=== PATIENT | female | born 2000 | race Caucasian/White ===

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

== ENCOUNTER 2023-07-17 12:50 | Emergency (ER) | payer BC, SELFPAY ==
[2023-07-17 12:53] VITALS: BP 126/109; PULSE 92; RESP 18; TEMP 36.6; O2SAT 99; BMI 33.7
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
--- NOTE | 2023-07-17 13:25 | CT_ITS ---
STUDY: CT CERVICAL SPINE WITHOUT CONTRAST REASON FOR EXAM: Female, 23 years old. [facility] RADIATION DOSAGE (If Supplied By Facility): CTDIvol = ( 24.46 ) mGy, DLP = ( 545.21 ) mGycm TECHNIQUE: High resolution transaxial imaging was performed without contrast material. Sagittal and coronal images were reconstructed. Individualized dose optimization techniques were used for this CT. COMPARISON: None FINDINGS: Normal craniovertebral junction. Normal anterior atlantoaxial articulation. Normal odontoid process. There is straightening of the normal cervical lordosis. Normal vertebral bodies and posterior osseous elements. C2-3: Normal endplates. Normal disc height and morphology. Normal central canal and intervertebral neuroforamina. C3-4: Normal endplates. Normal disc height and morphology. Normal central canal and intervertebral neuroforamina. C4-5: Normal endplates. Normal disc height and morphology. Normal central canal and intervertebral neuroforamina. C5-6: Normal endplates. Normal disc height and morphology. Normal central canal and intervertebral neuroforamina. C6-7: Normal endplates. Normal disc height and morphology. Normal central canal and intervertebral neuroforamina. C7-T1: Normal endplates. Normal disc height and morphology. Normal central canal and intervertebral neuroforamina. There is a 1.5 cm x 0.8 cm hypodensity in the left lobe of the thyroid. CT/Spine Cervical without Contras IMPRESSION: Normal unenhanced CT examination of the cervical spine. Electronically Signed: Juliocesar Ronquillo MD at 13:40 EST ,
--- NOTE | 2023-07-17 13:25 | CT_ITS ---
STUDY: CT BRAIN WITHOUT CONTRAST REASON FOR EXAM: Female, 23 years old. [facility] RADIATION DOSAGE (If Supplied By Facility): CTDIvol = ( 44.99 ) mGy, DLP = ( 832.67 ) mGycm TECHNIQUE: Transaxial CT imaging of the brain was performed without administration of intravenous contrast material. Individualized dose optimization techniques were used for this CT. COMPARISON: No relevant priors. FINDINGS: Normal soft tissue structures. Normal calvarium. Normal size ventricles and extra-axial spaces for the patient''s age. Normal white matter tracts of the cerebral hemispheres. Normal basal ganglia and thalami. Normal brainstem. Normal cerebellum. There is no intracranial hemorrhage. There are no findings of an acute ischemic infarction. There is opacification of the right maxillary sinus. Small polyp or retention cyst at the base of the left maxillary sinus. Partial opacification of the anterior aspect of the right ethmoid sinus. CT/Brain/Head without Contrast IMPRESSION: Normal unenhanced CT scan of the brain. Sinusitis. Electronically Signed: Juliocesar Ronquillo MD at 13:38 EST ,
[2023-07-17] MEDS: Naproxen 500 MG Tablet PO (14:17)
[2023-07-17 14:20] VITALS: BP 120/68; PULSE 72; RESP 18; TEMP 36.6; O2SAT 100
--- OUTSIDE RECORDS SUMMARY | 2023-07-17 15:05 | XMS RPT_ITS | CCD ---
Author Name Unknown Address [id number] [place] [address] Organization [facility] Care Team Providers Care Travel Clerk Name Role Phone Nicole Pearce LPN Unavailable Unavailable Nicole Pearce LPN Unavailable Unavailable Lynette Alvarez MD Primary Care Provider Lynette Alvarez MD Primary Care Provider [phone] LYNETTE ALVAREZ Attending Unavailable LYNETTE ALVAREZ Primary Care Unavailable LYNETTE ALVAREZ Primary Care Unavailable LYNETTE ALVAREZ Primary Care Unavailable Allergies Allergy Classification Reported Allergen(s) Allergy Type Date of Onset Reaction(s) Facility (3 sources) environmental allergies [Other] Propensity to adverse reactions 0 [facility] Work Phone: (1 source) OTHER; Translations: [OTHER] Propensity to adverse reactions (disorder) 0 [facility] Repository Medications Current Medications Medication Drug Class(es) Dates Sig (Normalized) Sig (Original) methylPREDNISolone (1 source) Corticosteroid Start: 11-23-2021 End: 11-29-2021 methylPREDNISolone (MEDROL, CHAPARRO,) 4 mg Dose-Pack Follow dosing instructions, take with food. 1 Package 0 11/23/2021 11/29/2021 Active Completed/Discontinued Medications Medication Drug Class(es) Dates Sig (Normalized) Sig (Original) adapalene 0.001 mg/mg / benzoyl peroxide 0.025 mg/mg topical gel (1 source) Retinoid Start: 07-02-2022 adapalene-benzoyl peroxide (EPIDUO) 0.1-2.5 % glwp Indications: Acne vulgaris Apply sparingly to the face at bedtime 45 g 4 07/02/2022 Active Problems Problem Classification Problem Date Documented Da te Episodic/Chronic Allergic reactions (3 sources) Atopic dermatitis; Translations: [Other atopic dermatitis] Onset: 08-13-2005 08-13-2005 Chronic Asthma (3 sources) Mild intermittent asthma; Translations: [Mild intermittent asthma, uncomplicated] Onset: 10-08-2012 10-08-2012 Chronic Diabetes mellitus without complication (1 source) Ketonuria; Translations: [Acetonuria] Episodic Headache; including migraine (3 sources) Migraine without aura, not refractory ; Translations: [Migraine without aura, not intractable, without status migrainosus] Onset: 12-19-2017 01-14-2019 Chronic Menstrual disorders (1 source) Irregular periods; Translations: [Irregular menstruation, unspecified] Chronic Other disorders of stomach and duodenum (1 source) Upset stomach; Translations: [Functional dyspepsia] Episodic Other skin disorders (1 source) Eruption; Translations: [Rash and other nonspecific skin eruption] Episodic Other skin disorders (1 source) Acne vulgaris; Translations: [Acne vulgaris] Episodic Results Test Name Value Interpretation Reference Range Facil ity Vital Signs Date Time Vital Sign Value Performing Clinician Faci lity 07-02-2022 10:23-0500 Body temperature 99.1 [degF] Lynette Alvarez MD Work Phone: [facility] 07-02-2022 10:23-0500 Body weight 90.08 kg Lynette Alvarez MD Work Phone: [facility] 07-02-2022 10:23-0500 Diastolic blood pressure 62 mm[Hg] Lynette Alvarez MD Work Phone: [facility] 07-02-2022 10:23-0500 Heart rate 100 /min Lynette Alvarez MD Work Phone: [facility] 07-02-2022 10:23-0500 Respiratory rate 16 /min Lynette Alvarez MD Work Phone: [facility] 07-02-2022 10:23-0500 Systolic blood pressure 118 mm[Hg] Lynette Alvarez MD Work Phone: [facility] 06-27-2022 10:11-0500 Body temperature 97 [degF] Randall Beckham APRN.CNP Work Phone: [facility] 06-27-2022 10:11-0500 Body weight 89.72 kg Randall Beckham WAITER/[employer]ESS [employer]USB[employer] Work Phone: [facility] 06-27-2022 10:11-0500 Diastolic blood pressure 82 mm[Hg] Randall Chapincito WAITER/[employer]ESS [employer].DA[employer] HUSBANDMAN Work Phone: [facility] 06-27-2022 10:11-0500 Heart rate 130 /min Randall Chapincito WAITER/[employer] HUSBANDMAN Work Phone: [facility] 06-27-2022 10:11-0500 Respiratory rate 20 /min Randall Chapincito WAITER/[employer] HUSBANDMAN Work Phone: [facility] 06-27-2022 10:11-0500 SaO2% (BldA) [Mass fraction] 99 % Randall Chapincito WAITER/[employer] HUSBANDMAN Work Phone: [facility] 06-27-2022 10:11-0500 Systolic blood pressure 124 mm[Hg] Randall Chapincito WAITER/[employer] HUSBANDMAN Work Phone: [facility] 11-23-2021 07:45-0400 Body temperature 98.8 [degF] Jazzy Yung WAITER/[employer]ESS [employer].DA[employer] HUSBANDMAN Work Phone: [facility] 11-23-2021 07:45-0400 Body weight 87.82 kg Jazzyjennifer Jaimesk WAITER/[employer]ESS [employer] HUSBANDMAN Work Phone: [facility] 11-23-2021 07:45-0400 Diastolic blood pressure 66 mm[Hg] Jazzy Yung WAITER/[employer].DAIR[employer] HUSBANDMAN Work Phone: [facility] 11-23-2021 07:45-0400 Heart rate 127 /min Jazzy Yung WAITER/[employer].DAIR[employer] HUSBANDMAN Work Phone: [facility] 11-23-2021 07:45-0400 Respiratory rate 18 /min Jazzy Yung WAITER/[employer].DA[employer] HUSBANDMAN Work Phone: [facility] 11-23-2021 07:45-0400 SaO2% (BldA) [Mass fraction] 97 % Jazzy Yung WAITER/[employer].DA[employer] HUSBANDMAN Work Phone: [facility] 11-23-2021 07:45-0400 Systolic blood pressure 122 mm[Hg] Jazzy Barragan APRN.DAIRY HUSBANDMAN Work Phone: [facility] 12-20-2016 12:39-0400 BMI (Body Mass Index) 25.46 kg/m2 Nicole Pearce LPN [facility] Work Phone: 12-20-2016 12:39-0400 BP Diastolic 52 mm[Hg] Nicole Pearce LPN [facility] Work Phone: 12-20-2016 12:39-0400 BP Systolic 122 mm[Hg] Nicole Pearce LPN [facility] Work Phone: 12-20-2016 12:39-0400 Height 165.1 cm Nicole Pearce LPN [facility] Work Phone: 12-20-2016 12:39-0400 Pulse (Heart Rate) 85 /min Nicole Pearce LPN [facility] Work Phone: 12-20-2016 12:39-0400 Weight 69.4 kg Nicole Pearce LPN [facility] Work Phone: Encounters Encounter Date Encounter Type Care Provider Facility Start: 07-02-2022 End: 07-02-2022 ambulatory LYNETTE ALVAREZ Facility:[facility] Start: 07-02-2022 End: 07-02-2022 Patient encounter procedure Lynette Alvarez MD Work Phone: [facility] Procedures Date Procedure Procedure Detail Performing Clinician Start: 07-02-2022 Gluc bld gluc mntr dev cleared fda spec home use Lynette Alvarez MD Work Phone: Start: 07-02-2022 Urnls dip stick/tablet rgnt auto w/o microscopy Lynette Alvarez MD Work Phone: Start: 06-27-2022 End: 06-27-2022 Urnls dip stick/tablet rgnt auto w/o microscopy Randall Beckham APRN.DAIRY HUSBANDMAN Work Phone: Start: 07-09-2018 Adult depression screening assessment Jazzy Barragan APRN.DAIRY HUSBANDMAN Work Phone: Start: 12-20-2016 History and physical examination, sports participation Sports physical examination Nicole Ramses ANDERSEN Plan of Treatment Date Care Activity Detail Author Start: 01-04-2024 Urine microalbumin profile DTAP,TDAP,TD (7 - Td or Tdap) [facility] Start: 07-02-2023 ANNUAL PCP TEAM CHRONIC DISEASE VISIT ANNUAL PCP TEAM CHRONIC DISEASE VISIT [facility] Start: 06-22-2022 ANNUAL PCP TEAM CHRONIC DISEASE VISIT ANNUAL PCP TEAM CHRONIC DISEASE VISIT [facility] Start: 05-26-2022 DEPRESSION ASSESSMENT DEPRESSION ASSESSMENT [facility] Start: 01-24-2022 Influenza vaccination INFLUENZA (#1) [facility] Start: 07-05-2021 CHLAMYDIA SCREENING (18-24) CHLAMYDIA SCREENING (18-24) [facility] Start: 07-05-2021 GC (GONORRHEA) SCREENING (18-24) GC (GONORRHEA) SCREENING (18-24) [facility] Start: 2020 SPIROMETRY SPIROMETRY [facility] Start: 07-09-2019 Adult depression screening assessment DEPRESSION SCREENING [facility] Start: 07-09-2019 ASTHMA CONTROL TEST ASTHMA CONTROL TEST [facility] Start: 12-20-2016 End: 12-20-2016 Appointment Appointment [facility] Work Phone: Start: 2016 PEDS TO ADULT TRANSITION ANNUAL ASSESSMENT PEDS TO ADULT TRANSITION ANNUAL ASSESSMENT [facility] Start: 2014 PEDS TO ADULT TRANSITION INITIAL DISCUSSION PEDS TO ADULT TRANSITION INITIAL DISCUSSION [facility] Start: 2012 MENINGOCOCCAL B: Consider based on risk (1 of 2 - Risk Bexsero 2-dose series) MENINGOCOCCAL B: Consider based on risk (1 of 2 - Risk Bexsero 2-dose series) [facility] Start: 2008 PNEUMOCOCCAL (1 - PCV) PNEUMOCOCCAL (1 - PCV) [facility] Start: 2004 ASTHMA ACTION PLAN ASTHMA ACTION PLAN [facility] Start: 2002 COVID-19 VACCINE (#1) COVID-19 VACCINE (#1) [facility] Glucose [Mass/volume ] in Serum or Plasma GLUCOSE, BLOOD (POC) Lab Routine Urine ketone Ordered: 07/02/2022 [facility] Work Phone: Immunizations Immunization Date Immunization Notes Care Provider Fa cility 07-09-2018 meningococcal polysaccharide (groups A, C, Y and W-135) diphtheria toxoid conjugate vaccine (MCV4P) Jazzy Jaimesk WAITER/WAITRESS [employer].[facility] Work Phone: [facility] Work Phone: 12-19-2014 human papilloma viru s vaccine, quadrivalent Jazzy Yung WAITER/WAITRESS [employer].[facility] Work Phone: [facility] Work Phone: 12-19-2014 meningococcal polysaccharide (groups A, C, Y and W-135) diphtheria toxoid conjugate vaccine (MCV4P) Jazzy Jaimesk WAITER/[employer]RESS [employer].[facility] Work Phone: [facility] Work Phone: 12-19-2014 varicella virus vaccine Bebo a Yung WAITER/[employer]ESS [employer].[facility] Work Phone: [facility] Work Phone: 01-03-2014 human papilloma viru s vaccine, quadrivalent Jazzyjennifer Jaimesk WAITER/[employer]RESS [employer].[facility] Work Phone: [facility] Work Phone: 01-03-2014 tetanus toxoid, redu mc diphtheria toxoid, and acellular pertussis vaccine, adsorbed Jazzy Yung WAITER/[employer]RESS [employer].[facility] Work Phone: [facility] Work Phone: 02-23-2009 influenza virus vacc ine, unspecified formulation Jazzyjennifer Barragan WAITER/[employer]RESS [employer].[facility] Work Phone: [facility] Work Phone: 12-14-2007 diphtheria, tetanus toxoids and acellular pertussis vaccine Jazzy Yung WAITER/[employer].[facility] Work Phone: [facility] Work Phone: 12-14-2007 measles, mumps and rubella virus vaccine Jazzy Yung WAITER/[employer].[facility] Work Phone: [facility] Work Phone: 12-14-2007 poliovirus vaccine, inactivated Jazyzjennifer Barragan WAITER/[employer]RESS [employer].[facility] Work Phone: [facility] Work Phone: 03-13-2004 influenza virus vacc ine, unspecified formulation Jazzyjennifer Barragan WAITER/[employer]RESS [employer] HUSB[employer] Work Phone: [facility] Work Phone: 07-28-2003 diphtheria, tetanus toxoids and acellular pertussis vaccine Jazzy Yung WAITER/[employer]ESS [employer]USB[employer] Work Phone: [facility] Work Phone: 07-28-2003 haemophilus influenz ae type b vaccine, HbOC conjugate Jazzy Barragan WAITER/[employer]RESS [employer] HUSB[employer] Work Phone: [facility] Work Phone: 07-28-2003 varicella virus vaccine Bebo ronnie Barragan WAITER/[employer]ESS [employer].[facility] Work Phone: [facility] Work Phone: 04-28-2003 influenza virus vacc ine, unspecified formulation Jazzy Barragan WAITER/[employer] Work Phone: [facility] Work Phone: 04-28-2003 measles, mumps and rubella virus vaccine Jazzy Barragan WAITER/[employer]RESS [employer]USB[employer] Work Phone: [facility] Work Phone: 04-28-2003 pneumococcal conjuga te vaccine, 7 valent Jazzy Barragan WAITER/[employer].[facility] Work Phone: [facility] Work Phone: 01-20-2003 hepatitis B vaccine, pediatric or pediatric/adolescent dosage Jazzy Barragan WAITER/[employer]ESS [employer]USB[employer] Work Phone: [facility] Work Phone: 01-20-2003 poliovirus vaccine, inactivated Jazzy Barragan WAITER/[employer]ESS [employer] HUSBAND[employer] Work Phone: [facility] Work Phone: 2002 diphtheria, tetanus toxoids and acellular pertussis vaccine Jazzy Barragan WAITER/[employer]ESS [employer]USB[employer] Work Phone: [facility] Work Phone: 2002 haemophilus influenz ae type b vaccine, HbOC conjugate Jazzy Barragan WAITER/[employer]RESS [employer] HUSBAND[employer] Work Phone: [facility] Work Phone: 2002 pneumococcal conjuga te vaccine, 7 valent Jazzy Yung WAITER/[employer]RESS [employer].[facility] Work Phone: [facility] Work Phone: 2002 diphtheria, tetanus toxoids and acellular pertussis vaccine Jazzy Yung WAITER/[employer]RESS [employer].[facility] Work Phone: [facility] Work Phone: 2002 haemophilus influenz ae type b vaccine, HbOC conjugate Jazzy Yung WAITER/WAITRESS [employer] HUSBANDMAN Work Phone: [facility] Work Phone: 2002 pneumococcal conjuga te vaccine, 7 valent Jazzy Yung WAITER/[employer]RESS [employer].[facility] Work Phone: [facility] Work Phone: 2002 poliovirus vaccine, inactivated Jazzy Yung WAITER/[employer]RESS [employer].[facility] Work Phone: [facility] Work Phone: 2002 diphtheria, tetanus toxoids and acellular pertussis vaccine Jazzy Yung WAITER/[employer]RESS [employer].[facility] Work Phone: [facility] Work Phone: 2002 haemophilus influenz ae type b vaccine, HbOC conjugate Jazzy Yung WAITER/WAITRESS [employer].[facility] Work Phone: [facility] Work Phone: 2002 pneumococcal conjuga te vaccine, 7 valent Jazzy Yung WAITER/WAITRESS [employer]USB[employer] Work Phone: [facility] Work Phone: 2002 poliovirus vaccine, inactivated Jazzy Yung WAITER/[employer]RESS [employer].[facility] Work Phone: [facility] Work Phone: 2002 hepatitis B vaccine, pediatric or pediatric/adolescent dosage Jazzy Yung WAITER/[employer]RESS [employer]USB[employer] Work Phone: [facility] Work Phone: 2002 hepatitis B vaccine, pediatric or pediatric/adolescent dosage Jazzy Yung WAITER/[employer]RESS [employer]USBAND[employer] Work Phone: [facility] Work Phone: Payers Date Payer Category Payer Unknown [employer] PPO [id number] 2021-Present [phone] [address] [place] [address] PPO [id number] 2021 Unknown [employer]IA [employer] PPO [id number] 2021-Present [phone] [address] [place] [address] PPO [id number] 2021 Unknown [id number] Social History Date Type Detail Facility Start: 11-23-2021 End: 06-27-2022 Tobacco smoking status NHIS Smokes tobacco daily [facility] Start: 11-23-2021 End: 06-27-2022 Tobacco use and exposure Smokeless tobacco non-user [facility] Start: 11-23-2021 End: 07-02-2022 Alcohol intake Current non-drinker of alcohol (finding) [facility] Start: 11-23-2021 End: 06-27-2022 Tobacco Comment vaping [facility] Start: 2002 Sex Assigned At Not on file [facility] Start: 11-13-2021 End: 11-23-2021 Exposure to SARS-CoV-2 (event) Not sure [facility] Work Phone: Clinical Notes 10-08-2012 to 07-02-2022 Lynette Alvarez MD - 07/02/2022 10:30 AM Bianca Beckham APRN.WES - 06/27/2022 10:24 AM Martha Barragan APRN.CNP - 11/23/2021 7:57 AM EDTPatient Instructions Note Date & Type Note Facility 07-02-2022 Note HNO ID: [id number] Author: Lynette Alvarez MD Service: ? Author Type: Physician Type: Progress Notes Filed: 07/10/2022 8:10 PM Note Text: Nandini Pinon is a 22-year-old female who presents to the office today with concerns of urinary ketones present when she was seen at the urgent care in [facility] on June 27, 2022. Presented to urgent care because of significant abdominal pain, headache and vomiting. Patient had just started her menstrual period. The patient has a strong history of dysmenorrhea. Currently seeing [facility] [employer] [facility] at [place] at [facility] ACTIVE PROBLEM LIST Other Atopic Dermatitis and Related Conditions Mild Intermittent Asthma Migraine Without Aura and Without Status Migrainosus, Not Intractable PAST MEDICAL HISTORY Diagnosis Date Asthma Concussion 2018 PM - PAST MEDICAL HISTORY OF 12/14/07 normal color vision PAST SURGICAL HISTORY Procedure Laterality Date TONSILLECTOMY AND ADENOIDECTOMY age 11 or 12 - Dr Cruz ALLERGIES Allergen Reactions Environmental Aller* 07/02/22 1023 BP: 118/62 Pulse: 100 Resp: 16 Temp: 37.3 ?C (99.1 ?F) TempSrc: Temporal Weight: 90.1 kg (198 lb 9.6 oz) GENERAL: alert and active in no apparent distress, nontoxic-appearing HEAD: Normocephalic, atraumatic EYES: No scleral icterus is present NECK: Negative for anterior or posterior cervical adenopathy. No masses are present in the suprasternal notch. No supraclavicular adenopathy is present. Thyroid with normal shape size and consistency CARDIOVASCULAR : Regular Rate and Rhythm without murmurs or clicks, well perfused LUNGS: clear to auscultation, excellent air exchange, resonant to percussion, easy respirations without grunting/flaring/retracting. ABDOMEN : Abdomen is soft, nontender, without organomegaly or masses. MUSCULOSKELETAL: Extremities with FROM and no problems identified. EXTREMITIES: No clubbing, cyanosis, or edema. NEUROLOGICAL : Muscle tone normal and Normal age appropriate gait SKIN : Negative for jaundice. Acne is present on the face. Lesions are approximately 10-15 and are predominantly close comedones. No nodular/cystic lesions are noted. No scarring is noted. Component Latest Ref Rng AND Units 07/02/2022 Glucose, Point of Care 74 - 99 mg/dL 118 (A) Component Latest Ref Rng AND Units 07/02/2022 GLUCOSE UA (POCT) Negative mg/dL Negative BILIRUBIN UA (POCT) Negative Negative KETONE UA (POCT) Negative mg/dL Negative SPECIFIC GRAVITY UA (POCT) 1.005 - 1.030 >=1.030 HEMOGLOBIN/BLOOD UA (POCT) Negative Small (A) PH UA (POCT) 4.5 - 8.0 7.0 PROTEIN UA (POCT) Negative mg/dL Negative UROBILINOGEN UA (POCT) Normal E.U./dL 0.2 NITRITE UA (POCT) Negative Negative LEUKOCYTES UA (POCT) Negative Negative COLOR UA (POCT) Dark yellow CLARITY UA (POCT) Clear Impression: (R82.4) Urine ketone (primary encounter diagnosis) (L70.0) Acne vulgaris Plan: Office Visit on 07/02/22 UA DIP, URINE (POC) GLUCOSE, BLOOD (POC) GLUCOSE, BLOOD (POC) adapalene-benzoyl peroxide (EPIDUO) 0.1-2.5 % glwp Education given. Course of illness/condition and rationale for treatment discussed. I spent a total of 25 minutes on the date of the service which included preparing to see the patient, [id number] patient care, completing clinical documentation, obtaining and/or reviewing separately obtained history, performing a medically appropriate examination, counseling and educating the patient/family/caregiver, and ordering medications, tests, or procedures. Follow-up 3 months Lynette Alvarez MD [facility] Department of Pediatrics, [facility] 07-02-2022 History of Presen t illness Narrative Nandini Pinon is a 22-year-old female who presents to the office today with concerns of urinary ketones present when she was seen at the urgent care in [place] ( [facility] ) on June 27, 2022. Presented to urgent care because of significant abdominal pain, headache and vomiting. Patient had just started her menstrual period. The patient has a strong history of dysmenorrhea. Currently seeing [facility] at [place] at [facility] ACTIVE PROBLEM LIST Other Atopic Dermatitis and Related Conditions Mild Intermittent Asthma Migraine Without Aura and Without Status Migrainosus, Not Intractable PAST MEDICAL HISTORY Diagnosis Date Asthma Concussion 2018 PMH - PAST MEDICAL HISTORY OF 12/14/07 normal color vision PAST SURGICAL HISTORY Procedure Laterality Date TONSILLECTOMY & ADENOIDECTOMY <AGE 14 age 11 or 12 - Dr Cruz ALLERGIES Allergen Reactions Environmental Aller* 07/02/22 1023 BP: 118/62 Pulse: 100 Resp: 16 Temp: 37.3 C (99.1 F) TempSrc: Temporal Weight: 90.1 kg (198 lb 9.6 oz) GENERAL: alert and active in no apparent distress, nontoxic-appearing HEAD: Normocephalic, atraumatic EYES: No scleral icterus is present NECK: Negative for anterior or posterior cervical adenopathy. No masses are present in the suprasternal notch. No supraclavicular adenopathy is present. Thyroid with normal shape size and consistency CARDIOVASCULAR : Regular Rate and Rhythm without murmurs or clicks, well perfused LUNGS: clear to auscultation, excellent air exchange, resonant to percussion, easy respirations without grunting/flaring/retracting. ABDOMEN : Abdomen is soft, nontender, without organomegaly or masses. MUSCULOSKELETAL: Extremities with FROM and no problems identified. EXTREMITIES: No clubbing, cyanosis, or edema. NEUROLOGICAL : Muscle tone normal and Normal age appropriate gait SKIN : Negative for jaundice. Acne is present on the face. Lesions are approximately 10-15 and are predominantly close comedones. No nodular/cystic lesions are noted. No scarring is noted. Component Latest Ref Rng & Units 07/02/2022 Glucose, Point of Care 74 - 99 mg/dL 118 (A) Component Latest Ref Rng & Units 07/02/2022 GLUCOSE UA (POCT) Negative mg/dL Negative BILIRUBIN UA (POCT) Negative Negative KETONE UA (POCT) Negative mg/dL Negative SPECIFIC GRAVITY UA (POCT) 1.005 - 1.030 >=1.030 HEMOGLOBIN/BLOOD UA (POCT) Negative Small (A) PH UA (POCT) 4.5 - 8.0 7.0 PROTEIN UA (POCT) Negative mg/dL Negative UROBILINOGEN UA (POCT) Normal E.U./dL 0.2 NITRITE UA (POCT) Negative Negative LEUKOCYTES UA (POCT) Negative Negative COLOR UA (POCT) Dark yellow CLARITY UA (POCT) Clear Impression: (R82.4) Urine ketone (primary encounter diagnosis) (L70.0) Acne vulgaris Plan: Office Visit on 07/02/22 UA DIP, URINE (POC) GLUCOSE, BLOOD (POC) GLUCOSE, BLOOD (POC) adapalene-benzoyl peroxide (EPIDUO) 0.1-2.5 % glwp Education given. Course of illness/condition and rationale for treatment discussed. I spent a total of 25 minutes on the date of the service which included preparing to see the patient, [id number] patient care, completing clinical documentation, obtaining and/or reviewing separately obtained history, performing a medically appropriate examination, counseling and educating the patient/family/caregiver, and ordering medications, tests, or procedures. Follow-up 3 months Lynette Alvarez MD [facility] Department of Pediatrics, [facility] documented in this encounter [facility] 06-27-2022 Note HNO ID: [id number] Author: Randall Beckham APRN.DAIRY HUSBANDMAN Service: ? Author Type: Nurse Practitioner Type: Progress Notes Filed: 06/27/2022 10:34 AM Note Text: Subjective HPI HPI Nandini Pinon is a 22 year old female who presents today for CC of abd cramping, h/a, dry heaving. This started 1 day ago. Has tried nothing for relief. Symptoms are worsened by nothing. Risk factors started control 1 month ago, started unprotected sex 2 weeks after birthcontrol started. .Patient presents with: Abdominal Pain: RECINOS, vomiting x1 day PAST MEDICAL HISTORY Diagnosis Date Asthma Concussion 2018 PMH - PAST MEDICAL HISTORY OF 12/14/07 normal color vision PAST SURGICAL HISTORY Procedure Laterality Date TONSILLECTOMY AND ADENOIDECTOMY age 11 or 12 - Dr Cruz ALLERGIES Environmental Allergies [Other] MEDICATIONS L-Norgest and E Estradiol-E Estrad 0.15 mg-30 mcg (84)/10 mcg (7) Take 1 tablet by mouth once daily. naproxen (NAPROSYN) 500 mg tablet MULTI-VITAMIN ORAL Take 1 tablet by mouth once daily. triamcinolone acetonide (KENALOG) 0.1 % cream Apply 1 application to affected area three times daily. Apply sparingly to area for rash/itching. (Patient not taking: Reported on 06/27/2022) topiramate (TOPAMAX) 50 mg tablet TAKE 1 TAB (50 MG) BY MOUTH NIGHTLY AT BEDTIME (Patient not taking: Reported on 11/23/2021) FAMILY HISTORY Problem Relation Age of Onset Hypertension Maternal Grandmother other (migraines) Maternal Grandmother Social History Tobacco Use Smoking status: Every Day Smokeless tobacco: Never Tobacco comments: vaping Substance Use Topics Alcohol use: No Drug use: No Review of Systems Constitutional: Negative for chills, fever and weight loss. Respiratory: Negative for cough, shortness of breath and wheezing. Cardiovascular: Negative for chest pain and palpitations. Gastrointestinal: Negative for abdominal pain, blood in stool, constipation, diarrhea, heartburn, melena, nausea and vomiting. Genitourinary: Negative for dysuria, flank pain, frequency, hematuria and urgency. Musculoskeletal: Negative for myalgias. Objective Blood pressure 124/82, pulse (!) 130, temperature 36.1 ?C (97 ?F), resp. rate 20, weight 89.7 kg (197 lb 12.8 oz), last menstrual period 06/26/2022, SpO2 99 %. Physical Exam Constitutional: General: She is not in acute distress. Appearance: Normal appearance. She is not toxic-appearing. Cardiovascular: Rate and Rhythm: Normal rate and regular rhythm. Heart sounds: Normal heart sounds. Pulmonary: Effort: Pulmonary effort is normal. Breath sounds: Normal breath sounds. Abdominal: General: Bowel sounds are normal. Palpations: Abdomen is soft. Tenderness: There is no abdominal tenderness. There is no right CVA tenderness or left CVA tenderness. Skin: General: Skin is warm and dry. ASSESSMENT/PLAN: 1. Irregular menses - ICD9: 626.4, ICD10: N92.6 Preg negative Ua/blood, currently on period F/u with ob in 3 days of s/s persist Urgent f/u for worsening s/s. - HCG QUAL UR B/O - UA DIP, URINE (POC) Randall Beckham APRN.DAIRY HUSBANDMAN [facility] 06-27-2022 History of Presen t illness Narrative Images from the original note were not included. Subjective HPI HPI Nandini Pinon is a 22 year old female who presents today for CC of abd cramping, h/a, dry heaving. This started 1 day ago. Has tried nothing for relief. Symptoms are worsened by nothing. Risk factors started control 1 month ago, started unprotected sex 2 weeks after birthcontrol started. .Patient presents with: Abdominal Pain: RECINOS, vomiting x1 day PAST MEDICAL HISTORY Diagnosis Date Asthma Concussion 2018 PM[facility] - PAST MEDICAL HISTORY OF 12/14/07 normal color vision PAST SURGICAL HISTORY Procedure Laterality Date TONSILLECTOMY & ADENOIDECTOMY <AGE 14 age 11 or 12 - Dr Cruz ALLERGIES Environmental Allergies [Other] MEDICATIONS L-Norgest and E Estradiol-E Estrad 0.15 mg-30 mcg (84)/10 mcg (7) Take 1 tablet by mouth once daily. naproxen (NAPROSYN) 500 mg tablet MULTI-VITAMIN ORAL Take 1 tablet by mouth once daily. triamcinolone acetonide (KENALOG) 0.1 % cream Apply 1 application to affected area three times daily. Apply sparingly to area for rash/itching. (Patient not taking: Reported on 06/27/2022) topiramate (TOPAMAX) 50 mg tablet TAKE 1 TAB (50 MG) BY MOUTH NIGHTLY AT BEDTIME (Patient not taking: Reported on 11/23/2021) FAMILY HISTORY Problem Relation Age of Onset Hypertension Maternal Grandmother other (migraines) Maternal Grandmother Social History Tobacco Use Smoking status: Every Day Smokeless tobacco: Never Tobacco comments: vaping Substance Use Topics Alcohol use: No Drug use: No Review of Systems Constitutional: Negative for chills, fever and weight loss. Respiratory: Negative for cough, shortness of breath and wheezing. Cardiovascular: Negative for chest pain and palpitations. Gastrointestinal: Negative for abdominal pain, blood in stool, constipation, diarrhea, heartburn, melena, nausea and vomiting. Genitourinary: Negative for dysuria, flank pain, frequency, hematuria and urgency. Musculoskeletal: Negative for myalgias. Objective Blood pressure 124/82, pulse (!) 130, temperature 36.1 C (97 F), resp. rate 20, weight 89.7 kg (197 lb 12.8 oz), last menstrual period 06/26/2022, SpO2 99 %. Physical Exam Constitutional: General: She is not in acute distress. Appearance: Normal appearance. She is not toxic-appearing. Cardiovascular: Rate and Rhythm: Normal rate and regular rhythm. Heart sounds: Normal heart sounds. Pulmonary: Effort: Pulmonary effort is normal. Breath sounds: Normal breath sounds. Abdominal: General: Bowel sounds are normal. Palpations: Abdomen is soft. Tenderness: There is no abdominal tenderness. There is no right CVA tenderness or left CVA tenderness. Skin: General: Skin is warm and dry. ASSESSMENT/PLAN: 1. Irregular menses - ICD9: 626.4, ICD10: N92.6 Preg negative Ua/blood, currently on period F/u with ob in 3 days of s/s persist Urgent f/u for worsening s/s. - HCG QUAL UR B/O - UA DIP, URINE (POC) Randall Beckham APRN.DAIRY HUSBANDMAN documented in this encounter [facility] 11-23-2021 Note HNO ID: [id number] Author: Jazzy Barragan APRN.CNP Service: ? Author Type: Nurse Practitioner Type: Progress Notes Filed: 11/23/2021 8:16 AM Note Text: Subjective The history is provided by the patient. No dinkey press operator was used. Nandini Pinon is a 21 year old female who presents with a complaint of a rash on the head, on the neck and on the arm for the past 1 day(s) that is gradually worsening. The patients reports using new hair dye. The rash is discribed as red, vesicular, puritic Past treatments No Does the patient have a personal history of: Seasonal allergies: no Recent travel: no Recent infections: no Beginning a new medication: no Symptoms are triggered by: none Other symtoms include: upset stomach, nausea, x 1 episode looser stools BP 122/66 Pulse (!) 127 Temp 37.1 ?C (98.8 ?F) Resp 18 Wt 87.8 kg (193 lb 9.6 oz) LMP 11/14/2021 SpO2 97% Social History Tobacco Use - Smoking status: Current Every Day Smoker - Smokeless tobacco: Never Used - Tobacco comment: vaping Substance Use Topics - Alcohol use: No - Drug use: No PAST MEDICAL HISTORY Diagnosis Date - Asthma - Concussion 2018 PMH - PAST MEDICAL HISTORY OF 12/14/07 normal color vision I have confirmed and edited as necessary, the [facility] Review of Systems Constitutional: Negative for chills and fever. Gastrointestinal: Positive for diarrhea and nausea. Negative for abdominal pain and vomiting. Genitourinary: Negative for dysuria, flank pain, frequency, hematuria and urgency. Skin: Positive for itching and rash. Objective Physical Exam Vitals and nursing note reviewed. Constitutional: Appearance: Normal appearance. Abdominal: General: Bowel sounds are normal. There is no abdominal bruit. Palpations: Abdomen is not rigid. There is no mass or pulsatile mass. Tenderness: There is no abdominal tenderness. There is no guarding or rebound. Negative signs include Sharpe's sign and McBurney's sign. Skin: Neurological: Mental Status: She is alert and oriented to person, place, and time. Psychiatric: Mood and Affect: Affect normal. ASSESSMENT/PLAN: 1. Rash - ICD9: 782.1, ICD10: R21 (primary diagnosis) Appears to be contact dermatitis Medrol dose pack as ordered Benadryl/zyrtec for itching Triamcinolone cream 2. Upset stomach - ICD9: 536.8, ICD10: K30 - [place] diet, hydrate - Does not appear to be viral, possible allergic reaction - If continues to follow up with pcp for recheck Diagnosis and treatment plan were discussed and questions were answered to the patient's satisfaction. Pt acknowledged understanding of concepts and follow up plan. Specific signs and symptoms that would indicate the need for higher level of care were discussed in detail warranting prompt ER evaluation. Jazzy Barragan APRN.[facility] 11-23-2021 History of Presen t illness Narrative Images from the original note were not included. Subjective The history is provided by the patient. No dinkey press operator was used. Nandini Pinon is a 21 year old female who presents with a complaint of a rash on the head, on the neck and on the arm for the past 1 day(s) that is gradually worsening. The patients reports using new hair dye. The rash is discribed as red, vesicular, puritic Past treatments No Does the patient have a personal history of: Seasonal allergies: no Recent travel: no Recent infections: no Beginning a new medication: no Symptoms are triggered by: none Other symtoms include: upset stomach, nausea, x 1 episode looser stools BP 122/66 Pulse (!) 127 Temp 37.1 C (98.8 F) Resp 18 Wt 87.8 kg (193 lb 9.6 oz) LMP 11/14/2021 SpO2 97% Social History Tobacco Use Smoking status: Current Every Day Smoker Smokeless tobacco: Never Used Tobacco comment: vaping Substance Use Topics Alcohol use: No Drug use: No PAST MEDICAL HISTORY Diagnosis Date Asthma Concussion 2019 PM - PAST MEDICAL HISTORY OF 12/14/07 normal color vision I have confirmed and edited as necessary, the [facility] Review of Systems Constitutional: Negative for chills and fever. Gastrointestinal: Positive for diarrhea and nausea. Negative for abdominal pain and vomiting. Genitourinary: Negative for dysuria, flank pain, frequency, hematuria and urgency. Skin: Positive for itching and rash. Objective Physical Exam Vitals and nursing note reviewed. Constitutional: Appearance: Normal appearance. Abdominal: General: Bowel sounds are normal. There is no abdominal bruit. Palpations: Abdomen is not rigid. There is no mass or pulsatile mass. Tenderness: There is no abdominal tenderness. There is no guarding or rebound. Negative signs include Sharpe's sign and McBurney's sign. Skin: Neurological: Mental Status: She is alert and oriented to person, place, and time. Psychiatric: Mood and Affect: Affect normal. ASSESSMENT/PLAN: 1. Rash - ICD9: 782.1, ICD10: R21 (primary diagnosis) Appears to be contact dermatitis Medrol dose pack as ordered Benadryl/zyrtec for itching Triamcinolone cream 2. Upset stomach - ICD9: 536.8, ICD10: K30 - [place] diet, hydrate - Does not appear to be viral, possible allergic reaction - If continues to follow up with pcp for recheck Diagnosis and treatment plan were discussed and questions were answered to the patient's satisfaction. Pt acknowledged understanding of concepts and follow up plan. Specific signs and symptoms that would indicate the need for higher level of care were discussed in detail warranting prompt ER evaluation. Jazzy Barragan APRN.CNP documented in this encounter [facility] 11-23-2021 Instructions Jazzy Barragan APRN.CNP - 11/23/2021 7:57 AM EDT Medrol dose pack as ordered Benadryl 25-50 mg at bedtime Zyrtec 10 mg By mouth daily Triamcinolone cream to arms and neck * Seek medical care immediately, call 911, go to ER if you have chest pain, difficulty breathing, shortness of breath, inability to swallow. documented in this encounter [facility] documented as of this encounter (statuses as of 11/23/2021) [facility] History of Past illness Narrative* Problem Noted Date Resolved Date Tonsillar hypertrophy 10/08/2012 01/03/2014 documented as of this encounter (statuses as of 06/27/2022) [facility] History of Past illness Narrative* Problem Noted Date Resolved Date Tonsillar hypertrophy 10/08/2012 01/03/2014 documented as of this encounter (statuses as of 07/11/2022) [facility] Rash- Primary Rash and other nonspecific skin eruption Upset stomach Dyspepsia and other specified disorders of function of stomach [facility] Irregular menses- Primary Irregular menstrual cycle [facility] Diagnosis Urine ketone- Primary Acetonuria Acne vulgaris Other acne documented in this encounter [facility] Summary Purpose Family History No Family History Records FoundNo Family History Records FoundNo Family History Records Found Advance Directives No Advanced Directives Records FoundNo Advanced Directives Records FoundNo Advanced Directives Records Found Additional Source Comments INFORMATION SOURCE (unrecogn ized section and content) DATE CREATED AUTHOR AUTHOR'S ORGANIZ ATION 12/14/2019 [facility] [place] DATE CREATED AUTHOR AUTHOR'S ORGANIZ ATION 07/12/2022 [facility] Source Comments (unrecognize d section and content) In the event this informatio n is protected by the Federal Confidentiality of Alcohol and Drug Abuse Patient Records regulations: The Federal rules restrict any use of the information to criminally investigate or prosecute any alcohol or drug abuse patient.[facility] event this information is protected by the Federal Confidentiality of Alcohol and Drug Abuse Patient Records regulations: The Federal rules restrict any use of the information to criminally investigate or prosecute any alcohol or drug abuse patient.[facility] event this information is protected by the Federal Confidentiality of Alcohol and Drug Abuse Patient Records regulations: The Federal rules restrict any use of the information to criminally investigate or prosecute any alcohol or drug abuse patient.[facility] Reason for Visit (unrecogniz ed section and content) Reason Comments Abdominal Pain RECINOS, vomiting x1 day Reason Comments Discussion Would like to have u rine rechecked due to ketone level Care Teams (unrecognized sec tion and content) Travel Clerk Relationship Specialty Start Date End Date Lynette Alvarez MD [address] [place] [address] PCP - General 02 Travel Clerk Relationship Specialty Start Date End Date Lynette Alvarez MD [address], [place] [id number] PCP - General 02 FOR RECORDS PERTAINING TO PATIENTS WHO ARE OR HAVE BEEN ENROLLED IN A CHEMICAL DEPENDENCY/SUBSTANCEABUSE PROGRAM, SOME INFORMATION MAY BE OMITTED. This clinical summary was aggregated from multiple sources. Caution should be exercised in using it in the provision of clinical care. This summary normalizes information from multiple sources, and as a consequence, information in this document may materially change the coding, format and clinical context of patient data. In addition, data may be omitted in some cases. CLINICAL DECISIONS SHOULD BE BASED ON THE PRIMARY CLINICAL RECORDS. [facility] [employer] [facility]. provides no warranty or guarantee of the accuracy or completeness of information in this document.
== END 2023-07-17 14:24 | disposition home or self-care (01) ==
PROVIDERS: Emergency Provider Emergency Medicine; PCP Pediatrics; Visit Provider Emergency Medicine
DX: S16.1XXA Strain of muscle, fascia and tendon at neck level, initial encounter (principal); S40.012A Contusion of left shoulder, initial encounter; F17.290 Nicotine dependence, other tobacco product, uncomplicated; V43.52XA Car driver injured in collision with other type car in traffic accident, initial encounter
CPT/HCPCS: 70450; 71046; 72125; 73030; 99282

== ENCOUNTER 2023-07-26 13:28 | Emergency (ER) | payer BC, SELFPAY ==
[2023-07-26 13:30] VITALS: BP 93/64; PULSE 92; RESP 14; TEMP 36.8; O2SAT 100; BMI 33.3
--- OUTSIDE RECORDS SUMMARY | 2023-07-26 13:44 | XMS RPT_ITS | CCD ---
Author Name Unknown Address [address] [place] [address] Organization [facility] Care Team Providers Care Die Trouble Shooter Name Role Phone Nicole Pearce LPN Unavailable Unavailable Nicole Pearce LPN Unavailable Unavailable Lynette Alvarez MD Primary Care Provider [phone] Lynette Alvarez MD Primary Care Provider LYNETTE ALVAREZ Attending Unavailable LYNETTE ALVAREZ Primary Care Unavailable LYNETTE ALVAREZ Primary Care Unavailable LYNETTE ALVAREZ Primary Care Unavailable Allergies Allergy Classification Reported Allergen(s) Allergy Type Date of Onset Reaction(s) Facility (3 sources) environmental allergies [Other] Propensity to adverse reactions 0 [facility] Work Phone: (1 source) OTHER; Translations: [OTHER] Propensity to adverse reactions (disorder) 0 [facility] Medications Current Medications Medication Drug Class(es) [...] 99.1 [degF] Lynette Alvarez MD Work Phone: [facility] 07-02-2022 10:23-0500 Body weight 90.08 kg Lynette Alvarez MD Work Phone: [facility] 07-02-2022 10:23-0500 Diastolic blood pressure 62 mm[Hg] Lynette Alvarez MD Work Phone: [facility] 07-02-2022 10:23-0500 Heart rate 100 /min Lynette Alvarez MD Work Phone: [facility] 07-02-2022 10:23-0500 Respiratory rate 16 /min Lynette Alvarez MD Work Phone: [facility] 07-02-2022 10:23-0500 Systolic blood pressure 118 mm[Hg] Lynette Alvarez MD Work Phone: [facility] 06-27-2022 10:11-0500 Body temperature 97 [degF] Randall Beckham APRN.CNP Work Phone: [facility] 06-27-2022 10:11-0500 Body weight 89.72 kg Randall Beckham DATE PULLER.PHARMACY HELPER Work Phone: [facility] 06-27-2022 10:11-0500 Diastolic blood pressure 82 mm[Hg] Randall Chapincito DATE PULLER.PHARMACY HELPER Work Phone: [facility] 06-27-2022 10:11-0500 Heart rate 130 /min Randall Chapincito DATE PULLER.PHARMACY HELPER Work Phone: [facility] 06-27-2022 10:11-0500 Respiratory rate 20 /min Randall Chapincito DATE PULLER.PHARMACY HELPER Work Phone: [facility] 06-27-2022 10:11-0500 SaO2% (BldA) [Mass fraction] 99 % Randall Chapincito DATE PULLER.PHARMACY HELPER Work Phone: [facility] 06-27-2022 10:11-0500 Systolic blood pressure 124 mm[Hg] Randall Chapincito DATE PULLER.PHARMACY HELPER Work Phone: [facility] 11-23-2021 07:45-0400 Body temperature 98.8 [degF] Jazzy Yung DATE PULLER.PHARMACY HELPER Work Phone: [facility] 11-23-2021 07:45-0400 Body weight 87.82 kg Jazzyjennifer Jaimesk DATE PULLER.PHARMACY HELPER Work Phone: [facility] 11-23-2021 07:45-0400 Diastolic blood pressure 66 mm[Hg] Jazzy Yung DATE PULLER.PHARMACY HELPER Work Phone: [facility] 11-23-2021 07:45-0400 Heart rate 127 /min Jazzy Yung DATE PULLER.PHARMACY HELPER Work Phone: [facility] 11-23-2021 07:45-0400 Respiratory rate 18 /min Jazzy Yung DATE PULLER.PHARMACY HELPER Work Phone: [facility] 11-23-2021 07:45-0400 SaO2% (BldA) [Mass fraction] 97 % Jazzy Yung DATE PULLER.PHARMACY HELPER Work Phone: [facility] 11-23-2021 07:45-0400 Systolic blood pressure 122 mm[Hg] Jzazy Barragan APRN.PHARMACY HELPER Work Phone: [facility] 12-20-2016 12:39-0400 BMI (Body Mass Index) 25.46 kg/m2 Nicole Pearce LPN [facility] Work Phone: 12-20-2016 12:39-0400 BP Diastolic 52 mm[Hg] Nicole Pearce LPN [facility] Work Phone: 12-20-2016 12:39-0400 BP Systolic 122 mm[Hg] Nicole Pearce LPN [facility] Work Phone: 12-20-2016 12:39-0400 Height 165.1 cm Nicole Pearce LPN [facility] Work Phone: 12-20-2016 12:39-0400 Pulse (Heart Rate) 85 /min Nicole Pearce LPN [facility] Work Phone: 12-20-2016 12:39-0400 Weight 69.4 kg Nicole Pearce LPN [facility] Work Phone: Encounters Encounter Date Encounter Type Care Provider Facility Start: 07-02-2022 End: 07-02-2022 ambulatory LYNETTE ALVAREZ Facility:[facility] Start: 07-02-2022 End: 07-02-2022 Patient encounter [...] stick/tablet rgnt auto w/o microscopy Randall Beckham APRN.PHARMACY HELPER Work Phone: Start: 07-09-2018 Adult depression screening assessment Jazzy Barragan APRN.PHARMACY HELPER Work Phone: Start: 12-20-2016 History and physical examination, sports participation Sports physical examination Nicole Ramses ANDERSEN Plan of Treatment Date Care Activity Detail Author Start: 01-04-2024 Urine microalbumin profile DTAP,TDAP,TD (7 - Td or Tdap) [facility] Start: 07-02-2023 ANNUAL PCP TEAM CHRONIC DISEASE VISIT ANNUAL PCP TEAM CHRONIC DISEASE VISIT [facility] Start: 06-22-2022 ANNUAL PCP TEAM CHRONIC DISEASE VISIT ANNUAL PCP TEAM CHRONIC DISEASE VISIT [facility] Start: 05-26-2022 DEPRESSION ASSESSMENT DEPRESSION ASSESSMENT [facility] Start: 01-24-2022 Influenza vaccination INFLUENZA (#1) [facility] Start: 07-05-2021 CHLAMYDIA SCREENING (18-24) CHLAMYDIA SCREENING (18-24) [facility] Start: 07-05-2021 GC (GONORRHEA) SCREENING (18-24) GC (GONORRHEA) SCREENING (18-24) [facility] Start: 2020 SPIROMETRY SPIROMETRY [facility] Start: 07-09-2019 Adult depression screening assessment DEPRESSION SCREENING [facility] Start: 07-09-2019 ASTHMA CONTROL TEST ASTHMA CONTROL TEST [facility] Start: 12-20-2016 End: 12-20-2016 Appointment Appointment [facility] Work Phone: Start: 2016 PEDS TO ADULT TRANSITION ANNUAL ASSESSMENT PEDS TO ADULT TRANSITION ANNUAL ASSESSMENT [facility] Start: 2014 PEDS TO ADULT TRANSITION INITIAL DISCUSSION PEDS TO ADULT TRANSITION INITIAL DISCUSSION [facility] Start: 2012 MENINGOCOCCAL B: Consider based on risk (1 of 2 - Risk Bexsero 2-dose series) MENINGOCOCCAL B: Consider based on risk (1 of 2 - Risk Bexsero 2-dose series) [facility] Start: 2008 PNEUMOCOCCAL (1 - PCV) PNEUMOCOCCAL (1 - PCV) [facility] ic Start: 2004 ASTHMA ACTION PLAN ASTHMA ACTION PLAN [facility] Start: 2002 COVID-19 VACCINE (#1) COVID-19 VACCINE (#1) [facility] Glucose [Mass/volume ] in Serum or Plasma GLUCOSE, BLOOD (POC) Lab Routine Urine ketone Ordered: 07/02/2022 [facility] Work Phone: Immunizations Immunization Date Immunization Notes Care Provider Fa cility 07-09-2018 meningococcal polysaccharide (groups A, C, Y and W-135) diphtheria toxoid conjugate vaccine (MCV4P) Jazzy Jaimesk DATE PULLER[facility] Work Phone: [facility] Work Phone: 12-19-2014 human papilloma viru s vaccine, quadrivalent Jazzy Yung DATE PULLER.[facility] Work Phone: [facility] Work Phone: 12-19-2014 meningococcal polysaccharide (groups A, C, Y and W-135) diphtheria toxoid conjugate vaccine (MCV4P) Jazzy Jaimesk DATE PULLER.[facility] Work Phone: [facility] Work Phone: 12-19-2014 varicella virus vaccine Bebo a Yung DATE PULLER.[facility] Work Phone: [facility] Work Phone: 01-03-2014 human papilloma viru s vaccine, quadrivalent Jazzyjennifer Jaimesk DATE PULLER.[facility] Work Phone: [facility] Work Phone: 01-03-2014 tetanus toxoid, redu mc diphtheria toxoid, and acellular pertussis vaccine, adsorbed Jazzy Yung DATE PULLER.[facility] Work Phone: [facility] Work Phone: 02-23-2009 influenza virus vacc ine, unspecified formulation Jazzyjennifer Barragan DATE PULLER.[facility] Work Phone: [facility] Work Phone: 12-14-2007 diphtheria, tetanus toxoids and acellular pertussis vaccine Jazzy Yung DATE PULLER.[facility] Work Phone: [facility] Work Phone: 12-14-2007 measles, mumps and rubella virus vaccine Jazzy Yung DATE PULLER[facility] Work Phone: [facility] Work Phone: 12-14-2007 poliovirus vaccine, inactivated Jazzyjennifer Barragan DATE PULLER.[facility] Work Phone: [facility] Work Phone: 03-13-2004 influenza virus vacc ine, unspecified formulation Jazzyjennifer Barragan DATE PULLER.PHARMACY HELPER Work Phone: [facility] Work Phone: 07-28-2003 diphtheria, tetanus toxoids and acellular pertussis vaccine Jazzy Yung DATE PULLER.PHARMACY HELPER Work Phone: [facility] Work Phone: 07-28-2003 haemophilus influenz ae type b vaccine, HbOC conjugate Jazzy Barragan DATE PULLER.PHARMACY HELPER Work Phone: [facility] Work Phone: 07-28-2003 varicella virus vaccine Bebo ronnie Barragan DATE PULLER.[facility] Work Phone: [facility] Work Phone: 04-28-2003 influenza virus vacc ine, unspecified formulation Jazzy Barragan DATE PULLER[facility] Work Phone: [facility] Work Phone: 04-28-2003 measles, mumps and rubella virus vaccine Jazzy Barragan DATE PULLER.PHARMACY HELPER Work Phone: [facility] Work Phone: 04-28-2003 pneumococcal conjuga te vaccine, 7 valent Jazzy Barragan DATE PULLER.[facility] Work Phone: [facility] Work Phone: 01-20-2003 hepatitis B vaccine, pediatric or pediatric/adolescent dosage Jazzy Barragan DATE PULLER.PHARMACY HELPER Work Phone: [facility] Work Phone: 01-20-2003 poliovirus vaccine, inactivated Jazzy Barragan DATE PULLER.PHARMACY HELPER Work Phone: [facility] Work Phone: 2002 diphtheria, tetanus toxoids and acellular pertussis vaccine Jazzy Barragan DATE PULLER.PHARMACY HELPER Work Phone: [facility] Work Phone: 2002 haemophilus influenz ae type b vaccine, HbOC conjugate Jazzy Barragan DATE PULLER.PHARMACY HELPER Work Phone: [facility] Work Phone: 2002 pneumococcal conjuga te vaccine, 7 valent Jazzy Yung DATE PULLER.[facility] Work Phone: [facility] Work Phone: 2002 diphtheria, tetanus toxoids and acellular pertussis vaccine Jazzy Yung DATE PULLER.[facility] Work Phone: [facility] Work Phone: 2002 haemophilus influenz ae type b vaccine, HbOC conjugate Jazzy Yung DATE PULLER.PHARMACY HELPER Work Phone: [facility] Work Phone: 2002 pneumococcal conjuga te vaccine, 7 valent Jazzy Yung DATE PULLER.[facility] Work Phone: [facility] Work Phone: 2002 poliovirus vaccine, inactivated Jazzy Yung DATE PULLER.[facility] Work Phone: [facility] Work Phone: 2002 diphtheria, tetanus toxoids and acellular pertussis vaccine Jazzy Yung DATE PULLER.[facility] Work Phone: [facility] Work Phone: 2002 haemophilus influenz ae type b vaccine, HbOC conjugate Jazzy Yung DATE PULLER.[facility] Work Phone: [facility] Work Phone: 2002 pneumococcal conjuga te vaccine, 7 valent Jazzy Yung DATE PULLER.PHARMACY HELPER Work Phone: [facility] Work Phone: 2002 poliovirus vaccine, inactivated Jazzy Yung DATE PULLER.[facility] Work Phone: [facility] Work Phone: 2002 hepatitis B vaccine, pediatric or pediatric/adolescent dosage Jazzy Yung DATE PULLER.PHARMACY HELPER Work Phone: [facility] Work Phone: 2002 hepatitis B vaccine, pediatric or pediatric/adolescent dosage Jazzy Yung DATE PULLER.PHARMACY HELPER Work Phone: [facility] Work Phone: Payers Date Payer Category Payer Unknown [employer] PPO [id number] 2021-Present [phone] [address] [place] [address] PPO [id number] 2021 Unknown [employer]UDIA NU[employer]EZE [employer] PPO [id number] 2021-Present [phone] [address] [place] [address] PPO [id number] 2021 Unknown [id number] Social History Date Type Detail Facility Start: 11-23-2021 End: 06-27-2022 Tobacco smoking status NHIS Smokes tobacco daily [facility] Start: 11-23-2021 End: 06-27-2022 Tobacco use and exposure Smokeless tobacco non-user [facility] Start: 11-23-2021 End: 07-02-2022 Alcohol intake Current non-drinker of alcohol (finding) [facility] Start: 11-23-2021 End: 06-27-2022 Tobacco Comment vaping [facility] Start: 2002 Sex Assigned At Not on file C [facility] Start: 11-13-2021 End: 11-23-2021 Exposure to SARS-CoV-2 (event) Not sure [facility] Work Phone: Clinical Notes 10-08-2012 to 07-02-2022 Lynette Alvarez MD - 07/02/2022 10:30 AM Bianca Beckham APRN.WES - 06/27/2022 10:24 AM Martha Barragan APRN.CNP - 11/23/2021 7:57 AM EDTPatient Instructions Note Date & Type Note Facility 07-02-2022 Note HNO ID: [id number] Author: Lynette Alvarez MD Service: ? Author Type: Physician Type: Progress Notes Filed: 07/10/2022 8:10 PM Note Text: Nandini Pinon is a 22-year-old female who presents to the office today with concerns of urinary ketones present when she was seen at the urgent care in [facility] on June 27, 2022. Presented to urgent care because of significant abdominal pain, headache and vomiting. Patient had just started her menstrual period. The patient has a strong history of dysmenorrhea. Currently seeing SENIOR PHP SOFTWARE DEVELOPER at [place] at [facility] ACTIVE PROBLEM LIST Other Atopic Dermatitis and [...] which included preparing to see the patient, [id number] patient care, completing clinical documentation, obtaining and/or reviewing separately obtained history, performing a medically appropriate examination, counseling and educating the patient/family/caregiver, and ordering medications, tests, or procedures. Follow-up 3 months Lynette Alvarez MD [facility] Department of Pediatrics, [facility] 07-02-2022 History of Presen t illness Narrative Nandini Pinon is a 22-year-old female who presents to the office today with concerns of urinary ketones present when she was seen at the urgent care in [place] ( [facility] ) on June 27, 2022. Presented to urgent care because of significant abdominal pain, headache and vomiting. Patient had just started her menstrual period. The patient has a strong history of dysmenorrhea. Currently seeing SENIOR PHP SOFTWARE DEVELOPER at [place] at [facility] ACTIVE PROBLEM LIST Other Atopic Dermatitis and [...] which included preparing to see the patient, [id number] patient care, completing clinical documentation, obtaining and/or reviewing separately obtained history, performing a medically appropriate examination, counseling and educating the patient/family/caregiver, and ordering medications, tests, or procedures. Follow-up 3 months Lynette Alvarez MD [facility] Department of Pediatrics, [facility] documented in this encounter [facility] 06-27-2022 Note HNO ID: [id number] Author: Randall Beckham APRN.PHARMACY HELPER Service: ? Author Type: Nurse Practitioner Type: [...] - UA DIP, URINE (POC) Randall Beckham APRN.PHARMACY HELPER [facility] 06-27-2022 History of Presen t illness [...] - UA DIP, URINE (POC) Randall Beckham APRN.PHARMACY HELPER documented in this encounter [facility] 11-23-2021 Note HNO ID: [id number] Author: Jazzy Barragan APRN.CNP Service: ? Author Type: Nurse Practitioner Type: Progress Notes Filed: 11/23/2021 8:16 AM Note Text: Subjective The history is provided by the patient. No hourly sign language interpreter was used. Nandini Pinon is a 21 [...] have confirmed and edited as necessary, the [facility] Review of Systems Constitutional: Negative [...] stomach - ICD9: 536.8, ICD10: K30 - [place] diet, hydrate - Does not appear to [...] detail warranting prompt ER evaluation. Jazzy Barragan APRN.[facility] 11-23-2021 History of Presen t illness Narrative Images from the original note were not included. Subjective The history is provided by the patient. No hourly sign language interpreter was used. Nandini Pinon is a 21 [...] have confirmed and edited as necessary, the [facility] Review of Systems Constitutional: Negative [...] stomach - ICD9: 536.8, ICD10: K30 - [place] diet, hydrate - Does not appear to [...] Jazzy Barragan APRN.CNP documented in this encounter [facility] 11-23-2021 Instructions Jazzy Barragan APRN.CNP - 11/23/2021 7:57 AM EDT Medrol dose pack as ordered Benadryl 25-50 mg at bedtime Zyrtec 10 mg By mouth daily Triamcinolone cream to arms and neck * Seek medical care immediately, call 911, go to ER if you have chest pain, difficulty breathing, shortness of breath, inability to swallow. documented in this encounter [facility] documented as of this encounter (statuses as of 11/23/2021) [facility]05-16-2013 History of Past illness Narrative* Problem Noted Date Resolved Date Tonsillar hypertrophy 10/08/2012 01/03/2014 documented as of this encounter (statuses as of 06/27/2022) [facility] History of Past illness Narrative* Problem Noted Date Resolved Date Tonsillar hypertrophy 10/08/2012 01/03/2014 documented as of this encounter (statuses as of 07/11/2022) [facility] Rash- Primary Rash and other nonspecific skin eruption Upset stomach Dyspepsia and other specified disorders of function of stomach [facility] Diagnosis Irregular menses- Primary Irregular menstrual cycle [facility] Diagnosis Urine ketone- Primary Acetonuria Acne vulgaris Other acne documented in this encounter [facility] Summary Purpose Family History No Family History Records FoundNo Family History Records FoundNo Family History Records Found Advance Directives No Advanced Directives Records FoundNo Advanced Directives Records FoundNo Advanced Directives Records Found Additional Source Comments INFORMATION SOURCE (unrecogn ized section and content) DATE CREATED AUTHOR AUTHOR'S ORGANIZ ATION 12/14/2019 [facility] DATE CREATED AUTHOR AUTHOR'S ORGANIZ ATION 07/12/2022 [facility] Source Comments (unrecognize d section and content) In the event this informatio n is protected by the Federal Confidentiality of Alcohol and Drug Abuse Patient Records regulations: The Federal rules restrict any use of the information to criminally investigate or prosecute any alcohol or drug abuse patient.[facility] the event this information is protected by the Federal Confidentiality of Alcohol and Drug Abuse Patient Records regulations: The Federal rules restrict any use of the information to criminally investigate or prosecute any alcohol or drug abuse patient.[facility] the event this information is protected by the Federal Confidentiality of Alcohol and Drug Abuse Patient Records regulations: The Federal rules restrict any use of the information to criminally investigate or prosecute any alcohol or drug abuse patient.[facility] Reason for Visit (unrecogniz ed section and content) Reason Comments Abdominal Pain RECINOS, vomiting x1 day Reason Comments Discussion Would like to have u rine rechecked due to ketone level Care Teams (unrecognized sec tion and content) Die Trouble Shooter Relationship Specialty Start Date End Date Lynette Alvarez MD [address] [place] [address] PCP - General 02 Die Trouble Shooter Relationship Specialty Start Date End Date Lynette Alvarez MD [address] [place], [place] [address] PCP - General 02 FOR RECORDS PERTAINING [...] BE BASED ON THE PRIMARY CLINICAL RECORDS. [facility]. provides no warranty or guarantee of the accuracy or completeness of information in this document.
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
[2023-07-26] MEDS: 0.9% Normal Saline (1000mL) 1,000 ML 1000 ML IV (14:04)
[2023-07-26] MEDS: Morphine 4 MG/ML Syringe IV (14:04)
[2023-07-26] MEDS: Ondansetron 4 MG/2 ML Vial IV (14:04)
[2023-07-26 14:13] LABS: Absolute Lymphocyte Count 1.77 X10^3/uL (0.83-4.51); Absolute Neutrophil Count 10.5 X10^3/uL (2.0-7.7); Basophil# 0.04 X10^3/uL; Basophil% 0.3 % (0-1); Eosinophil# 0.12 X10^3/uL; Eosinophils% 0.9 % (0-5); Hematocrit 44.6 % (37-47); Hemoglobin 14.8 g/dL (12.0-15.0); Lymphocyte # 1.77 X10^3/ul (0.83-4.51); Lymphocyte % 13.7 % (19-41); Mean Corp Hgb Conc 33.2 g/dL (32-36); Mean Corpuscular Hgb 28.6 pg (27.0-32.0); Mean Corpuscular Volume 86.1 fL (81-99); Mean Platelet Vol. 10.2 fl (6.2-12.0); Monocyte# 0.49 X10^3/uL; Monocyte% 3.8 % (0-10); NRBC Flagged by Analyzer 0 % (0-5); Neutrophil # 10.49 X10^3/uL (2.7-7.7); Neutrophil % 80.9 % (47-70); Platelet Count 342 K/mm3 (150-450); RBC Distribution Width CV 12.5 % (11.6-14.6); RBC Distribution Width SD 39.4 fl (35.1-43.9); Red Blood Count 5.18 M/mm3 (4.2-5.4)
[2023-07-26 14:24] LABS: Internal QC Validated? YES +Cl - CLEAR BKGD; Pregnancy, Serum, hCG Quali. NEGATIVE Negative
[2023-07-26 14:30] LABS: Anion Gap 4 (5-15); BUN 10 mg/dL (7-18); BUN/Creat Ratio 11.5 RATIO (10-20); Calcium,Total 9.6 mg/dL (8.5-10.1); Chloride 108 mmol/L (98-107); Creatinine, Serum 0.87 mg/dL (0.55-1.02); EST Glomerular Filtration Rate 87 mL/min (>60); Est Glom Filt Rate - Afr Amer 105 mL/min (>60); Estimated Creatinine Clearance 122.08 ml/min; Glucose 99 mg/dL (74-106); Potassium 4.1 mmol/L (3.5-5.1); Sodium Level 138 mmol/L (136-145)
[2023-07-26 14:59] LABS: Color, Urine Red (Yellow); Glucose, Dipstick Normal (Normal); Ketone-Dipstick 5 mg/dl (Negative); Leukocyte Esterase-Dipstick 500 /ul (Negative); Nitrite-Dipstick Negative (Negative); Occult Blood-Urine 250 /ul (Negative); Protein-Dipstick 100 mg/dl (Negative); Urine Bilirubin Dipstick Negative (Negative); Urine Clarity Cloudy (Clear); Urine Urobilinogen Normal (Normal)
--- NOTE | 2023-07-26 14:59 | CT_ITS ---
EXAM: CT ABDOMEN AND PELVIS WITH INTRAVENOUS CONTRAST CLINICAL INDICATION: Abdominal pain TECHNIQUE: Helically acquired images were obtained of the abdomen and pelvis with intravenous contrast. This CT exam was performed using one or more of the following dose reduction techniques: automated exposure control, adjustment of the mA and/or kV according to patient size, and/or use of iterative reconstruction technique. CONTRAST: IV 100mL Isovue-370 COMPARISON: No relevant prior studies available. FINDINGS: LOWER THORAX: Normal. Lung bases are clear. No cardiomegaly. No pericardial effusion. ABDOMEN: LIVER: Normal. Homogeneous. No focal mass. PANCREAS: Normal. No focal cystic or solid mass. SPLEEN: Normal. Normal size without focal cystic or solid mass. ADRENALS: Normal. No nodules. KIDNEYS AND URETERS: Normal. Normal renal size and position. No hydronephrosis. STOMACH AND BOWEL: Normal. No bowel distention. No focal inflammatory change. PELVIS: APPENDIX: Appendix is visualized and normal in appearance. BLADDER: Normal. REPRODUCTIVE: Unremarkable as visualized. No mass. ABDOMEN and PELVIS: INTRAPERITONEAL SPACE: Physiological amount of free fluid noted within the pelvis. No free air. BONES/JOINTS: No suspicious lytic or blastic abnormality. SOFT TISSUES: Normal. No discrete abdominal or pelvic wall hernia. VASCULATURE: Normal. Abdominal aorta is non-dilated. LYMPH NODES: Mildly prominent mesenteric lymph nodes noted consistent with reactive change. CT/Abdomen/Pelvis W IV Cont ONLY IMPRESSION: 1. Reactive mesenteric lymph nodes. 2. Physiological amount of free fluid within the cul-de-sac. 3. Otherwise unremarkable CT abdomen and pelvis. Electronically Signed: Matthew Avendano MD at 15:32 EST ,
[2023-07-26 15:12] LABS: Red Blood Cells-Urine 50-100 SEEN /hpf (0-5); Squamous Epithelial Cells - UA 0-5 SEEN /hpf (5-10); White Blood Cells 50-100 SEEN /hpf (0-5)
[2023-07-26 15:13] LABS: Bacteria 3+ /hpf (None Seen); Mucous, Urine RARE /hpf (<or=2+)
[2023-07-26] MEDS: Smz/Tmp Ds Tablet 1 TABLET PO (16:39)
[2023-07-26 16:44] VITALS: BP 113/80; PULSE 73; RESP 18; TEMP 36.6; O2SAT 99
== END 2023-07-26 16:48 | disposition home or self-care (01) ==
PROVIDERS: Emergency Provider Emergency Medicine; PCP Pediatrics; Visit Provider Emergency Medicine
DX: N39.0 Urinary tract infection, site not specified (principal); N94.6 Dysmenorrhea, unspecified; F17.290 Nicotine dependence, other tobacco product, uncomplicated; R51.9 Headache, unspecified; E66.9 Obesity, unspecified
CPT/HCPCS: 74177; 80048; 81001; 84703; 85025; 87086; 96361; 96374; 96375; 99283; J7030; Q9967; A4216; J2405

== ENCOUNTER 2023-12-13 11:19 | Emergency (ER) | payer BC, SELFPAY ==
[2023-12-13 11:20] VITALS: BP 134/88; PULSE 102; RESP 16; TEMP 36.3; O2SAT 99; BMI 34.5
--- NOTE | 2023-12-13 11:21 | EKG12_ITS ---
Test Reason : TRAUMA Blood Pressure : / mmHG Vent. Rate : 099 BPM Atrial Rate : 099 BPM P-R Int : 150 ms QRS Dur : 074 ms QT Int : 334 ms P-R-T Axes : 041 081 027 degrees QTc Int : 428 ms Normal sinus rhythm Normal ECG Confirmed by DOMINIQUE MARK MD ([id number]), editorial manager KIARA KANG ([id number]) on 12/15/2023 11:30:17 AM Referred By: Confirmed By:DOMINIQUE MARK MD
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
[2023-12-13] MEDS: Ondansetron 4 MG/2 ML Vial IV (11:35)
[2023-12-13] MEDS: fentaNYL 100 MCG/2 ML Ampul 25 MCG IV (11:35)
[2023-12-13 11:40] LABS: Absolute Lymphocyte Count 4.59 X10^3/uL (0.83-4.51); Absolute Neutrophil Count 10.3 X10^3/uL (2.0-7.7); Basophil# 0.06 X10^3/uL; Basophil% 0.4 % (0-1); Eosinophil# 0.09 X10^3/uL; Eosinophils% 0.6 % (0-5); Hemoglobin 13.9 g/dL (12.0-15.0); Lymphocyte # 4.59 X10^3/ul (0.83-4.51); Mean Corp Hgb Conc 33.9 g/dL (32-36); Mean Corpuscular Hgb 28.7 pg (27.0-32.0); Mean Corpuscular Volume 84.7 fL (81-99); Mean Platelet Vol. 10.6 fl (6.2-12.0); Monocyte# 0.76 X10^3/uL; Monocyte% 4.8 % (0-10); NRBC Flagged by Analyzer 0 % (0-5); Neutrophil # 10.27 X10^3/uL (2.7-7.7); Neutrophil % 64.7 % (47-70); Platelet Count 385 K/mm3 (150-450); RBC Distribution Width CV 12.2 % (11.6-14.6); RBC Distribution Width SD 37.2 fl (35.1-43.9); Red Blood Count 4.84 M/mm3 (4.2-5.4); White Blood Count 15.9 K/mm3 (4.4-11.0)
[2023-12-13] MEDS: 0.9% Normal Saline (1000mL) 1,000 ML 150 ML IV (11:45)
[2023-12-13 11:46] LABS: International Normalized Ratio 1.2; Partial Thromboplast Time 26.4 Seconds (24.1-36.2)
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
[2023-12-13 11:49] LABS: Internal QC Validated? YES +Cl - CLEAR BKGD; Pregnancy, Serum, hCG Quali. NEGATIVE Negative; Record Kit Lot#, Serum Preg. HCG0000772476
[2023-12-13 11:51] LABS: AST(SGOT) 16 U/L (15-37); Alanine Aminotransfer ALT/SGPT 23 U/L (13-56); Albumin, Serum 3.9 g/dL (3.2-5.0); Alkaline Phosphatase 53 U/L (45-117); Anion Gap 9 (5-15); BUN 11 mg/dL (7-18); BUN/Creat Ratio 10.6 RATIO (10-20); Bilirubin, Direct 0.19 mg/dL (0.00-0.30); Chloride 106 mmol/L (98-107); Creatinine, Serum 1.04 mg/dL (0.55-1.02); EST Glomerular Filtration Rate 71 mL/min (>60); Est Glom Filt Rate - Afr Amer 86 mL/min (>60); Estimated Creatinine Clearance 104.01 ml/min; Glucose 168 mg/dL (74-106); Potassium 3.6 mmol/L (3.5-5.1); Protein, Total 6.9 g/dL (6.4-8.2); Sodium Level 140 mmol/L (136-145)
[2023-12-13 12:13] VITALS: BP 119/76; PULSE 76; RESP 18; TEMP 36.3; O2SAT 98
[2023-12-13 12:19] VITALS: BP 119/76; PULSE 86; RESP 16; O2SAT 99
--- NOTE | 2023-12-13 12:24 | NURSING ---
report called to [facility]
== END 2023-12-13 12:24 | disposition short-term general hospital (02) ==
LOC: ED 11:48
PROVIDERS: Emergency Provider Emergency Medicine; Visit Provider Emergency Medicine
DX: S01.21XA Laceration without foreign body of nose, initial encounter (principal); S06.9X9A Unspecified intracranial injury with loss of consciousness of unspecified duration, initial encounter; F17.210 Nicotine dependence, cigarettes, uncomplicated; R10.9 Unspecified abdominal pain; V49.59XA Passenger injured in collision with other motor vehicles in traffic accident, initial encounter; F17.290 Nicotine dependence, other tobacco product, uncomplicated
CPT/HCPCS: 71045; 72040; 72170; 80048; 80076; 84703; 85025; 85610; 85730; 93005; 96361; 96374; 96375; 99284; A4216; J2405

== ENCOUNTER 2024-03-13 18:01 | Emergency (ER) | payer BC, SELFPAY ==
[2024-03-13 18:01] VITALS: BP 130/78; PULSE 107; RESP 16; TEMP 36.3; O2SAT 97; BMI 33.1
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
[2024-03-13 19:18] LABS: Absolute Lymphocyte Count 1.48 X10^3/uL (0.83-4.51); Absolute Neutrophil Count 11.4 X10^3/uL (2.0-7.7); Basophil# 0.02 X10^3/uL; Basophil% 0.1 % (0-1); Eosinophil# 0.02 X10^3/uL; Eosinophils% 0.1 % (0-5); Hematocrit 40.8 % (37-47); Hemoglobin 13.7 g/dL (12.0-15.0); Lymphocyte # 1.48 X10^3/ul (0.83-4.51); Mean Corp Hgb Conc 33.6 g/dL (32-36); Mean Corpuscular Hgb 28.3 pg (27.0-32.0); Mean Corpuscular Volume 84.3 fL (81-99); Mean Platelet Vol. 10.7 fl (6.2-12.0); Monocyte# 0.47 X10^3/uL; Monocyte% 3.5 % (0-10); NRBC Flagged by Analyzer 0 % (0-5); Neutrophil # 11.36 X10^3/uL (2.7-7.7); Neutrophil % 84.9 % (47-70); Platelet Count 335 K/mm3 (150-450); RBC Distribution Width CV 12.4 % (11.6-14.6); RBC Distribution Width SD 37.5 fl (35.1-43.9); Red Blood Count 4.84 M/mm3 (4.2-5.4); White Blood Count 13.4 K/mm3 (4.4-11.0)
[2024-03-13] MEDS: 0.9% Normal Saline (1000mL) 1,000 ML 1000 ML IV (19:29)
[2024-03-13] MEDS: Ondansetron 4 MG/2 ML Vial IV (19:30)
[2024-03-13 19:35] LABS: Anion Gap 7 (5-15); BUN 6 mg/dL (7-18); BUN/Creat Ratio 10.5 RATIO (10-20); Calcium,Total 9.7 mg/dL (8.5-10.1); Chloride 105 mmol/L (98-107); Creatinine, Serum 0.57 mg/dL (0.55-1.02); EST Glomerular Filtration Rate 140 mL/min (>60); Est Glom Filt Rate - Afr Amer 169 mL/min (>60); Estimated Creatinine Clearance 185.72 ml/min; Glucose 100 mg/dL (74-106); Potassium 3.9 mmol/L (3.5-5.1); Sodium Level 137 mmol/L (136-145)
[2024-03-13 19:37] LABS: Color, Urine Yellow (Yellow); Glucose, Dipstick Normal (Normal); Leukocyte Esterase-Dipstick 100 /ul (Negative); Nitrite-Dipstick Negative (Negative); Occult Blood-Urine Negative /ul (Negative); Protein-Dipstick 30 mg/dl (Negative); Urine Bilirubin Dipstick Negative (Negative); Urine Clarity Cloudy (Clear); Urine Urobilinogen Normal (Normal)
[2024-03-13 19:44] LABS: Ketone-Dipstick 150 mg/dl (Negative)
[2024-03-13 19:45] LABS: Bacteria 3+ /hpf (None Seen); Mucous, Urine 2+ /hpf (<or=2+); Squamous Epithelial Cells - UA 10-25 SEEN /hpf (5-10)
[2024-03-13 19:47] LABS: Red Blood Cells-Urine 0 SEEN /hpf (0-5); White Blood Cells 5-10 SEEN /hpf (0-5)
[2024-03-13 20:01] VITALS: BP 126/80; PULSE 76; RESP 18; TEMP 35.6; O2SAT 92
[2024-03-13] MEDS: proMETHazine 25 MG Tablet 12.5 MG PO (20:16)
== END 2024-03-13 21:30 | disposition home or self-care (01) ==
PROVIDERS: Emergency Provider Emergency Medicine; PCP Clinical Nurse Specialist Adult Health; Referring Provider Emergency Medicine; Visit Provider Emergency Medicine
DX: O21.0 Mild hyperemesis gravidarum (principal); Z3A.12 12 weeks gestation of pregnancy; Z87.891 Personal history of nicotine dependence
CPT/HCPCS: 80048; 81001; 85025; 96361; 96374; 99283; J7030; A4216; J2405

== ENCOUNTER 2024-09-27 15:53 | Outpatient (CLI) | payer BC, SELFPAY ==
[2024-09-27 16:09] VITALS: TEMP 36.6; O2SAT 99
[2024-09-27 16:14] VITALS: BMI 43.5
[2024-09-27 16:22] VITALS: BP 140/89; PULSE 101
[2024-09-27 16:37] VITALS: BP 144/91; PULSE 94
[2024-09-27 16:39] LABS: Hematocrit 35.5 % (37-47); Hemoglobin 12.2 g/dL (12.0-15.0); Mean Corp Hgb Conc 34.4 g/dL (32-36); Mean Corpuscular Hgb 28.2 pg (27.0-32.0); Mean Corpuscular Volume 82.2 fL (81-99); Mean Platelet Vol. 11.3 fl (6.2-12.0); Platelet Count 246 K/mm3 (150-450); RBC Distribution Width CV 13.8 % (11.6-14.6); RBC Distribution Width SD 40.7 fl (35.1-43.9); Red Blood Count 4.32 M/mm3 (4.2-5.4); White Blood Count 9.5 K/mm3 (4.4-11.0)
[2024-09-27 16:52] VITALS: BP 138/89; PULSE 90
[2024-09-27 17:06] LABS: AST(SGOT) 18 U/L (<=31); Alanine Aminotransfer ALT/SGPT 14 U/L (<=34); Creatinine, Serum 0.68 mg/dL (0.70-1.20); EST Glomerular Filtration Rate 126 (>60); Uric Acid 6.5 mg/dL (2.6-6.0)
[2024-09-27 17:07] VITALS: BP 139/80; PULSE 81
[2024-09-27 17:08] LABS: Protein, Urine (Random) 21.8 mg/dL (0.0-12.0); Protein:Creat Ratio 186 mg/g CRE (0-200)
[2024-09-27 17:23] VITALS: BP 154/92; PULSE 90
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
== END 2024-09-27 17:25 | disposition home or self-care (01) ==
LOC: WPOUT 15:54 → WP 15:55
PROVIDERS: PCP Clinical Nurse Specialist Adult Health; Referring Provider Obstetrics & Gynecology; Visit Provider Obstetrics & Gynecology
DX: O13.3 Gestational [pregnancy-induced] hypertension without significant proteinuria, third trimester (principal); Z87.891 Personal history of nicotine dependence; Z3A.39 39 weeks gestation of pregnancy
CPT/HCPCS: 59025; 59050; 82565; 82570; 84156; 84450; 84460; 84550; 85027; 99221; G0378

== ENCOUNTER 2024-09-28 19:21 | Inpatient (IN) | payer BC, SELFPAY ==
[2024-09-28] VITALS (11 sets, daily range): BP systolic 130–160; BP diastolic 66–95; PULSE 81–107; RESP 14–16; TEMP 36–36.3; O2SAT 94–98; BMI 43.1
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
[2024-09-28] MEDS: miSOPROStol 25 MCG TABLET PO (21:04)
[2024-09-28] MEDS: QUEtiapine 25 MG Tablet PO (21:04)
[2024-09-28 21:11] LABS: Absolute Lymphocyte Count 2.04 X10^3/uL (0.83-4.51); Absolute Neutrophil Count 8.7 X10^3/uL (2.0-7.7); Basophil# 0.02 X10^3/uL; Basophil% 0.2 % (0-1); Eosinophil# 0.04 X10^3/uL; Eosinophils% 0.4 % (0-5); Hematocrit 35.5 % (37-47); Hemoglobin 12.3 g/dL (12.0-15.0); Lymphocyte # 2.04 X10^3/ul (0.83-4.51); Lymphocyte % 17.9 % (19-41); Mean Corp Hgb Conc 34.6 g/dL (32-36); Mean Corpuscular Hgb 28.5 pg (27.0-32.0); Mean Corpuscular Volume 82.2 fL (81-99); Mean Platelet Vol. 11.8 fl (6.2-12.0); Monocyte# 0.54 X10^3/uL; Monocyte% 4.7 % (0-10); NRBC Flagged by Analyzer 0 % (0-5); Neutrophil # 8.73 X10^3/uL (2.7-7.7); Neutrophil % 76.4 % (47-70); Platelet Count 265 K/mm3 (150-450); RBC Distribution Width CV 13.8 % (11.6-14.6); RBC Distribution Width SD 40.6 fl (35.1-43.9); Red Blood Count 4.32 M/mm3 (4.2-5.4); White Blood Count 11.4 K/mm3 (4.4-11.0)
[2024-09-28 21:34] LABS: International Normalized Ratio 0.9; Partial Thromboplast Time 25.8 Seconds (24.1-36.2); Prothrombin Time (Protime)PT. 12.5 SECONDS (11.7-14.9)
[2024-09-28 21:36] LABS: Protein, Urine (Random) 46.8 mg/dL (0.0-12.0); Protein:Creat Ratio 200 mg/g CRE (0-200)
[2024-09-28 21:39] LABS: AST(SGOT) 19 U/L (<=31); Uric Acid 7.4 mg/dL (2.6-6.0)
[2024-09-28 21:48] LABS: Alanine Aminotransfer ALT/SGPT 15 U/L (<=34); Creatinine, Serum 0.71 mg/dL (0.70-1.20); EST Glomerular Filtration Rate 122 (>60); Estimated Creatinine Clearance 170.62 ml/min (50-250); Syphilis Antibodies Nonreactive (Nonreactive)
[2024-09-28 22:01] LABS: LDH 168 U/L (84-246)
[2024-09-29] VITALS (42 sets, daily range): BP systolic 105–164; BP diastolic 57–109; PULSE 75–134; RESP 14–20; TEMP 36.1–36.9; O2SAT 78–100
[2024-09-29] MEDS: miSOPROStol 25 MCG TABLET PO ×2 (01:22→05:29)
[2024-09-29] MEDS: 0.9% Normal Saline Single 100 ML IV.SOLN. INTRA-UTER (08:03)
--- NOTE | 2024-09-29 08:09 | PCM.PN.BLA ---
Progress Note Patient seen at bedside, resting comfortably. Transcervical Browne placed with 30 cc of normal saline. Patient tolerated well. Patient is fingertip/40/-4. Vertex was confirmed on ultrasound. Will allow the patient to eat a small meal and then start Pitocin at approximately 930
[2024-09-29] MEDS: Lactated Ringers 1,000 ML 50 ML IV (09:50)
[2024-09-29] MEDS: Oxytocin 15 Units/NS 250ml 15 UNITS/250 ML IV.SOLN 2 UNITS IV (09:50)
--- NOTE | 2024-09-29 13:34 | PCM.PN.BLA ---
Progress Note pt seen at bedside, IFM and IUPC placed. /-3. Clear fluid still noted. Continue pitocin. can have epidural when requested. FHR category 1.
[2024-09-29] MEDS: Lactated Ringers 1,000 ML 999 ML IV (14:10)
[2024-09-29] MEDS: fentaNYL-bupivacaine (epidural) 100 ML BAG EPIDURAL ×2 (14:58→19:40)
[2024-09-29] MEDS: Lactated Ringers 1,000 ML 200 ML IV (19:10)
[2024-09-29] MEDS: 0.9% Saline Lock 10 ML Syringe IV (21:05)
[2024-09-29] MEDS: Ondansetron 4 MG/2 ML Vial IV (21:33)
[2024-09-29] MEDS: QUEtiapine 25 MG Tablet PO (21:33)
[2024-09-29] MEDS: LACTATED RINGERS 500 ML 999 ML IV (23:15)
[2024-09-30] VITALS (26 sets, daily range): BP systolic 121–153; BP diastolic 65–109; PULSE 84–123; RESP 16–18; TEMP 36.5–37.1; O2SAT 95–100
[2024-09-30] MEDS: Lactated Ringers 1,000 ML 200 ML IV ×2 (00:35→06:07)
[2024-09-30] MEDS: fentaNYL-bupivacaine (epidural) 100 ML BAG EPIDURAL ×2 (00:35→05:33)
[2024-09-30] MEDS: LACTATED RINGERS 500 ML 999 ML IV (01:45)
[2024-09-30] MEDS: Amnioinfusion- 0.9% NS 1,000 ML IV.SOLN. 1000 ML INTRA-UTER (02:20)
[2024-09-30] MEDS: Mag Hydrox/Al Hydrox/Simeth 30 ML UDC PO (04:56)
--- NOTE | 2024-09-30 06:52 | PCM.PN.BLA ---
Progress Note Examined patient in room- comfortable with epidural. pushing effectively but head 0 station, caput +1. Discussed with patient has been pushing for 3 hrs at this time my recommendation is for CS. discussed with patient that minimal descent of head at this time after 3 hrs and continued pushing can make cs more difficult. pt is declining cs at this time and would like to continue pushing for at least next hour.
--- NOTE | 2024-09-30 08:18 | PCM.PN.BLA ---
Progress Note At bedside to evaluate the patient. She is reasonably tearful. Has pain with ctx's. Assessment & Plan Assessment/Plan (1) Encounter for induction of labor: PLAN: Baby remains at 0 station and no descent from prior exam. Patient desires to proceed with primary section for arrest of descent. Discussed r/b/a section and consent obtained. Pre op antibiotics ordered. (2) 39 weeks gestation of : (3) Gestational hypertension: QUALIFIERS: Trimester: third trimester Qualified Code(s): O13.3 - Gestational [-induced] hypertension without significant proteinuria, third trimester (4) Bipolar disorder: (5) Hx of herpes genitalis: (6) Hx of venereal warts:
[2024-09-30] MEDS: Sodium Citrate/Citric Acid 30 ML UDC PO (08:25)
[2024-09-30] MEDS: Acetaminophen 500 MG Tablet PO (08:25)
[2024-09-30] MEDS: Cefazolin 3 GM in 0.9% Normal Saline (100mL Bag) 100 ML IV (08:34)
[2024-09-30] MEDS: Azithromycin 500 MG in 0.9% Normal Saline (250mL Bag) 250 ML 255 MG IV (08:45)
[2024-09-30] MEDS: TRANEXAMIC ACID 1,000 MG in 0.9% Normal Saline (100mL Bag) 100 ML 440 MG IV (08:45)
--- NOTE | 2024-09-30 09:42 | OP.PCM_ITS ---
Problems Associated Problem List Diagnoses (1) Arrest of descent, delivered, current hospitalization: (2) Encounter for induction of labor: (3) Hx of venereal warts: (4) Hx of herpes genitalis: (5) Bipolar disorder: (6) Gestational hypertension: (7) 39 weeks gestation of : (8) Obesity affecting : Operative Report (Standard) Operative Information Date of Procedure: 09/30/24 Pre-Operative Diagnosis: 39 week gestation, gHTN, obesity, induction of labor, arrest of descent Post-Operative Diagnosis: As above, CPD Surgery/Procedure Performed: PLTCS via pfannenstiel incision application development liaison: Yes Water Treatment Plant Operator: Karlene Ambrose Tasks completed by assistant professor of surgery: Hemostasis: Electrocautery and Retracting Type of Anesthesia: Epidural Procedure Start Time: 08:49 Procedure Stop Time: 09:30 Select all DRAINS/GRAFTS/IMPLANTS that apply: None Special Medications: None Estimated Blood Loss: 1200 mL Fluids Replaced: See anesthesia record Specimen collected: No Description of surgery: The patient was taken to the operating room where epidural anesthesia was found to be adequate. She was prepped and draped in the dorsal supine position with a leftward tilt. A Pfannenstiel skin incision was made with a scalpel and carried down to the underlying layer of fascia. The fascia was incised in the midline. The fascial incision was extended laterally using Leo scissors. The fascia was elevated and dissected off the rectus muscle in a cephalad direction with sharp dissection. The rectus muscles were in the midline bluntly. The peritoneum was entered bluntly with good visualization of the bladder. The peritoneal incision was extended with lateral traction. An Jeevan retractor was inserted for good visualization. A low transverse incision was made on the uterus with a scalpel. The uterine incision was extended with cephalad and caudad traction. The head was elevated and flexed with assistance from a nursing hand from below vaginally. The head followed by the body of the infant was delivered without any excessive traction, force, or delay. A vigorous viable male was delivered and the cord was clamped and cut after a slight delay. The was handed off to the awaiting nursery staff. The placenta was removed with manual extraction. The uterus was cleared of all clot debris. The hysterotomy was closed with 1-0 Vicryl in a running locked fashion. 1 additional [id number] suture was placed at the left corner for hemostasis. Hemostasis was confirmed. Ana was placed over the hysterotomy. The subfascial space was inspected and noted to be hemostatic. The fascia was closed with STRATAFIX in a running fashion. The subcutaneous space was irrigated and made hemostatic with Bovie cautery. The subcutaneous space was reapproximated using 3-0 Vicryl. 4 Monocryl was used in a subcuticular fashion to close the skin. A silver dressing was placed. Instrument, sharp, sponge counts were correct and the patient was taken to the recovery in stable condition. Surgical Findings: VMI in cephalic presentation. Clear fluid. Apgars 7, 8. CPD with narrow pelvis. Normal appearing placenta, uterus and bilateral adnexa Complications Complications: No Admit VTE Documentation VTE Present on Admission: No VTE Mechan Device Prophylaxis: SCD's
[2024-09-30] MEDS: Oxytocin 15 Units/NS 250ml 15 UNITS/250 ML IV.SOLN 83 UNITS IV (09:59)
[2024-09-30] MEDS: Ketorolac 30 MG/ML Syringe IV ×3 (10:14→22:18)
[2024-09-30] MEDS: 0.9% Saline Lock 10 ML Syringe IV (10:14)
[2024-09-30] MEDS: Lactated Ringers 1,000 ML 100 ML IV (13:00)
[2024-09-30] MEDS: Acetaminophen 500 MG Tablet 1000 MG PO ×2 (14:30→20:41)
[2024-09-30] MEDS: Cefazolin 1 GM/50 ML BAG IV ×2 (14:30→23:15)
[2024-09-30] MEDS: Enoxaparin 40 MG/0.4 ML Syringe SC (20:41)
[2024-09-30] MEDS: QUEtiapine 25 MG Tablet PO (22:18)
[2024-10-01] MEDS: Acetaminophen 500 MG Tablet 1000 MG PO ×4 (02:47→20:52)
[2024-10-01 03:05] VITALS: BP 115/76; PULSE 97; RESP 16; TEMP 36.6; O2SAT 98
[2024-10-01] MEDS: 0.9% Saline Lock 10 ML Syringe IV (04:18)
[2024-10-01] MEDS: Ketorolac 30 MG/ML Syringe IV (04:18)
[2024-10-01 05:00] VITALS: PULSE 90; RESP 16
[2024-10-01 06:11] LABS: Hematocrit 27.6 % (37-47); Hemoglobin 9.5 g/dL (12.0-15.0); Mean Corp Hgb Conc 34.4 g/dL (32-36); Mean Corpuscular Volume 84.1 fL (81-99); Mean Platelet Vol. 11.8 fl (6.2-12.0); Platelet Count 201 K/mm3 (150-450); RBC Distribution Width CV 14.3 % (11.6-14.6); RBC Distribution Width SD 43.7 fl (35.1-43.9); Red Blood Count 3.28 M/mm3 (4.2-5.4); White Blood Count 18.6 K/mm3 (4.4-11.0)
[2024-10-01 07:00] VITALS: PULSE 84; RESP 16; O2SAT 100
[2024-10-01 07:40] VITALS: BP 132/89; BP 136/77; PULSE 90; RESP 16; TEMP 36.4; O2SAT 100; O2SAT 99
--- NOTE | 2024-10-01 08:54 | PCM.PN.OB ---
Subjective Subjective Doing well per patient and nursing staff. Ambulating and taking PO without difficulty. Browne out this morning Voiding and passing flatus. Pain controlled. , services for assistance. Denies headache, visual changes, chest pain, shortness of breath, leg pain or increased bleeding. Lochia normal. Objective Data Objective Data Vital Signs: Vital Signs Temp Pulse Resp BP Pulse Ox O2 Del Method 97.6 F L 90 16 132/89 H 99 Room Air 10/01/24 07:40 10/01/24 07:40 10/01/24 07:40 10/01/24 07:40 10/01/24 07:40 10/01/24 07:40 Oxygen Delivery Method Room Air Weight: 275 lb 9.245 oz Body Mass Index (BMI) 43.1 Intake & Output: Intake and Output for Last 24 Hours 09/29/24 09/30/24 10/01/24 23:59 23:59 23:59 Intake Total 3053.24 / 3053.24 4293.06 / 4293.06 1000 / 1000 Output Total 2450 / 2450 2450 / 2450 700 / 700 Balance 603.24 / 603.24 1843.06 / 1843.06 300 / 300 Lab / Micro Data 10/01/24 05:45 09/28/24 20:55 Labs: Laboratory Results - last 24 hr 10/01/24 05:45: WBC 18.6 H, RBC 3.28 L, Hgb 9.5 L, Hct 27.6 L, MCV 84.1, MCH 29.0, MCHC 34.4, RDW Std Deviation 43.7, RDW Coeff of Jerel 14.3, Plt Count 201, MPV 11.8 ROS Constitutional Constitutional: Reports systems reviewed and no addt'l complaints, except as documented; Denies headache(s) Eyes Eyes: Denies acute decrease in peripheral vision, blurry vision or change in vision ENT HEENT: Reports systems reviewed and no addt'l complaints, except as documented Cardiovascular Cardiovascular: Denies chest pain or dizziness Respiratory/Chest Respiratory/Chest: Denies cough, dyspnea, dyspnea on exertion, shortness of breath at rest or shortness of breath with exertion Gastrointestinal Gastrointestinal: Denies abdominal pain, diarrhea, nausea or vomiting Genitourinary Genitourinary: Denies abdominal discomfort Musculoskeletal Musculoskeletal: Denies limited range of motion Integumentary Integumentary: Reports systems reviewed and no addt'l complaints, except as documented Neurologic Neurologic: Reports systems reviewed and no addt'l complaints, except as documented Psychiatric Psychiatric: Reports systems reviewed and no addt'l complaints, except as documented Endocrine Endocrinology: Reports systems reviewed and no addt'l complaints, except as documented Hematologic/Lymphatic Hematologic/Lymphatic: Reports systems reviewed and no addt'l complaints, except as documented Allergic/Immunologic Allergic/Immunologic: Reports systems reviewed and no addt'l complaints, except as documented Physical Exam Const alert and oriented x3 General Appearance: cooperative Orientation / Consciousness: awake, oriented to person, oriented to place and oriented to time Exam Limitations: no limitations HEENT normocephalic Head and Scalp: normal to inspection, normocephalic and atraumatic Face and Sinus: normal facial exam Eyes General Eye: normal appearance of both eyes Neck full ROM Chest Chest: symmetrical chest wall rise Resp normal respiratory effort and normal air movement Auscultation: clear to auscultation bilaterally Cardio regular rate, regular rhythm, S1 normal heart sound, S2 normal heart sound, no murmurs, no rub, no gallops and no clicks GI normal to inspection, nondistended, normoactive bowel sounds and non-tender GI Narrative: dressing dry and intact. Fundus firm 2 below U appearance of the vagina normal Bladder / Kidney Exam: no CVA tenderness Back/Spine normal ROM Extremity normal to inspection and full ROM Skin no rashes or lesions noted Neuro oriented x3, CN's II-XII intact bilaterally and moves all extremities Sensorium / Orientation: awake, alert and oriented to person Motor Exam: clonus absent Deep Tendon Reflexes: Rt Patellar (L4): 2+ and Lt Patellar (L4): 2+ Assessment & Plan (1) Arrest of descent, delivered, current hospitalization: (2) S/P primary low transverse : (3) Lactating mother: PLAN: Plan 1) Routine POD#1 LTCS 2) Vitals stable 3) I&O 4) Pain management 5) services PRN 6) Planning D/C home tomorrow
[2024-10-01] MEDS: SimETHICONE 80 MG Chewable Tablet PO ×2 (09:30→16:36)
[2024-10-01] MEDS: Enoxaparin 40 MG/0.4 ML Syringe SC ×2 (10:14→20:52)
[2024-10-01] MEDS: Ibuprofen 600 MG Tablet PO ×3 (10:14→21:54)
[2024-10-01] MEDS: Senna/Docusate Sodium 1 Tablet PO (10:14)
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
[2024-10-01 15:00] VITALS: BP 136/77; PULSE 96; RESP 16; TEMP 36.5; O2SAT 100
[2024-10-01 20:47] VITALS: BP 132/89; PULSE 99; RESP 18; TEMP 36.7; O2SAT 98
[2024-10-01] MEDS: QUEtiapine 25 MG Tablet PO (21:54)
[2024-10-02 01:37] VITALS: BP 128/86; PULSE 73; RESP 18; TEMP 36.2; O2SAT 99
[2024-10-02] MEDS: Ibuprofen 600 MG Tablet PO ×4 (03:31→23:44)
[2024-10-02] MEDS: Acetaminophen 500 MG Tablet 1000 MG PO ×4 (03:33→21:46)
--- NOTE | 2024-10-02 08:20 | PCM.PN.CNM ---
Subjective Subjective Patient seen at bedside. Denies headache, vision changes, SOB or CP. Ambulating and voiding without difficulty. Passing flatus. Lochia decreased. Dressing dry and intact. Objective Data Objective Data Vital Signs: Vital Signs Temp Pulse Resp BP Pulse Ox O2 Del Method 97.2 F L 73 18 128/86 H 99 Room Air 10/02/24 01:37 10/02/24 01:37 10/02/24 01:37 10/02/24 01:37 10/02/24 01:37 10/02/24 01:37 Oxygen Delivery Method Room Air Weight: 275 lb 9.245 oz Body Mass Index (BMI) 43.1 Intake & Output: Intake and Output for Last 24 Hours 09/30/24 10/01/24 10/02/24 23:59 23:59 23:59 Intake Total 4293.06 / 4293.06 1000 / 1000 Output Total 2450 / 2450 1550 / 1550 Balance 1843.06 / 1843.06 -550 / -550 Lab / Micro Data Attestation: I reviewed the patient's lab results. 10/01/24 05:45 09/28/24 20:55 ROS Eyes Eyes: Denies blurry vision, spots in vision or tunnel vision ENT HEENT: Denies dizziness or headache(s) Cardiovascular Cardiovascular: Reports systems reviewed and no addt'l complaints, except as documented, dizziness and dyspnea Respiratory/Chest Respiratory/Chest: Reports systems reviewed and no addt'l complaints, except as documented Gastrointestinal Gastrointestinal: Reports systems reviewed and no addt'l complaints, except as documented Genitourinary Genitourinary: Reports systems reviewed and no addt'l complaints, except as documented Neurologic Neurologic: Denies abnormal speech, dizziness, headache(s), syncope or vertigo Psychiatric Psychiatric: Reports systems reviewed and no addt'l complaints, except as documented Physical Exam Const alert and no apparent distress General Appearance: cooperative Orientation / Consciousness: awake, oriented to person and oriented to place Exam Limitations: no limitations HEENT normocephalic Eyes General Eye: normal appearance of both eyes Neck full ROM Chest Chest: symmetrical chest wall rise Resp normal respiratory effort, normal air movement and clear to auscultation bilaterally Auscultation: clear to auscultation bilaterally Cardio regular rate and regular rhythm GI normal to inspection, nondistended, normoactive bowel sounds Uterus Palpation: uterus fundus firm Extremity full ROM and no calf tenderness Skin no rashes or lesions noted Neuro oriented x3 Psych mental status grossly normal and activity/motor behavior normal Assessment & Plan (1) Lactating mother: (2) S/P primary low transverse : (3) Obesity affecting : (4) Gestational hypertension: QUALIFIERS: Trimester: third trimester Qualified Code(s): O13.3 - Gestational [-induced] hypertension without significant proteinuria, third trimester (5) Anxiety: (6) Bipolar disorder: (7) Post-operative pain: (8) Anemia due to blood loss: PLAN: Plan POD 2 Primary C/S Pain control Increase ambulation HGB 9.5 down from 12.3- Start Ferrous Sulfate 325 PO BID Blood pressures stable at 120-130's/80's- no severe ranges Assisted patient with putting post operative binder on support Anticipate D/C home tomorrow
[2024-10-02 08:56] VITALS: BP 142/83; PULSE 92; RESP 16; TEMP 36.3; O2SAT 98
[2024-10-02] MEDS: Enoxaparin 40 MG/0.4 ML Syringe SC (09:49)
[2024-10-02] MEDS: Senna/Docusate Sodium 1 Tablet PO (10:28)
[2024-10-02] MEDS: Ferrous Sulfate 325 MG Tablet PO ×2 (13:14→18:19)
[2024-10-02 14:54] VITALS: BP 139/88; PULSE 96; RESP 14; TEMP 36.6; O2SAT 97
[2024-10-02 19:56] VITALS: BP 134/85; PULSE 97; RESP 16; TEMP 36.4; O2SAT 100
[2024-10-02] MEDS: QUEtiapine 25 MG Tablet PO (21:46)
[2024-10-03 02:15] VITALS: BP 139/85; PULSE 87; RESP 16; TEMP 36.5; O2SAT 100
[2024-10-03] MEDS: Acetaminophen 500 MG Tablet 1000 MG PO ×2 (03:28→09:52)
[2024-10-03] MEDS: Ibuprofen 600 MG Tablet PO (05:23)
--- NOTE | 2024-10-03 07:49 | PCM.DC.SUM ---
Providers Date of Admission: 09/28/24 Primary Care Physician: SARA Cordova Reason For Visit: PRIMARY Diagnosis Discharge Diagnosis (1) Lactating mother: Status: Acute Code(s): Z39.1 - Encounter for care and examination of lactating mother (2) S/P primary low transverse : Status: Acute Code(s): Z98.891 - History of uterine scar from previous surgery (3) Obesity affecting : Status: Acute Code(s): O99.210 - Obesity complicating , unspecified trimester (4) Gestational hypertension: Status: Acute Code(s): O13.9 - Gestational [-induced] hypertension without significant proteinuria, unspecified trimester Qualifiers: Trimester: third trimester Qualified Code(s): O13.3 - Gestational [-induced] hypertension without significant proteinuria, third trimester (5) Anxiety: Status: Acute Code(s): F41.9 - Anxiety disorder, unspecified (6) Bipolar disorder: Status: Acute Code(s): F31.9 - Bipolar disorder, unspecified (7) Post-operative pain: Status: Acute Code(s): G89.18 - Other acute postprocedural pain (8) Anemia due to blood loss: Status: 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) Plan POD 3 Primary C/S Pain control Increase ambulation HGB 9.5 down from 12.3- Start Ferrous Sulfate 325 PO BID Blood pressures stable at 120-130's/80's- no severe ranges D/C home with follow up this week in office Medications at Discharge Home Medications vit with calcium-iron fum-folic acid 27 mg-1 mg tablet 1 tab PO DAILY 03/13/24 quetiapine 25 mg tablet 25 mg PO QHS see doc 03/13/24 pantoprazole 20 mg tablet,delayed release 20 mg PO DAILY see doc 09/28/24 acetaminophen 500 mg tablet 1,000 mg (2 x 500 mg) PO Q6H #0 tabs 10/03/24 ferrous sulfate 325 mg (65 mg iron) tablet (FeroSul) 325 mg PO 1200,1700 #0 tabs 10/03/24 ibuprofen 600 mg tablet 600 mg PO Q6H #0 tabs 10/03/24 sennosides 8.6 mg-docusate sodium 50 mg tablet (Stimulant Laxative Plus) 1 - 2 tab PO DAILY #0 tabs 10/03/24 Hospital Course Operations section Procedures None Summary of Care Provided Minutes Spent on Discharge: 15 Hospital Course: Patient had section. Hospital course was uneventful. Physical Exam Narrative Dressing is dry and intact. Patient denies any headache, vision changes, SOB, or CP. Desires discharge home. Const alert and no apparent distress General Appearance: cooperative and comfortable Exam Limitations: no limitations HEENT normocephalic Eyes General Eye: normal appearance of both eyes Neck full ROM General: normal visual inspection Chest Chest: symmetrical chest wall rise Resp normal respiratory effort and normal air movement Effort and Inspection: symmetric chest movement Auscultation: clear to auscultation bilaterally Cardio regular rate and regular rhythm GI normal to inspection, nondistended, normoactive bowel sounds Back/Spine normal ROM Extremity full ROM and no calf tenderness General Extremity: normal exam except as noted Skin no rashes or lesions noted Wound Narrative: Dressing is dry and intact. Neuro CN's II-XII intact bilaterally Psych mental status grossly normal Weight / BMI Weight Weight: 275 lb 9.245 oz Body Mass Index (BMI) 43.1 ABG / Lab / Microbiology Data 10/01/24 05:45 09/28/24 20:55 D/C Instructions Discharge Diet: No restrictions Discharge Activity: May Drive (2 weeks) and May Shower May resume sexual activity in: 6-8 weeks Weight Bearing Status: Weight bearing as tolerated Lifting Restricted to (Lbs): 25 Call your doctor if your incision/area has: Continuous Slow Oozing, Sudden Increased Bleeding, Increased Pain/ Swelling, Increased Redness, Foul Smelling Discharge and Swelling at the incision site Call your doctor if you observe: Fever of 101 or Higher, Numbness or Tingling, Using more than 1 pad per hour, Shortness of breath, Dizziness, Swelling in the ankles, Chest pain, Calf discomfort and Uncontrolled pain Suture Line Care: Avoid Pulling/Pushing Remove Dressing in: 5 days (Remove yourself or call office and schedule appointment for dressing removal.) DC O2, CPAP, BIPAP Needs Home O2 Discharge instructions: No When: 5 days for dressing removal or 2 weeks for post appointment. Meaningful Use Info Meaningful Use Meaningful Use Diagnoses (Choose all that apply): None applicable Ischemic Stroke Statin Dosing Therapy Reference: STATIN DOSE THERAPY REFERENCE: * Patients > 75 years receive moderate or high dose statin therapy. * Patients 75 years or YOUNGER should receive HIGH intensity statin dose unless contraindicated. You will be required to document reason for non-treatment if statin daily dose does not meet guidelines. HIGH DOSE STATIN THERAPY DAILY Atorvastatin > than or = to 40 mg Rosuvastatin > than or = to 20 mg Amlodipine + Atorvastatin > than or = to 2.5/40 mg Ezetimibe + Simvastatin 10/80 mg Simvastatin 80mg Discharge Plan Admission Admit Date/Time: 09/28/24 19:21 Primary Reason for Your Visit: Labor and Delivery Attending Provider: Ginger Zurita Primary Care Provider: Jolanta Cerna Discharge Orders/Prescriptions Prescriptions: New sennosides-docusate sodium [Stimulant Laxative Plus] 8.6-50 mg Tablet 1 - 2 tab PO DAILY Qty: 0 0RF ferrous sulfate [FeroSul] 325 mg (65 mg iron) Tablet 325 mg PO 1200,1700 Qty: 0 0RF ibuprofen 600 mg Tablet 600 mg PO Q6H Qty: 0 0RF acetaminophen 500 mg Tablet 1,000 mg PO Q6H Qty: 0 0RF Continued pantoprazole 20 mg tablet,delayed release (DR/EC) 20 mg PO DAILY quetiapine 25 mg tablet 25 mg PO QHS vit-iron fum-folic ac 27-1 mg tablet 1 tab PO DAILY Discontinued aspirin 81 mg tablet,delayed release (DR/EC) 81 mg PO DAILY Referrals / Follow Up: Jolanta Cerna, AEROBICS TEACHER [Primary Care Provider] - Disposition Disposition (needs filled in before D/C Order can be placed): Home, Self Care
[2024-10-03 08:46] VITALS: BP 138/92; PULSE 95; RESP 16; TEMP 36.3; O2SAT 98
== END 2024-10-03 10:05 | disposition home or self-care (01) | DRG 788 ==
PROVIDERS: Admitting Provider Advanced Practice Midwife; PCP Clinical Nurse Specialist Adult Health; Referring Provider Advanced Practice Midwife; Visit Provider Obstetrics & Gynecology
DX: O13.4 Gestational [pregnancy-induced] hypertension without significant proteinuria, complicating childbirth (principal); O99.214 Obesity complicating childbirth; D50.0 Iron deficiency anemia secondary to blood loss (chronic); F31.9 Bipolar disorder, unspecified; F41.9 Anxiety disorder, unspecified; O99.344 Other mental disorders complicating childbirth; O64.8XX0 Obstructed labor due to other malposition and malpresentation, not applicable or unspecified; O90.81 Anemia of the puerperium; O99.03 Anemia complicating the puerperium; Z37.0 Single live birth; Z79.82 Long term (current) use of aspirin; Z3A.39 39 weeks gestation of pregnancy; Z86.19 Personal history of other infectious and parasitic diseases; Z79.899 Other long term (current) drug therapy; Z87.891 Personal history of nicotine dependence
CPT/HCPCS: 59025; 59050; 82565; 82570; 83615; 84156; 84450; 84460; 84550; 85025; 85027; 85610; 85730; 86780; 86850; 86900; 86901; 99221; A4216; G0378; J2405

== ENCOUNTER 2025-01-10 10:33 | Emergency (ER) | payer BC, SELFPAY ==
[2025-01-10] VITALS (7 sets, daily range): BP systolic 121–135; BP diastolic 66–81; PULSE 70–85; RESP 13–20; TEMP 36.7; O2SAT 96–100; BMI 40.1
--- NOTE | 2025-01-10 10:47 | ED.RN ---
Pt having numbness and tingling to all extremities and both sides of face. Had thyroid taken out Friday and has been taking the calcium like she was told.
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
--- NOTE | 2025-01-10 12:06 | EKG12_ITS ---
Test Reason : ABNORMAL LAB-CALCIUM Blood Pressure : */* mmHG Vent. Rate : 74 BPM Atrial Rate : 74 BPM P-R Int : 152 ms QRS Dur : 70 ms QT Int : 392 ms P-R-T Axes : 20 62 51 degrees QTcB Int : 435 ms Normal sinus rhythm Normal ECG When compared with ECG of 13-Dec-2023 11:28, No significant change was found Confirmed by JAS JARAMILLO, DOMINIQUE ([id number]), news videotape editor MANJINDER GUSMAN ([id number]) on 01/13/2025 6:31:44 AM Referred By: Confirmed By: DOMINIQUE MARK MD
[2025-01-10 12:08] LABS: Anion Gap 15 (5-15); BUN 13 mg/dL (4-19); BUN/Creat Ratio 17.2 RATIO (10-20); Carbon Dioxide 24.9 mmol/L (21.0-32.0); Chloride 102 mmol/L (98-108); Estimated Creatinine Clearance 149.09 ml/min (50-250); Glucose 103 mg/dL (70-99); Potassium 4.3 mmol/L (3.3-5.1)
[2025-01-10] MEDS: 0.9% Normal Saline (1000mL) 1,000 ML 999 ML IV (12:12)
[2025-01-10 12:30] LABS: Hematocrit 39.2 % (37-47); Hemoglobin 13.3 g/dL (12.0-15.0); Immature Granulocytes Count 0.030 X10^3/uL (0.0-0.0); Mean Corp Hgb Conc 33.9 g/dL (32-36); Mean Corpuscular Volume 82.4 fL (81-99); Mean Platelet Vol. 10.5 fl (6.2-12.0); NRBC Flagged by Analyzer 0 % (0-5); Platelet Count 277 K/mm3 (150-450); RBC Distribution Width CV 13.0 % (11.6-14.6); RBC Distribution Width SD 39.2 fl (35.1-43.9); Red Blood Count 4.76 M/mm3 (4.2-5.4); White Blood Count 8.8 K/mm3 (4.4-11.0)
[2025-01-10] MEDS: Calcium Gluconate IV 1 GM in 0.9% Normal Saline (100mL Bag) 100 ML IV ×2 (12:46→14:09)
[2025-01-10 13:03] LABS: Magnesium 1.8 mg/dL (1.5-2.2)
[2025-01-10 13:21] LABS: Ionized Calcium Order 0.8
--- NOTE | 2025-01-10 18:38 | NURSING ---
1430- IBCLC consulted to speak with patient about . Pt. has concerns that BF is causing her low calcium levels. Education given that and pumping are likely not the cause of today's event, especially given that pt recently had major surgery (as reported by pt had thyroid and some lymph nodes removed due to cancer)-- but that pt would need to discuss that more with her physician. Pt. reports she has been continuing to take her vitamin, and that since her surgery has been combination feeding her child, giving formula/pumped breast milk in addition to latch. Pt. asking for a breast pump, so items collected from [facility] and brought up to pt, but pt reports she is getting discharged and no longer needs a pump. Encouragement and support given. IBCLC informed pt. she can call into if any questions or concerns arise.
[2025-01-11 00:50] LABS: Calcium,Total 6.3 mg/dL (7.6-11.0)
== END 2025-01-10 15:59 | disposition home or self-care (01) ==
PROVIDERS: Emergency Provider Emergency Medicine; PCP Clinical Nurse Specialist Adult Health; Visit Provider Emergency Medicine
DX: E83.51 Hypocalcemia (principal); C73 Malignant neoplasm of thyroid gland; Z90.09 Acquired absence of other part of head and neck; Z79.890 Hormone replacement therapy; Z87.891 Personal history of nicotine dependence
CPT/HCPCS: 80048; 82330; 83735; 85025; 93005; 96365; 96366; 99283; A4216; J0612

== ENCOUNTER 2025-01-12 16:46 | Inpatient (IN) | payer BC, SELFPAY ==
[2025-01-12 16:47] VITALS: BP 139/102; PULSE 95; RESP 18; TEMP 36.2; O2SAT 99; BMI 39.1
--- NOTE | 2025-01-12 16:58 | EDS_ITS ---
HPI History of Present Illness Chief Complaint: Abn Labs Detail of Chief Complaint: Concern for low calcium Informant: patient Narrative Narrative: Patient presents the emergency department complaint of cramping today. Complains of cramping in her hands and tingling in her face. She had similar episode 3 days ago and was seen in the emergency department and had a low calcium. Patient states that she had her thyroid removed last week. She is currently on calcium that she takes every 3 hours. She denies nausea or vomiting. Denies fever. PFSH PFSH Medical History (Updated 01/12/25 @ 20:[address] Cristhian Liriano, DO) Lactating mother Asthma Thyroid disorder Gestational hypertension Bipolar disorder Hx of herpes genitalis Hx of venereal warts Hx of chlamydia infection Chronic neck and back pain Home Medications ?Medication ?Instructions ?Recorded ?Last Taken ?Type vit with calcium-iron 1 tab PO DAILY pregnanc y 03/13/24 01/09/25 History fum-folic acid 27 mg-1 mg tablet quetiapine 25 mg tablet 25 mg PO QHS see doc 4 01/09/25 History acetaminophen 500 mg tablet 1,000 mg (2 x 500 mg) PO Q 6H #0 10/03/24 Unknown Rx tabs ibuprofen 600 mg tablet 600 mg PO Q6H #0 tabs Unknown Rx calcitriol 0.25 mcg capsule 0.25 mcg PO BID #14 caps 0 01/10/25 Unknown Rx levothyroxine 125 mcg tablet 125 mcg PO DAILY 01/10/25 01/10/25 History Allergy/AdvReac Type Severity Reaction Status Date / Time No Known Allergies Allergy Verified 01/12/25 16:47 Family History (Updated 01/12/25 @ 20:[address] Paula Aparicio MD) Grandmother Breast cancer Uncle Diabetes Mother Thyroid disorder Father Thyroid disorder Heart disease PAF (paroxysmal atrial fibrillation) Surgical History H/O thyroidectomy S/P primary low transverse Hx of tonsillectomy Social History (Updated 01/12/25 @ 20:[address] Paula Aparicio MD) household members: significant other and children Smoking Status: Current some day smoker tobacco type: cigarettes and e- cigarettes Electronic Cigarette Use: with nicotine alcohol intake: never substance use type: does not use what type of physical activity do you participate in: weight training frequency: 3-4 times per week ROS ROS ED Review of Systems ROS Unobtainable: other Constitutional Constitutional ED: Reports lethargy; Denies chills, fever(s), sweats or weight loss Eyes Eyes: Denies blurry vision, change in vision or diplopia ENT ENT ED: Denies rhinorrhea or sore throat Cardiovascular Cardiovascular: Denies chest pain, orthopnea or racing heartbeat Respiratory/Chest Respiratory/Chest: Denies cough, dyspnea, dyspnea on exertion, orthopnea or sputum Gastrointestinal Gastrointestinal: Denies abdominal pain, diarrhea, nausea or vomiting Genitourinary Genitourinary ED: Denies dysuria, hematuria or urinary frequency Musculoskeletal Musculoskeletal: Reports other Details: Cramping in hands ; Denies arthralgias, back pain, myalgias or neck pain Integumentary Denies abscess, Abrasions or rash Neurologic Neurologic: Reports paresthesias; Denies headache(s) or weakness Psychiatric Psychiatric: Denies anxiety, depression or suicidal thoughts Endocrine Endocrinology: Denies polydipsia, polyphagia or polyuria Hematologic/Lymphatic Hematologic/Lymphatic: Denies easy bleeding, easy bruising or lymphadenopathy Allergic/Immunologic Allergic/Immunologic ED: Denies mouth swelling, tongue swelling or urticaria EXAM Physical Exam Const Vital Signs: 01/12/25 16:47 01/12/25 19:07 01/12/25 19:50 Temperature 97.1 F L 98 F Temperature Source Temporal Pulse Rate 95 72 75 Respiratory Rate 18 18 17 Blood Pressure 139/102 H 150/82 H 104/68 Blood Pressure Mean 114 104 80 Pulse Ox 99 99 99 Oxygen Delivery Method Room Air Positive well nourished and well developed General Appearance ED: well developed and NAD HEENT Reports TM's clear and moist mucous membranes normocephalic and atraumatic; Negative for trauma or tenderness Tympanic Membrane ED: Yes TM's clear Eyes PERRL and EOMs intact bilaterally General Eye ED: Negative for pale conjunctiva or scleral icterus Neck no lymphadenopathy, supple and no JVD General: Negative for tenderness Chest Wall inspection of chest normal and palpation of chest normal Chest: Negative for tenderness Resp normal respiratory effort and clear to auscultation bilaterally Effort and Inspection: Negative for respiratory distress or pain with movement Auscultation: Negative for rhonchi, wheezes or diminished lung sounds Cardio regular rate, regular rhythm, S1 normal heart sound, S2 normal heart sound and no murmurs Peripheral Pulses: pulses 2+ throughout GI normal to inspection, nondistended, normoactive bowel sounds, soft to palpation, non-tender, non-distended and no masses Back/Spine no CVA tenderness and no thoracic nor lumbar tenderness Extremity Extremity Narrative: Fingers extended in both hands. Positive show post General Extremety ED: Negative for edema General Extremity: Negative for edema Neuro oriented x3, CN's II-XII intact bilaterally, no sensory deficits noted and gait normal Sensorium / Orientation: awake, alert, oriented to person, oriented to place and oriented to time Motor Exam: strength 5/5 throughout and strength abnormal Psych mental status grossly normal Skin no rashes or lesions noted and no wounds MDM MDM MDM Narrative Medical decision making narrative: Patient presents with cramping in both hands with concern for hypocalcemia. She had recent thyroid surgery. She has been taking calcium every 3 hours at home. Recent visit for same. IV line established. She was given calcium gluconate 1 g. CBC with differential obtained showed white count 9.4 with hemoglobin 13 and platelet count of 307. Chemistries unremarkable. Calcium was low at 6.0. She was given a second gram of calcium gluconate. Symptoms did improve. Discussed case with hospitalist will evaluate patient for admission for hypocalcemia for further management Lab Data Attestation: I reviewed the patient's lab results. Labs: Laboratory Results - last 24 hr 01/12/25 17:19 WBC 9.4 RBC 4.87 Hgb 13.4 Hct 39.5 MCV 81.1 MCH 27.5 MCHC 33.9 RDW Std Deviation 37.8 RDW Coeff of Jerel 12.8 Plt Count 307 MPV 10.3 Immature Gran % (Auto) 0.300 Neut % (Auto) 67.4 Lymph % (Auto) 25.3 [place] % (Auto) 5.5 Eos % (Auto) 1.1 Baso % (Auto) 0.4 Absolute Neuts (auto) 6.3 Absolute Lymphs (auto) 2.38 Nucleated RBC % 0 Sodium 140 Potassium 3.8 Chloride 99 Carbon Dioxide 23.1 Anion Gap 17 H BUN 10 Creatinine 0.78 Estim Creat Clear Calc 147.02 Est GFR (MDRD) Non-Af 110 BUN/Creatinine Ratio 12.2 Glucose 96 Calcium 6.0 L* Discharge Plan Triage Chief Complaint: Abn Labs ED Provider: Cristhian Liriano Dx/Rx/DC Orders Clinical Impression: Hypocalcemia Prescriptions: No Action ibuprofen 600 mg Tablet 600 mg PO Q6H Qty: 0 0RF acetaminophen 500 mg Tablet 1,000 mg PO Q6H Qty: 0 0RF levothyroxine 125 mcg tablet 125 mcg PO DAILY calcitriol 0.25 mcg capsule 0.25 mcg PO BID Qty: 14 0RF quetiapine 25 mg tablet 25 mg PO QHS vit-iron fum-folic ac 27-1 mg tablet 1 tab PO DAILY Primary Care Provider: Jolanta Cerna Referrals: Jolanta Cerna, ELECTRONIC HEALTH RECORDS SPECIALIST [Primary Care Provider] - Print Language: Georgian Disposition Disposition: Acute Care Hospital [facility]
[2025-01-12 17:27] LABS: Hematocrit 39.5 % (37-47); Hemoglobin 13.4 g/dL (12.0-15.0); Immature Granulocytes Count 0.030 X10^3/uL (0.0-0.0); Mean Corp Hgb Conc 33.9 g/dL (32-36); Mean Corpuscular Volume 81.1 fL (81-99); Mean Platelet Vol. 10.3 fl (6.2-12.0); NRBC Flagged by Analyzer 0 % (0-5); Platelet Count 307 K/mm3 (150-450); RBC Distribution Width CV 12.8 % (11.6-14.6); RBC Distribution Width SD 37.8 fl (35.1-43.9); Red Blood Count 4.87 M/mm3 (4.2-5.4); White Blood Count 9.4 K/mm3 (4.4-11.0)
[2025-01-12 18:30] LABS: Anion Gap 17 (5-15); BUN 10 mg/dL (4-19); BUN/Creat Ratio 12.2 RATIO (10-20); Carbon Dioxide 23.1 mmol/L (21.0-32.0); Chloride 99 mmol/L (98-108); Estimated Creatinine Clearance 147.02 ml/min (50-250); Glucose 96 mg/dL (70-99); Potassium 3.8 mmol/L (3.3-5.1)
[2025-01-12 19:07] VITALS: BP 150/82; PULSE 72; RESP 18; O2SAT 99
--- NOTE | 2025-01-12 19:32 | PCM.HP.STD ---
HPI - General General Date of Admission: 01/12/25 Date of Service: 01/12/25 Chief Complaint: Muscle cramping, paresthesias HPI Narrative The patient is a 24 y/o F w/ PMHx: Anxiety and Depression/Bipolar disorder, Occasional E-Tobacco cigarette usage, Chronic Asthma, diagnosis approximate 1 year prior with papillary thyroid carcinoma status post recent complete thyroidectomy with resulting hypothyroidism who presents to the [facility] ED on 01/12/2025 with history of muscle cramping and tingling in her hands as well as her face with a similar episode 3 days previous seen in the emergency room with a low calcium at that time with recent thyroidectomy the week prior currently on calcium supplementation that she is taking every 3 hours with no other significant symptoms but given persistence prompted return to the ED for repeat evaluation. Patient denies any palpitations or chest pain or hoarse voice. Patient reports surgery at a [facility] facility [facility] however she does live locally in [place]. Her surgeon is also [facility] she notes with [facility]. Workup in the ED included T97.1, heart rate 95, BP 139/102, respiratory rate 18, 99% on room air with most recent repeat vitals heart rate 72, BP 150/82, respiratory rate 18, 99% on room air, CBC with WC 9.4, Heenan 13.4, platelets 307 without marked shift, BMP with calcium 6.0 otherwise unremarkable. In the ED patient administered calcium gluconate 1 g IV x 2. PFSH Medical History (Updated 01/12/25 @ 20:[address] Cristhian Liriano, DO) Lactating mother Asthma Thyroid disorder Gestational hypertension Bipolar disorder Hx of herpes genitalis Hx of venereal warts Hx of chlamydia infection Chronic neck and back pain Home Medications ?Medication ?Instructions ?Recorded ?Last Taken ?Type vit with calcium-iron 1 tab PO DAILY 03/13/24 01/09/25 History fum-folic acid 27 mg-1 mg tablet quetiapine 25 mg tablet 25 mg PO QHS see doc 03/13/24 01/09/25 History acetaminophen 500 mg tablet 1,000 mg (2 x 500 mg) PO Q6H #0 10/03/24 Unknown Rx tabs ibuprofen 600 mg tablet 600 mg PO Q6H #0 tabs 10/03/24 Unknown Rx calcitriol 0.25 mcg capsule 0.25 mcg PO BID #14 caps 01/10/25 Unknown Rx levothyroxine 125 mcg tablet 125 mcg PO DAILY 01/10/25 01/10/25 History Allergy/AdvReac Type Severity Reaction Status Date / Time No Known Allergies Allergy Verified 01/12/25 16:47 Family History (Updated 01/12/25 @ 20:[address] Paula Aparicio MD) Grandmother Breast cancer Uncle Diabetes Mother Thyroid disorder Father Thyroid disorder Heart disease PAF (paroxysmal atrial fibrillation) Surgical History H/O thyroidectomy S/P primary low transverse Hx of tonsillectomy Social History (Updated 01/12/25 @ 20:[address] Paula Aparicio MD) household members: significant other and children Smoking Status: Current some day smoker tobacco type: cigarettes and e-cigarettes Electronic Cigarette Use: with nicotine alcohol intake: never substance use type: does not use what type of physical activity do you participate in: weight training frequency: 3-4 times per week ROS ROS Narrative Admission Review of Systems: CONSTITUTIONAL: No weight loss, fever, chills, + weakness or fatigue. HEENT: Eyes: No visual loss, blurred vision, double vision or yellow sclerae. Ears, Nose, Throat: No hearing loss, sneezing, congestion, runny nose or sore throat. SKIN: No rash or itching, lesions, wounds except occasional stage ecchymoses, abrasion, status post total thyroidectomy with incision in place, well-appearing with no drainage. CARDIOVASCULAR: No chest pain, chest pressure or chest discomfort, palpitations, edema, orthopnea, syncopal events. RESPIRATORY: No shortness of breath, cough or sputum, wheezing, hemoptysis. GASTROINTESTINAL: No anorexia, nausea, vomiting or diarrhea, abdominal pain, melena, BRBPR. GENITOURINARY: No dysuria, frequency, urgency or retention. NEUROLOGICAL: + Muscle spasms, paresthesias. No headache, dizziness, syncope, paralysis, ataxia, focal weakness, change in bowel or bladder control, seizure. MUSCULOSKELETAL: + muscle, back pain, joint pain or stiffness. HEMATOLOGIC: + History of anemia of , no recent noted significant bleeding or bruising issues. LYMPHATICS: No enlarged nodes. No history of splenectomy. PSYCHIATRIC: + History of anxiety and depression. ENDOCRINOLOGIC: No reports of sweating, cold or heat intolerance. No polyuria or polydipsia. ALLERGIES: + History of asthma. Vital Signs Vital Signs Vital Signs: 01/12/25 16:47 01/12/25 19:07 Temperature 97.1 F L Temperature Source Temporal Pulse Rate 95 72 Respiratory Rate 18 18 Blood Pressure 139/102 H 150/82 H Blood Pressure Mean 114 104 Pulse Ox 99 99 Oxygen Delivery Method Room Air Weight Weight: 250 lb Body Mass Index (BMI) 39.1 Physical Exam Narrative Physical Examination: General: Awake, alert, oriented x 3 and cooperative, seated upright in the ED bed, fatigued, notes feeling somewhat improved since initial ED arrival status post IV calcium administration in the ED. Skin: Normal color, normal turgor, no icterus, no cyanosis except occasional stage ecchymoses, abrasion, status post total thyroidectomy with incision intact, well-appearing, no drainage. HEENT: AT/NC, EOMI, PERRLA, MMM, no carotid bruits or JVD noted, see skin, + chvostek's sign with palpation of the facial nerve with muscle spasm/twitching of the facial muscles. Lungs: CTA bilaterally, moderate effort, mild decrease BL bases, no rales, ronchi or wheezing. Heart: Regular rate and rhythm; no gallop, rub audible. Abdomen: Soft, obese, NTTP, ND, mildly hyperactive BS, no appreciated HSM. Extremities: No cyanosis, no clubbing, bilateral ankle not markedly pitting edema. Neurological: Patient awake, alert, oriented as noted, cognitive function intact; pupils equally reactive to light and accommodation, cranial nerves grossly normal, moving all 4 extremities, no focal deficits, strength mildly global decreased, reporting paresthesias, able to induce tetany as noted above. Psychiatric: Affect appears fatigued otherwise normal, no acute evidence of depressive or anxiety feelings but does have underlying history. Results Lab / Micro Data 01/12/25 17:19 01/12/25 17:19 Labs: Laboratory Results - last 24 hr 01/12/25 17:19: WBC 9.4, RBC 4.87, Hgb 13.4, Hct 39.5, MCV 81.1, MCH 27.5, MCHC 33.9, RDW Std Deviation 37.8, RDW Coeff of Jerel 12.8, Plt Count 307, MPV 10.3, Immature Gran % (Auto) 0.300, Neut % (Auto) 67.4, Lymph % (Auto) 25.3, Campbell % (Auto) 5.5, Eos % (Auto) 1.1, Baso % (Auto) 0.4, Absolute Neuts (auto) 6.3, Absolute Lymphs (auto) 2.38, Nucleated RBC % 0, Sodium 140, Potassium 3.8, Chloride 99, Carbon Dioxide 23.1, Anion Gap 17 H, BUN 10, Creatinine 0.78, Estim Creat Clear Calc 147.02, Est GFR (MDRD) Non-Af 110, BUN/Creatinine Ratio 12.2, Glucose 96, Calcium 6.0 L* Assessment & Plan Assessment/Plan (1) Hypocalcemia: PLAN: Plan The patient is a 24 y/o F w/ PMHx: Anxiety and Depression/Bipolar disorder, Occasional E-Tobacco cigarette usage, Chronic Asthma, diagnosis approximate 1 year prior with papillary thyroid carcinoma status post recent complete thyroidectomy with resulting hypothyroidism who presents to the [facility] ED on 01/12/2025 with history of muscle cramping and tingling in her hands as well as her face with a similar episode 3 days previous seen in the emergency room with a low calcium at that time with recent thyroidectomy the week prior currently on calcium supplementation that she is taking every 3 hours with no other significant symptoms but given persistence prompted return to the ED for repeat evaluation. #1. Acute Hypocalcemia secondary to presumed hypoparathyroidism status post recent thyroidectomy secondary to underlying papillary thyroid carcinoma with associated hypothyroidism: Will admit to PCU, will maintain on telemetry monitoring, admission calcium 6.0, calcium gluconate total of 2 g IV administered in the ED, will obtain ionized calcium, obtain vitamin D level (25-(OH)D, 1,25-(OH)2D), PTH, Mag, Phos, will discuss with pharmacy and given already dosed with 2 g IV in the ED will attempt slower infusion with 11 g of calcium gluconate and a 1 L D5W versus normal saline to be ran at 50 mL/h, will continue serial BMP every 4 hours assessments for reassessment for supplementation. From current list patient does not appear to be on vitamin D but attempting to clarify, will initiate vitamin D 1, 25 with 50,000 unit with x 1 dose now pending levels as noted given presumed hypoparathyroidism. Encourage strongly contact with her surgeon to update on current symptomatology and early follow-up following discharge. #2. Elevated BP without hypertensive diagnosis: Elevated BP upon ED arrival, potentially related with acute presentation #1, will continue to monitor and add regimen if appropriate, as needed IV hydralazine in the interim. From review records patient does have a history of gestational hypertension. #3. Chronic asthma: Per current list does not appear to be on chronic regimen, will have as needed albuterol, encourage head of bed and I-S. #4. Anxiety and depression/bipolar disorder: Clarifying regimen but appears to only be on low-dose Seroquel, encourage continued follow-up outpatient as previously arranged. #5. Former cigarette tobacco use-nicotine vaping>: Encouraged nicotine tobacco vaping cessation, RT consultation, NR if desired. #6. DVT prophylaxis: Lovenox. Charges/Coding Visit Charges Inpatient E&M: 92511 Init Hosp L3
[2025-01-12 19:50] VITALS: BP 104/68; PULSE 75; RESP 17; TEMP 36.6; O2SAT 99
--- OUTSIDE RECORDS SUMMARY | 2025-01-12 20:39 | XMS RPT_ITS | CCD ---
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 01-10-2025 Platelet mean volume (Bld) [Entitic vol] 10.5 fL 6.2-12.0 [facility] Monocyte percentageOrdered B y: Lalitha Orr on 01-10-2025 Monocytes/100 WBC (Bld) 6.6 % 0-10 [facility] Neutrophil percentageOrdered By: Lalitha Orr on 01-10-2025 Neutrophils/100 WBC (Bld) 68.1 % 47-70 [facility] Nucleated red blood cell per centageOrdered By: Lalitha Orr on 01-10-2025 Nucleated RBC/100 WBC (Bld) [Ratio] 0 % 0-5 [facility] Platelet countOrdered By: Daren Orr on 01-10-2025 Platelets (Bld) [#/Vol] 277 10*3/uL 150-450 [facility] Potassium measurement (mass/ volume)Ordered By: Lalitha Orr on 01-10-2025 Potassium (Unsp spec) [Mass/Vol] 4.3 mmol/L 3.3-5.1 [facility] RBC Auto (Bld) [#/Vol]Ordere d By: Lalitha Orr on 01-10-2025 RBC (Bld) [#/Vol] 4.76 10*6/uL 4.2-5.4 [facility] Serum creatinine measurement (mass/volume)Ordered By: Lalitha Orr on 01-10-2025 Creatinine [Mass/Vol] 0.78 mg/dL 0.70-1.20 [facility] Serum glucose measurement (m ass/volume)Ordered By: Lalitha Orr on 01-10-2025 Glucose [Mass/Vol] 103 mg/dL High 70-99 [facility] Serum or plasma calcium michael urement (mass/volume)Ordered By: Lalitha Orr on 01-10-2025 Calcium [Mass/Vol] 6.3 mg/dL Low 7.6-11.0 [facility] Comment on above: Critical Result(s) C alled to: Magdaleno LAMB (ER) by: Jenifer Results read back by same. Critical Result(s) Called at: by: Results read back by same.Previous reported result: 6.3 mg/dLEdited by: AUTOINTrevor on 01/10/25:1230 AMENDED REPORT 01/10/25 1230 CA previously reported as: 6.3 *L mg/dL Critical Result(s) Called to: Magdaleno LAMB (ER) by: Jenifer Results read back by same. Serum or plasma urea nitroge n measurement (mass/volume)Ordered By: Lalitha Orr on 01-10-2025 Urea nitrogen [Mass/Vol] 13 mg/dL 4-19 [facility] Sodium levelOrdered By: Cleve Orr on 01-10-2025 Sodium [Moles/Vol] 142 mmol/L 133-145 [facility] White blood cell (WBC) count Ordered By: Lalitha Orr on 01-10-2025 WBC (Bld) [#/Vol] 8.8 10*3/uL 4.4-11.0 [facility] Calcium SerPl-mCncon 025 Calcium [Mass/Vol] 8.6 mg/dL Normal 8.5-10.2 [facility] Comment on above: Order Comment: Speceliana baez Type: BLOOD SPECIMEN [facility]ing Facility[facility] Address: [address] [place] [address] Performed By: #### 1 7861-6 #### [facility] CLIA [id number] [address] [place] [address] [place] PTH-Intact SerPl-mCncon 12-24 Parathyrin.intact [Mass/Vol] 8 pg/mL Low 15-65 [facility] Comment on above: Order Comment: Speceliana baez Type: BLOOD SPECIMEN Ordering Facility: [facility] Address: [address] [place] [address] Performed By: #### 2 731-8 #### [facility] [id number] [address] [place] [address] [place] ANES POSTPROC EVALon 025 ANES POSTPROC EVAL HNO ID: [id number] Author: SANJAY KILLIAN MD Service: Anesthesiology Author Type: Anesthesiologist Type: Anesthesia Postprocedure Evaluation Filed: 01/07/2025 13:45 Note Text: POST ANESTHESIA EVALUATION NOTE : 2002 Procedure Summary Date: 01/07/25 Room / Location: [place] [address] / OR Anesthesia Start: 750 Anesthesia Stop: 1116 Procedures: THYROIDECTOMY TOTAL (Bilateral: Thyroid) EXCISION NODE CERVICAL (Left: Neck) Diagnosis: Papillary thyroid carcinoma (HCC) (Papillary thyroid carcinoma (HCC) [C73]) Surgeons: Juan Hanna MD Responsible Provider: Sanjay Killian MD Anesthesia Type: general ASA Status: 2 Anesthesia Type: general Airway Type: ETT Last Vitals Vitals Value Taken Time BP 126/66 01/07/25 13:12 Temp 36.8 ?C (98.2 ?F) 01/07/25 13:12 Pulse 108 01/07/25 13:12 Resp 14 01/07/25 13:12 SpO2 96 % 01/07/25 13:12 Post Anesthesia Patient Status Patient Evaluation: PACU. PACU/ICU Patient Condition: stable. Anticipated Disposition: inpatient floor planned admission. Neurological Status: aware and responsive. Pulmonary Status: breathing comfortably on room air Airway Control: returned to baseline unsupported. Cardiovascular Status: stable. Pain Management: clinically adequate - multimodal analgesia pain management approach Postoperative Hydration: acceptable. Intraoperative Events: no significant anesthesia events Recommendation: continue current plan of care. Anesthesia Observations No Documentation SIGNATURE: Sanjay Killian MD PATIENT NAME: Nandini Lewis DATE: January 07, 2025 TIME: 1:45 PM CSN: [id number] [facility] ANES PRE-OPon 01-07-2025 ANES PRE-OP HNO ID: [id number] Author: SANJAY KILLIAN MD Service: Anesthesiology Author Type: Anesthesiologist Type: Anesthesia Preprocedure Evaluation Filed: 01/07/2025 06:46 Note Text: ANESTHESIOLOGY DAY OF SURGERY NOTE : 2002 Procedure Information Date/Time: 01/07/25 0730 Procedures: THYROIDECTOMY TOTAL (Bilateral: Thyroid) EXCISION NODE CERVICAL (Left: Neck) Location: MM OR05 / MM OR Surgeons: Juan Hanna MD Estimated body mass index is 39.94 kg/m? as calculated from the following: Height as of 12/28/24: 170.2 cm (5' 7). Weight as of 12/28/24: 115.7 kg (255 lb). Most recent hematocrit and potassium results: Hematocrit 39.7 12/27/2024 Potassium 4.3 12/27/2024 Relevant Problems CARDIO (+) Migraine NEURO-PSYCH (+) Migraine PULMONARY (+) Asthma (HCC) (+) Mild intermittent asthma (HCC) I - PHYSICAL EVALUATION AIRWAY Patient intubated: No. Tracheostomy tube not present Mallampati: II. TM distance: >3 FB. Neck ROM: full ROM without neurological symptoms. Mouth opening: adequate. Short neck: yes. Thick neck: yes DENTAL Dental findings: teeth intact. Additional exam findings: yes. CARDIOVASCULAR Rhythm: regular PULMONARY Breath sounds clear to auscultation. II - ANESTHESIA PLAN ASA Score: 2 Anesthetic Plan: general Airway type: ETT NPO Status: adequate Beta Edna Monitoring Plan Monitoring plan: Standard ASA. Post Procedure Analgesic Plan Postoperative analgesic plan: parenteral or oral opioids and multimodal analgesia. Informed Consent Anesthetic risks, benefits, alternatives, personnel and consent discussed: yes. Patient / Responsible Democrat agrees to proceed: yes Patient / Surrogate agrees to blood products: yes DNR status not reviewed with patient and/or family prior to surgery. Significant changes in the patient condition since the History and Physical, not otherwise documented in primary service progress note: no. Potential Anesthesia issues that may suggest increased risk of complications or contraindication to planned procedure: none. Discussed the possibility of lip / dental damage: yes No vitals data found for the desired time range. No current facility-administered medications on file as of . Outpatient Medications as of Medication Sig QUEtiapine (SEROQUEL) 25 mg tablet Take 1 tablet by mouth daily at bedtime. Oeftqfdo-Vd-Fnb-Fe-FA tab Take 1 tablet by mouth once daily. I have interviewed and examined the patient. I have reviewed the medical record and/or the pre-anesthesia evaluation, pertinent labs, and test results. This contains updated information obtained within 48 hours of Surgery/Procedure. SIGNATURE: Sanjay Killian MD PATIENT NAME: Nandini Lewis DATE: January 07, 2025 TIME: 6:45 AM CSN: [id number] [facility] OPERATIVE NOon 01-07-2025 OPERATIVE NO HNO ID: [id number] Author: JUAN HANNA MD Service: Endocrine Surgery Author Type: Physician Type: Operative Report Filed: 01/07/2025 11:00 Note Text: [facility] OPERATIVE REPORT ATTENDING PHYSICIAN: Juan Hanna MD Nandini Lewis [facility] DATE OF PROCEDURE: January 07, 2025 SURGEON: Juan Hanna MD FUEL BUYER: Sarai Velazquez MD PREOPERATIVE DIAGNOSIS: papillary thyroid carcinoma POSTOPERATIVE DIAGNOSIS: papillary thyroid carcinoma; level central compartment lymph node metastases OPERATION: total thyroidectomy; left central neck dissection intraoperative ultrasonography ANESTHESIA: General. Incision/Procedure Start Time: 8:30 AM Incision Close/Procedure End Time: 10:55 AM COMPLICATIONS: None. ESTIMATED BLOOD LOSS: 5 cc. SPECIMENS REMOVED: ID Type Source Tests Collected by Time Destination A : central neck Tissue Lymph Node (Specify Site in Comments) SURGICAL PATHOLOGY Juan Hanna MD 01/07/2025 8:49 AM B : left central neck contents Tissue Soft Tissue (Not otherwise specified) SURGICAL PATHOLOGY Juan Hanna MD 01/07/2025 9:33 AM C : Tissue Thyroid, Total, Thyroidectomy SURGICAL PATHOLOGY Juan Hanna MD 01/07/2025 10:28 AM HISTORY: Nandini Lewis has papillary thyroid carcinoma and is being taken to the operating room for left thyroid lobectomy, possible total thyroidectomy, and possible left central neck dissection. FINDINGS: An ultrasound was performed in the operating room and the images archived. The right thyroid lobe was normal in size and did not contain any worrisome findings. Within the left thyroid lobe was a hypoechoic nodule with irregular borders and microcalcifications that measured approximately 1.7 x 1.4 x 1.6 cm. In the left central neck was a hypoechoic structure that measured approximately 0.6 x 0.5 x 0.6 cm that was suggestive in appearance for pathologic level lymph node. No additional worrisome lymphadenopathy was appreciated in either jugular chain. At exploration, a left central neck lymph node was identified, excised, and sent for frozen section examination. Ultimately, the pathology report revealed metastatic papillary thyroid carcinoma. Therefore, a total thyroidectomy and left central neck dissection was performed. All four of the parathyroid glands were identified and preserved. Both recurrent laryngeal nerves were identified in the tracheoesophageal groove and preserved in the entirety of their courses. DESCRIPTION OF OPERATION: The patient was taken to the operating room, placed upon table in the supine position. After induction of general endotracheal anesthesia, a beanbag support was used to elevate the thoracic spine. The neck was gently hyperextended. Ultrasound evaluation was performed using an AlFastr Alpha 6 ultrasound machine with high-frequency linear array small parts transducer. The findings were as noted above. The neck was sterilely prepped and draped. A 4.5 cm transverse incision was made over the level of the thyroid isthmus and carried down through the platysma. Small superior and inferior subplatysmal flaps were raised with Bovie electrocautery. The strap muscles were divided longitudinally in midline of the neck. Removal of the thyroid began on the left side of the neck. The strap muscles were from one another, and then the anterior surface of the thyroid gland. A left central neck lymph node was identified, excised, and sent for frozen section examination. Ultimately, the pathology report revealed metastatic papillary thyroid carcinoma. Therefore, a total thyroidectomy and left central neck dissection was performed. The superior pole attachments were carefully dissected and divided with a combination of Harmonic scalpel and suture ligature. Next, the lower pole attachments were dissected and divided in a similar manner. The lower parathyroid gland was readily visualized and normal. This was preserved on its [place]ag vascular pedicle. The left thyroid lobe was then medially rotated and partially exteriorized. This allowed for visualization of the upper parathyroid gland, which was normal, and located in the normal anatomic position. It was preserved on its [place] vascular pedicle. With careful dissection, the recurrent laryngeal nerve was identified. The nerve was of medium caliber. The remaining medial attachments of the thyroid lobe to the central neck and ligaments of Rubio were then divided with continual visual confirmation that recurrent laryngeal nerve was intact and preserved and that the upper parathyroid gland remained attached to its [place] pedicle. The remaining areolar attachments to the anterior trachea were then cauterized. Next, the left central neck dissection was performed. The left recurrent laryngeal nerve was skeletonized, with careful pre (more content not included)... [facility] ([id number]) 4 F Date Time Provider Department 01/03/25 JASMYNE WHITNEY During your visit today, we recorded the following information about you: Homa Mcdermott RN 01/03/2025 10:55 AM Signed Written order received from [employer]; however, breast pump order already signed and faxed to [employer]. Homa Mcdermott RN Allergies As of Date: 01/03/2025 Noted Allergy Reaction SEASONAL ALLERGIES 08/01/2009 3 - Cough 5 - Intolerance 9 - Itching Date Reviewed: 12/28/2024 Reviewed by: Briana Byrnes APRN.SMASH PIECER - Fully Assessed Prescriptions as of 01/03/2025 - FENUGREEK SEED PO Take by mouth. - QUEtiapine (SEROQUEL) 25 mg tablet Take 1 tablet by mouth daily at bedtime. - Ibwfrymm-Ul-Taf-Fe-FA tab Take 1 tablet by mouth once daily. Problem List As Of Date 01/03/2025 Noted Resolved Other atopic dermatitis and related conditions *08/13/2005 08/02/2024 Mild intermittent asthma [J45.20] 10/08/2012 Tonsillar hypertrophy [J35.1] 10/08/2012 01/03/2014 Migraine without aura and without status migrai*12/19/2017 03/18/2024 Trauma complication, early, initial encounter [*12/13/2023 10/05/2024 Papillary thyroid carcinoma (HCC) [C73] 02/19/2024 Obesity affecting in first trimester *02/19/2024 10/05/2024 Bipolar 2 disorder (HCC) [F31.81] 02/19/2024 Anxiety [F41.9] 02/19/2024 Thyroid nodule [E04.1] 02/19/2024 Encounter for supervision of high risk pregnanc*02/19/2024 10/05/2024 Heartburn during [O26.899, R12] 02/19/2024 Pyelectasis of fetus on ultrasound (HC*06/18/2024 10/05/2024 Elevated glucose tolerance test [R73.09] 07/05/2024 10/05/2024 Asthma [J45.909] 08/02/2024 Dysmenorrhea [N94.6] 08/02/2024 10/05/2024 Heavy menstrual bleeding [N92.0] 08/02/2024 10/05/2024 Anxiety [F41.9] 08/02/2024 08/02/2024 Tachycardia [R00.0] 08/06/2024 Breech presentation (HCC) [O32.1XX0] 08/30/2024 09/06/2024 Migraine [G43.909] 12/28/2024 BMI 39.0-39.9,adult [Z68.39] 12/28/2024 Back pain [M54.9] 12/28/2024 Encounter Status:Closed by HOMA MCDERMOTT on 01/03/25 Normal [facility] HISTORY PHYSICALon HISTORY PHYSICAL HNO ID: [id number] Author: BRIANA BYRNES APRN.SMASH PIECER Service: ? Author Type: Nurse Practitioner Type: H&P Filed: 12/28/2024 10:34 Note Text: [facility] HISTORY AND PHYSICAL EXAMINATION SERVICE DATE: 12/28/2024 SERVICE TIME: 10:33 AM PRIMARY CARE PHYSICIAN: Jolanta Velasquez APRN.SMASH PIECER Assessment Patient has the following medical conditions which may affect roula-operative course: 1. Papillary thyroid carcinoma (HCC) (C73) 2. Thyroid nodule (E04.1) - Two thyroid nodules: one large on the left, one small on the right. - Total thyroidectomy scheduled with Dr. Hanna at [facility]. - Lymph node biopsy planned to rule out malignancy. 3. Migraine without status migrainosus, not intractable, unspecified migraine type (G43.909) - Chronic migraines without aura; managed with naproxen as needed. - Advised to hold naproxen 7 days prior to surgery; may use Tylenol if needed. 4. Bipolar 2 disorder (HCC) (F31.81) 5. Anxiety (F41.9) - History of anxiety and bipolar 2 disorder; currently managed with Seroquel. - Patient reports significant daytime sedation with Seroquel. - Psychiatric re-evaluation planned after thyroid surgery. 6. Mild intermittent asthma, unspecified whether complicated (HCC) (J45.20) - Denies any shortness of breath, chest pain, wheezing, or cough. 7. BMI 39.0-39.9,adult (Z68.39) - Body mass index is 39.94 kg/m?. 8. Tachycardia (R00.0) - History of sinus tachycardia, previously noted during . - Resting pulse today 98 bpm. - Advised to follow up with cardiology due to family history of early-onset [place]. 9. Back pain, unspecified back location, unspecified back pain laterality, unspecified chronicity (M54.9) - Managed with patient care nursing assistant. 10. Exclusive by mother (Z78.9) - Currently ; advised to discuss anesthesia implications with anesthesiologist after procedure. ANESTHESIA FINDINGS: Intubation History: No history of difficult intubation. No abnormal airway history Significant Anesthesia Considerations: Patient declines IV in her hands. Airway History: No history of difficult airway No abnormal airway history Alejandro Activity Status Index: METS: Walk indoors, such as around the house (1.75 METs) Do light work around the house, such as dusting or washing dishes (2.70 METs) Take care of self; that is eating, dressing, bathing, using the toilet (2.75 METs) Walk a block or two on level ground (2.75 METs) Do moderate work around the house, such as vacuuming, sweeping floors, or carrying in groceries (3.50 METs) Climb a flight of stairs or walk up a hill (5.50 METs) DASI Score: 18.95 Patient denies any chest pain or undue shortness of breath with the above physical activity. Clinical Frailty Scale: 3. Well, with treated comorbid disease STOP-Bang Score: Denies snoring loudly Denies feeling tired, fatigued, or sleepy during the daytime Has not been observed to stop breathing or choking/gasping during sleep Denies having high blood pressure BMI less than or equal to 35 kg/m2 Patient 50 years old or younger Does not have a large neck Non-male patient STOP-Bang Score: 0 I - PHYSICAL EVALUATION AIRWAY Patient intubated: No. Tracheostomy tube not present Mallampati: II. TM distance: >3 FB. Neck ROM: full ROM without neurological symptoms. Mouth opening: adequate. Short neck: no. Thick neck: no DENTAL Dental findings: teeth intact. II - ANESTHESIA PLAN Anesthetic plan additional comments: *PACC/TCI - anesthesia choice. Beta Edna Monitoring Plan Post Procedure Analgesic Plan Prepared for Surgery: optimally prepared for surgery. Labs (12/27/24) reviewed and acceptable for procedure. EKG (08/06/24) reviewed and acceptable for procedure. CONSULTS: Patient does not require consults for optimization at this time Planned Anesthetic: anesthesia choice The Following Tests/Procedures Have Been Initiated: Orders Placed This Encounter FENUGRROSEANNE SEED PO Sig: Take by mouth. This is a virtual visit using [employer] video visit. It required patient-provider interaction for the medical decision making as documented below. REASON FOR VISIT: Nandini Lewis is a 24 year old female who is scheduled for Procedure(s): THYROIDECTOMY TOTAL (Bilateral) EXCISION NODE CERVICAL (Left) at the request of Dr. Juan Hanna for consultation. My final recommendation will be communicated back to the requesting physician by way of shared medical record or letter. Subjective The patient has the following: COVID-19 Immunization Status This patient has no relevant Health Maintenance data. CHIEF COMPLAINT: pre op HPI: Patient has been identified by name and date of : Yes Reason for contact: PACC visit Accompanied by: Self Nandini Lewis is a 24-year-old female, with a history of thyroid nodules, presenting for a preoper (more content not included)... Normal [facility] Basic metabolic 2000 panelon 12-27-2024 Anion gap [Moles/Vol] 11 mmol/L Normal 8-15 [facility] Comment on above: Order Comment: Speci men Type: BLOOD SPECIMENOrdering Facility: [facility] Address: [address] [id number] Performed By: #### 2 4321-2 ####[facility] DAVIDCynthiaNCAGNESA [id number] [place] [address] [place] Calcium [Mass/Vol] 9.5 mg/dL Normal 8.5-10.2 [facility] Comment on above: Order Comment: Speci men Type: BLOOD SPECIMENOrdering Facility: [facility] Address: [address] [place] [address] Performed By: #### 2 4321-2 ####[facility] RIVERSIDENCCANDIDO [id number] [place] [address] [place] Chloride [Moles/Vol] 106 mmol/L Normal 98-107 [facility] Comment on above: Order Comment: Speci men Type: BLOOD SPECIMENOrdering Facility: [facility] Address: [address] [place] [address] Performed By: #### 2 4321-2 ####[facility] RIVERSIDENCAGNESA [id number] [place] [address] [place] CO2 [Moles/Vol] 23 mmol/L Normal 22-30 [facility] Comment on above: Order Comment: Speci men Type: BLOOD SPECIMENOrdering Facility: [facility] Address: [address] [place] [address] Performed By: #### 2 4321-2 ####[facility] PARKWAYWNCLIA [id number] [place] [address] [place] Creatinine [Mass/Vol] 0.76 mg/dL Normal 0.58-0.96 [facility] Comment on above: Order Comment: Speci men Type: BLOOD SPECIMENOrdering Facility: [facility] Address: [address] [place], [place] [id number] Performed By: #### 2 4321-2 ####[facility] RIVERSIDENCLIA [id number] [place] [address] [place] eGFRcr SerPlBld CKD-EPI 2020 114 mL/min/1.73m??? Normal >=60 [facility] Comment on above: Order Comment: Sydnie baez Type: BLOOD SPECIMENOrdering Facility: [facility] Address: [address] [place] [address] Result Comment: Sheila mated Glomerular Filtration Rate (eGFR) is calculated using the 2020 CKD-EPI creatinine equation. This equation utilizes serum creatinine, sex, and age as parameters. The creatinine assay has traceable calibration to isotope dilution-mass spectrometry. Refer to KDIGO guidelines for clinical interpretation. In patients with unstable renal function, e.g. those with acute kidney injury, the eGFR may not accurately reflect actual GFR. Performed By: #### 2 4321-2 ####[facility] [id number] [place] [address] [place] Glucose [Mass/Vol] 108 mg/dL High 74-99 [facility] Comment on above: Order Comment: Sydnie baez Type: BLOOD SPECIMENOrdering Facility: [facility] Address: [address] [place] [address] Result Comment: The [place] Diabetes Association (ADA) provides guidance for cutoff values for fasting glucose and random glucose. The ADA defines fasting as no caloric intake for at least 8 hours. Fasting plasma glucose results between 100 to 125 mg/dL indicate increased risk for diabetes (prediabetes). Fasting plasma glucose results greater than or equal to 126 mg/dL meet the criteria for diagnosis of diabetes. In the absence of unequivocal hyperglycemia, results should be confirmed by repeat testing. In a patient with classic symptoms of hyperglycemia or hyperglycemic crisis, random plasma glucose results greater than or equal to 200 mg/dL meet the criteria for diagnosis of diabetes. Reference: Standards of Medical Care in Diabetes 2016, [place] Diabetes Association. Diabetes Care. 2016.39(Suppl 1). Performed By: #### 2 4321-2 ####[facility] [id number] [place] [address] [place] Potassium [Moles/Vol] 4.3 mmol/L Normal 3.7-5.1 [facility] Comment on above: Order Comment: Speci men Type: BLOOD SPECIMENOrdering Facility: [facility] Address: [address] [place] [address] Performed By: #### 2 4321-2 ####[facility] PARKWAYWNCLIA [id number] [place] [address] [place] Sodium [Moles/Vol] 140 mmol/L Normal 136-144 [facility] Comment on above: Order Comment: Speci men Type: BLOOD SPECIMENOrdering Facility: [facility] Address: [address] [place] [address] Performed By: #### 2 4321-2 ####[facility]ENTERLIA [id number] [place] [address] [place] Urea nitrogen [Mass/Vol] 13 mg/dL Normal 7-21 [facility] Comment on above: Order Comment: Speci men Type: BLOOD SPECIMENOrdering Facility: [facility] Address: [address] [place] [address] Performed By: #### 2 4321-2 ####[facility] [id number] [place] [address] [place] CBC W Auto Differential pane l (Bld)on 12-27-2024 Basophils (Bld) [#/Vol] 10*3/uL Normal <0.11 [facility] Comment on above: Order Comment: Speci men Type: BLOOD SPECIMENOrdering Facility: [facility] Address: [address] [place] [address] Performed By: #### 5 7021-8 ####[facility] RIVERSIDENCLIA [id number] [place] [address] [place] Basophils/100 WBC (Bld) 0.2 % Normal [facility] Comment on above: Order Comment: Speci men Type: BLOOD SPECIMENOrdering Facility: [facility] Address: [address] [place] [address] Performed By: #### 5 7021-8 ####[facility] DAVIDDUNG [id number] [place] [address] [place] Differential cell count method Nom (Bld) Auto Normal [facility] Comment on above: Order Comment: Speci men Type: BLOOD SPECIMENOrdering Facility: [facility] Address: [address] [place] [address] Performed By: #### 5 7021-8 ####[facility] RIVERSIDENCCANDIDO [id number] [place] [address] [place] Eosinophils (Bld) [#/Vol] 0.09 10*3/uL Normal <0.46 [facility] Comment on above: Order Comment: Speci men Type: BLOOD SPECIMENOrdering Facility: [facility] Address: [address] [place] [address] Performed By: #### 5 7021-8 ####[facility] RIVERSIDENCLIA [id number] [place] [address] [place] Eosinophils/100 WBC (Bld) 1.1 % Normal [facility] Comment on above: Order Comment: Speci men Type: BLOOD SPECIMENOrdering Facility: [facility] Address: [address] [place] [address] Performed By: #### 5 7021-8 ####[facility] RIVERSIDENCLIA [id number] [place] [address] [place] Erythrocyte distribution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 FUTURE Prescriptions as of 08/03/2024 - pantoprazole DR (PROTONIX) 20 mg tablet Take 1 tablet by mouth once daily. - aspirin, enteric coated (ECOTRIN LOW STRENGTH) 81 mg EC tablet Take 1 tablet by mouth once daily. - Ezgzunzj-Ng-Dic-Fe-FA tab Take 1 tablet by mouth once daily. - QUEtiapine (SEROQUEL) 25 mg tablet Take 1 tablet by mouth daily at bedtime. Problem List As Of Date 08/03/2024 Noted Resolved Other atopic dermatitis and related conditions *08/13/2005 08/02/2024 Mild intermittent asthma [J45.20] 10/08/2012 Tonsillar hypertrophy [J35.1] 10/08/2012 01/03/2014 Migraine without aura and without status migrai*12/19/2017 03/18/2024 Trauma complication, early, initial encounter (*12/13/2023 Papillary thyroid carcinoma (HCC) [C73] 02/19/2024 Obesity affecting in first trimester *02/19/2024 Bipolar 2 disorder (HCC) [F31.81] 02/19/2024 Anxiety [F41.9] 02/19/2024 Thyroid nodule [E04.1] 02/19/2024 Encounter for supervision of high risk pregnanc*02/19/2024 Heartburn during [O26.899, R12] 02/19/2024 Pyelectasis of fetus on ultrasound [O3*06/18/2024 Elevated glucose tolerance test [R73.09] 07/05/2024 Asthma [J45.909] 08/02/2024 Dysmenorrhea [N94.6] 08/02/2024 Heavy menstrual bleeding [N92.0] 08/02/2024 Anxiety [F41.9] 08/02/2024 08/02/2024 Encounter Status:Closed by TERE ESTEBAN on 08/03/24 Normal [facility] Examination level ultrasound on 08-02-2024 [facility] Radiology Study observation (narrative) [facility] CNPNon 07-09-2024 CNPN Telephone (OBGYWM) NANDINI LEWIS ([id number]) 4 F Date Time Provider Department 07/09/24 BRUNILDA CALDERON During your visit today, we recorded the following information about you: Tere Esteban RN 07/09/2024 11:10 AM Signed 28w1d Patient called into office concerned about possibly leaking fluid. She took a shower this morning and after drying off she stood at the counter with the towel between her legs. After a few minutes she moved the towel and then had two drops of clear fluid smaller than the tip of her pinky finger. No bleeding and good movement noted today. Advised to put on pad and continue monitor for leaking fluid since she just had a shower. Patient is very anxious and states they told her to watch for PROM with her high risk . Please advise. ZAINAB Hart Jennifer, RN 07/09/2024 11:29 AM Signed Spoke with CURTIS who agreed with nurse advice to have patient put on a pad to see if she has any more leaking. Most likely water from her shower. Called and notified patient. Voiced understanding. Brunilda Lazcano RN Allergies As of Date: 07/09/2024 Noted Allergy Reaction SEASONAL ALLERGIES 08/01/2009 3 - Cough 5 - Intolerance 9 - Itching Date Reviewed: 07/05/2024 Reviewed by: Lorraine Cerda MA - Fully Assessed Reason for Visit: Question (OB Question) [1302] Prescriptions as of 07/09/2024 - pantoprazole DR (PROTONIX) 20 mg tablet Take 1 tablet by mouth once daily. - aspirin, enteric coated (ECOTRIN LOW STRENGTH) 81 mg EC tablet Take 1 tablet by mouth once daily. - Vlsduerg-Vd-Htm-Fe-FA tab Take 1 tablet by mouth once daily. - QUEtiapine (SEROQUEL) 25 mg tablet Take 1 tablet by mouth daily at bedtime. Problem List As Of Date 07/09/2024 Noted Resolved OTHER ATOPIC DERMATITIS [L20.89] 08/13/2005 Mild intermittent asthma [J45.20] 10/08/2012 Tonsillar hypertrophy [J35.1] 10/08/2012 01/03/2014 Migraine without aura and without status migrai*12/19/2017 03/18/2024 Trauma complication, early, initial encounter (*12/13/2023 Papillary thyroid carcinoma (HCC) [C73] 02/19/2024 Obesity affecting in first trimester *02/19/2024 Bipolar 2 disorder (HCC) [F31.81] 02/19/2024 Anxiety [F41.9] 02/19/2024 Thyroid nodule [E04.1] 02/19/2024 Encounter for supervision of high risk pregnanc*02/19/2024 Heartburn during [O26.899, R12] 02/19/2024 Pyelectasis of fetus on ultrasound [O3*06/18/2024 Elevated glucose tolerance test [R73.09] 07/05/2024 Encounter Status:Closed by BRUNILDA LAZCANO on 07/09/24 Normal [facility] GLUCOSE GESTATIONAL, 1 HOURo n 07-07-2024 Glucose 1 Hr post Unsp challenge [Mass/Vol] 143 mg/dL Normal 74-179 [facility] Comment on above: Order Comment: Speci men Type: BLOOD SPECIMENOrdering Facility: [facility] Address: [address] [place] [address] Result Comment: [facility] Congress of Obstetricians and Gynecologists ([place]) guidelines state gestational diabetes mellitus is present when 2 or more of the plasma glucose concentrations meet or exceed the following levels: fastin mg/dl, 1 hr: 180 mg/dl, 2 hr: 155 mg/dl, and 3 hr: 140 mg/dl. Performed By: #### G TGST1 ####[facility] [id number] [place] [address] [place] GLUCOSE GESTATIONAL, 2 HOURo n 07-07-2024 Glucose 2 Hr post Unsp challenge [Mass/Vol] 135 mg/dL Normal 74-154 [facility] Comment on above: Order Comment: Sydnie baez Type: BLOOD SPECIMENOrdering Facility: [facility] Address: [address] [place] [address] Result Comment: [facility] Congress of Obstetricians and Gynecologists ([place]) guidelines state gestational diabetes mellitus is present when 2 or more of the plasma glucose concentrations meet or exceed the following levels: fastin mg/dl, 1 hr: 180 mg/dl, 2 hr: 155 mg/dl, and 3 hr: 140 mg/dl. Performed By: #### G TGST2 ####[facility] [id number] [address] [place] GLUCOSE GESTATIONAL, 3 HOURo n 07-07-2024 Glucose 3 Hr post Unsp challenge [Mass/Vol] 76 mg/dL Normal 74-139 [facility] Comment on above: Order Comment: Sydnie baez Type: BLOOD SPECIMENOrdering Facility: [facility] Address: [address] [place] [address] Result Comment: [facility] Congress of Obstetricians and Gynecologists ([place]/[facility]) guidelines state gestational diabetes mellitus is present when 2 or more of the plasma glucose concentrations meet or exceed the following levels: fastin mg/dl, 1 hr: 180 mg/dl, 2 hr: 155 mg/dl, and 3 hr: 140 mg/dl. Performed By: #### G TGST3 ####[facility] [id number] [place] [address] [place] GLUCOSE GESTATIONAL, FASTING on 07-07-2024 Glucose post fast [Mass/Vol] 99 mg/dL High 74-94 [facility] Comment on above: Order Comment: Sydnie baez Type: BLOOD SPECIMENOrdering Facility: [facility] Address: [address] [place] [address] Result Comment: [facility] Congress of Obstetricians and Gynecologists ([place]) guidelines state gestational diabetes mellitus is present when 2 or more of the plasma glucose concentrations meet or exceed the following levels: fastin mg/dl, 1 hr: 180 mg/dl, 2 hr: 155 mg/dl, and 3 hr: 140 mg/dl. Performed By: #### G TGSTF ####[facility] [id number] [place] [address] [place] T4 Free SerPl-mCncon 025 Free T4 [Mass/Vol] 0.9 ng/dL Normal 0.9-1.7 [facility] Comment on above: Order Comment: Sydnie baez Type: BLOOD SPECIMENOrdering Facility: [facility] Address: [address] [place] [address] Performed By: #### 3 024-7, 3016-3 ####[facility] LABCLIA [id number] [place] [address] [place] TSH SerPl-aCncon 07-07-2024 TSH Qn 0.299 m[IU]/L Normal 0.270-4.200 [facility] Comment on above: Order Comment: Sydnie baez Type: BLOOD SPECIMENOrdering Facility: [facility] Address: [address] [place] [address] Result Comment: If t he patient is , TSH reference range varies by gestational period: First Trimester (weeks 9-12): 0.180-2.990 mIU/L Second Trimester: 0.110-3.980 mIU/L Third Trimester: 0.480-4.710 mIU/L Garrett King et al. A Practical Approach for the Verifications and Determination of Site- and Trimester-Specific Reference Intervals for Thyroid Function tests in . Thyroid, 2019:29:3:412-420. Sanya E, et al. 2017 Guidelines of the [place] Thyroid Association for the Diagnosis and Management of Thyroid Disease during and the . Thyroid, 2017:27:3:315-389. Performed By: #### 3 024-7, 3016-3 ####[facility] LABCLIA [id number] [facility] [place] [address] [place] CBC W Auto Differential pane l (Bld)on 07-05-2024 Basophils (Bld) [#/Vol] 10*3/uL Normal <0.11 [facility] Comment on above: Order Comment: Speci men Type: BLOOD SPECIMENOrdering Facility: [facility] Address: [address] [place] [address] Performed By: #### 5 7021-8 ####[facility] [id number] [place] [address] [place] Basophils/100 WBC (Bld) 0.2 % Normal [facility] Comment on above: Order Comment: Speci men Type: BLOOD SPECIMENOrdering Facility: [facility] Address: [address] [place] [address] Performed By: #### 5 7021-8 ####[facility] [id number] [place] [address] [place] Differential cell count method Nom (Bld) Auto Normal [facility] Comment on above: Order Comment: Speci men Type: BLOOD SPECIMENOrdering Facility: [facility] Address: [address] [place] [address] Performed By: #### 5 7021-8 ####[facility] [id number] [place] [address] [place] Eosinophils (Bld) [#/Vol] 0.07 10*3/uL Normal <0.46 [facility] Comment on above: Order Comment: Speci men Type: BLOOD SPECIMENOrdering Facility: [facility] Address: [address] [place] [address] Performed By: #### 5 7021-8 ####[facility] DAVIDAMBREENLIA [id number] [place] [address] [place] Eosinophils/100 WBC (Bld) 0.6 % Normal [facility] Comment on above: Order Comment: Speci men Type: BLOOD SPECIMENOrdering Facility: [facility] Address: [address] [place] [address] Performed By: #### 5 7021-8 ####[facility]IDEJANETAGNESA [id number] [place] [address] [place] Erythrocyte distribution width (RBC) [Ratio] 12.9 % Normal 11.5-15.0 [facility] Comment on above: Order Comment: Speci men Type: BLOOD SPECIMENOrdering Facility: [facility] [facility] Address: [address] [place] [address] Performed By: #### 5 7021-8 ####[facility] [id number] [place] [address] [place] Hematocrit (Bld) [Volume fraction] 35.6 % Low 36.0-46.0 [facility] Comment on above: Order Comment: Speci men Type: BLOOD SPECIMENOrdering Facility: [facility] Address: [address] [place] [address] Performed By: #### 5 7021-8 ####[facility] RIVERSIDEJANETLIA [id number] [place] [address] [place] Hemoglobin (Bld) [Mass/Vol] 12.1 g/dL Normal 11.5-15.5 [facility] Comment on above: Order Comment: Speci men Type: BLOOD SPECIMENOrdering Facility: [facility] Address: [address] [place] [address] Performed By: #### 5 7021-8 ####[facility] [id number] [place] [address] [place] Immature granulocytes (Bld) [#/Vol] 0.12 10*3/uL High <0.10 [facility] Comment on above: Order Comment: Speci men Type: BLOOD SPECIMENOrdering Facility: [facility] Address: [address] [place] [address] Performed By: #### 5 7021-8 ####[facility] [id number] [place] [address] [place] Immature granulocytes/100 WBC (Bld) 1.1 % Normal [facility] Comment on above: Order Comment: Speci men Type: BLOOD SPECIMENOrdering Facility: [facility] Address: [address] [place] [address] Performed By: #### 5 7021-8 ####[facility] [id number] [place] [address] [place] Lymphocytes (Bld) [#/Vol] 1.64 10*3/uL Normal 1.00-4.00 [facility] Comment on above: Order Comment: Speci men Type: BLOOD SPECIMENOrdering Facility: [facility] Address: [address] [place] [address] Performed By: #### 5 7021-8 ####[facility] [id number] [place] [address] [place] Lymphocytes/100 WBC (Bld) 15.1 % Normal [facility] Comment on above: Order Comment: Speci men Type: BLOOD SPECIMENOrdering Facility: [facility] Address: [address] [place] [address] Performed By: #### 5 7021-8 ####[facility] [id number] [place] [address] [place] MCH (RBC) [Entitic mass] 28.9 pg Normal 26.0-34.0 [facility] Comment on above: Order Comment: Speci men Type: BLOOD SPECIMENOrdering Facility: [facility] Address: [address] [place] [address] Performed By: #### 5 7021-8 ####[facility] [id number] [place] [address] [place] MCHC (RBC) [Mass/Vol] 34.0 g/dL Normal 30.5-36.0 [facility] Comment on above: Order Comment: Speci men Type: BLOOD SPECIMENOrdering Facility: [facility] Address: [address] [place], [place] [id number] Performed By: #### 5 7021-8 ####[facility] [id number] [place] [address] [place] MCV (RBC) [Entitic vol] 85.0 fL Normal 80.0-100.0 [facility] Comment on above: Order Comment: Speci men Type: BLOOD SPECIMENOrdering Facility: [facility] Address: [address] [place] [address] Performed By: #### 5 7021-8 ####[facility] [id number] [place] [address] [place] Monocytes (Bld) [#/Vol] 0.35 10*3/uL Normal <0.87 [facility] Comment on above: Order Comment: Speci men Type: BLOOD SPECIMENOrdering Facility: [facility] Address: [address] [place] [address] Performed By: #### 5 7021-8 ####[facility] [id number] [place] [address] [place] Monocytes/100 WBC (Bld) 3.2 % Normal [facility] Comment on above: Order Comment: Speci men Type: BLOOD SPECIMENOrdering Facility: [facility] Address: [address] [place] [address] Performed By: #### 5 7021-8 ####[facility] MILLTOWNCLIA [id number] [place] [address] [place] Neutrophils (Bld) [#/Vol] 8.66 10*3/uL High 1.45-7.50 [facility] Comment on above: Order Comment: Speci men Type: BLOOD SPECIMENOrdering Facility: [facility] Address: [address] [place] [address] Performed By: #### 5 7021-8 ####[facility] MILLWNCLIA [id number] [place] [address] [place] Neutrophils/100 WBC (Bld) 79.8 % Normal [facility] Comment on above: Order Comment: Speci men Type: BLOOD SPECIMENOrdering Facility: [facility] Address: [address] [place] [address] Performed By: #### 5 7021-8 ####[facility] PARKWAYWNCLIA [id number] [place] [address] [place] Nucleated RBC (Bld) [#/Vol] 10*3/uL Normal <0.01 [facility] Comment on above: Order Comment: Speci men Type: BLOOD SPECIMENOrdering Facility: [facility] Address: [address] [place] [address] Performed By: #### 5 7021-8 ####[facility] MILLTOWNCLIA [id number] [place] [address] [place] Nucleated RBC/100 WBC (Bld) [Ratio] 0.0 /100 WBC Normal [facility] Comment on above: Order Comment: Speci men Type: BLOOD SPECIMENOrdering Facility: [facility] Address: [address] [place] [address] Performed By: #### 5 7021-8 ####[facility] [id number] [place] [address] [place] Platelet mean volume (Bld) [Entitic vol] 10.0 fL Normal 9.0-12.7 [facility] Comment on above: Order Comment: Speci men Type: BLOOD SPECIMENOrdering Facility: [facility] Address: [address] [place] [address] Performed By: #### 5 7021-8 ####[facility]ESA [id number] [place] [address] [place] Platelets (Bld) [#/Vol] 237 10*3/uL Normal 150-400 [facility] Comment on above: Order Comment: Speci men Type: BLOOD SPECIMENOrdering Facility: [facility] Address: [address] [place] [address] Performed By: #### 5 7021-8 ####[facility] [id number] [place] [address] [place] RBC (Bld) [#/Vol] 4.19 10*6/uL Normal 3.90-5.20 [facility] Comment on above: Order Comment: Speci men Type: BLOOD SPECIMENOrdering Facility: [facility] Address: [address] [place] [address] Performed By: #### 5 7021-8 ####[facility] [id number] [place] [address] [place] WBC (Bld) [#/Vol] 10.86 10*3/uL Normal 3.70-11.00 [facility] Comment on above: Order Comment: Speci men Type: BLOOD SPECIMENOrdering Facility: [facility] Address: [address] [place] [address] Performed By: #### 5 7021-8 ####[facility] RIVERSIDENCLIA [id number] [place] [address] [place] Examination level ultrasound on 07-05-2024 [facility] Radiology Study observation (narrative) [facility] GESTATIONAL GLUCOSE SCREEN, 1-HOUR, 50 GRAM, NON-FASTINGon 07-05-2024 Glucose [Mass/Vol] 144 mg/dL High 74-134 [facility] Comment on above: Order Comment: Speci men Type: BLOOD SPECIMENOrdering Facility: [facility] Address: [address] [place] [address] Result Comment: [facility] Congress of Obstetricians and Gynecologists (Mary/Gonzales) guidelines state a gestational diabetes mellitus positive screen is made, in women not previously diagnosed with overt diabetes, when the 1 hr plasma glucose level is equal to or above 140 mg/dL. The [facility] Serging Machine Operator and [facility] [place] recommends a 135 mg/dL cutoff. Performed By: #### G LTGST ####[facility] [id number] [place] [address] [place] Reagin and Treponema pallidu m IgG and IgM [Interp]on 07-05-2024 T. pallidum IgG+IgM IA Ql (S) Non-Reactive Normal Nonreactive [facility] Comment on above: Order Comment: Speci men Type: BLOOD SPECIMENOrdering Facility: [facility] Address: [address] [place] [address] Performed By: #### 7 3752-8 ####[facility] LABCLIA [id number] [place] [address] [place] Reagin+T pallidum IgG+IgM Se rPl-Impon 07-05-2024 Reagin and Treponema pallidum IgG and IgM [Interp] Cannot exclude recent Treponemal infection if specimen collected within 7-10 days after appearance of suspect lesions or 2-3 weeks after an exposure. Clinical correlation is required. Normal [facility] Comment on above: Order Comment: Speci men Type: BLOOD SPECIMENOrdering Facility: [facility] Address: [address] [place] [address] Performed By: #### 7 3752-8 ####[facility] LABCLIA [id number] [place] [id number] [place] US THYROID/PARATHYROIDon US THYROID/PARATHYROID * * *Final Report * * * DATE OF EXAM: Jul 01 2024 1:38PM U 1048 - US THYROID/PARATHYROID / PROCEDURE REASON: Thyroid nodule * * * * Physician Interpretation * * * * EXAMINATION: THYROID ULTRASOUND CLINICAL HISTORY: Thyroid nodule history of papillary thyroid carcinoma TECHNIQUE: Sonography and Doppler imaging of the thyroid was performed. Images were obtained and stored in a permanent archive. MQ: UST_1 COMPARISON: None. RESULT: Right Lobe: 6.0 cm x 2.1 cm x 1.9 cm; homogeneous echogenicity, expected vascular flow. Left Lobe: 5.3 cm x 2.0 cm x 1.9 cm; homogeneous echogenicity, expected vascular flow. Isthmus: 0.5 cm The most suspicious thyroid nodule(s) (up to four) as below: NODULE 1: Location: Left mid Size: 2.5 x 1.6 x 1.7 cm Characteristics: Composition: Solid or almost completely solid, 2 points Echogenicity: Hypoechoic, 2 points Shape: Jdnnr-qexu-uixz, 0 points Margin: Lobulated or irregular, 2 points Echogenic foci (add points for all that apply): Punctate echogenic foci, 3 points Internal vascularity: present Interval growth: No significant growth given differences in technique TI-RADS Category: TR5 ACR Recommendation: TI-RADS 5 nodule. FNA is advised. NODULE 2: Location: Right lower pole Size: 0.8 x 0.5 x 0.8 cm Characteristics: Composition: Solid or almost completely solid, 2 points Echogenicity: Isoechoic, 1 point Shape: Jpolz-eqry-rlgg, 0 points Margin: Smooth, 0 points Echogenic foci (add points for all that apply): None, 0 points Internal vascularity: present Interval growth: Stable TI-RADS Category: TR3 ACR Recommendation: TI-RADS 3 nodule. No FNA or further imaging is advised. IMPRESSION: No significant change. Again noted is a biopsy-proven irregular appearing neoplasm within the mid left lobe. This may have slightly increased in size. TI-RADS Category: TR5 ACR Recommendation: TI-RADS 5 nodule. FNA is advised. Already performed January 2024 ACR recommendations are strictly based on the size and imaging appearance at the time of the exam and do not consider stability or previous biopsy results. Manipulative Therapy Specialist: VALERIE Transcribe Date/Time: Jul 03 2024 8:35A Dictated by : JAYESH DANIEL MD This examination was interpreted and the report reviewed and electronically signed by: JAYESH DANIEL MD on Jul 03 2024 8:38AM EST [id number] Normal [facility] T4 Free SerPl-mCncon 025 Free T4 [Mass/Vol] 0.9 ng/dL Normal 0.9-1.7 [facility] Comment on above: Order Comment: Speci men Type: BLOOD SPECIMENOrdering Facility: [facility] Address: [address] [place] [address] Performed By: #### 3 024-7, 3016-3 ####[facility] LABCLIA [id number] [place] [address] [place] TSH SerPl-aCncon 06-08-2024 TSH Qn 0.229 m[IU]/L Low 0.270-4.200 [facility] Comment on above: Order Comment: Sydnie baez Type: BLOOD SPECIMENOrdering Facility: [facility] Address: [address] [place] [address] Result Comment: If t he patient is , TSH reference range varies by gestational period: First Trimester (weeks 9-12): 0.180-2.990 mIU/L Second Trimester: 0.110-3.980 mIU/L Third Trimester: 0.480-4.710 mIU/L Garrett King et al. A Practical Approach for the Verifications and Determination of Site- and Trimester-Specific Reference Intervals for Thyroid Function tests in . Thyroid, 2019:29:3:412-420. Sanya Robledo et al. 2017 Guidelines of the [place] Thyroid Association for the Diagnosis and Management of Thyroid Disease during and the . Thyroid, 2017:27:3:315-389. Performed By: #### 3 024-7, 3016-3 ####[facility] LABCLIA [id number] [facility] DELANOMal[facility] [place] [address] [place] Kole 05-20-2024 CNPN Telephone (OBGYWM) NANDINI LEWIS Venessa ([id number]) 4 F Date Time Provider Department 05/20/24 SHERI MURCIA During your visit today, we recorded the following information about you: Tere Esteban RN 05/20/2024 3:08 PM Signed ----- Message from Sheri Murcia APRN.CNM sent at 05/20/2024 2:49 PM EST ----- Anatomy US reviewed. Unremarkable other than urinary tract dilation. The amount of dilation seen today would be considered low risk UTD (4 to <7 mm), suggesting a minimal risk of urinary tract abnormalities. Repeat US at 28 weeks gestation. YVETTE Villagomez Trisha, RN 05/20/2024 3:10 PM Signed Patient notified. Please file u/s order so patient can schedule. Will then send her Online Milestone Platformt message letting her know she can schedule. Tere Esteban RN Allergies As of Date: 05/20/2024 Noted Allergy Reaction SEASONAL ALLERGIES 08/01/2009 3 - Cough 5 - Intolerance 9 - Itching Date Reviewed: 05/20/2024 Reviewed by: Lorraine Cerda MA - Fully Assessed Reason for Visit: Results [95] Primary Visit Diagnosis:Pyelectasis of fetus on ultrasound [O35.EXX0] Order(s):OBSTETRIC ULTRASOUND WHI [[id number]] Order #: [id number]: 1 FUTURE Prescriptions as of 05/20/2024 - aspirin, enteric coated (ECOTRIN LOW STRENGTH) 81 mg EC tablet Take 1 tablet by mouth once daily. - pantoprazole DR (PROTONIX) 20 mg tablet Take 1 tablet by mouth once daily. - Rgcohepp-Sh-Uoo-Fe-FA tab Take 1 tablet by mouth once daily. - QUEtiapine (SEROQUEL) 25 mg tablet Take 1 tablet by mouth daily at bedtime. Problem List As Of Date 05/20/2024 Noted Resolved OTHER ATOPIC DERMATITIS [L20.89] 08/13/2005 Mild intermittent asthma [J45.20] 10/08/2012 Tonsillar hypertrophy [J35.1] 10/08/2012 01/03/2014 Migraine without aura and without status migrai*12/19/2017 03/18/2024 Trauma complication, early, initial encounter (*12/13/2023 Papillary thyroid carcinoma (HCC) [C73] 02/19/2024 Obesity affecting in first trimester *02/19/2024 Bipolar 2 disorder (HCC) [F31.81] 02/19/2024 Anxiety [F41.9] 02/19/2024 Thyroid nodule [E04.1] 02/19/2024 Encounter for supervision of high risk pregnanc*02/19/2024 Heartburn during [O26.899, R12] 02/19/2024 Encounter Status:Closed by SHERI MURCIA on 05/20/24 Normal [facility] Examination level ultrasound on 05-20-2024 Indication Detailed anatomic survey. Maternal obesity, BMI >30, Papillary thyroid carcinoma Impression REMOTE READ The patient is referred for a detailed anatomic survey. - Single, live, intrauterine . - biometry is consistent with the established gestational age. - There is bilateral urinary tract dilation L 4.7 mm and R 4.2 mm. No malformations were visualized on a complete detailed anatomic survey. - The amniotic fluid volume is normal amount. - The placenta is posterior, fundal. - The Transabdominal cervical length measures 41.6 mm with no evidence of funneling or other dynamic changes. - Not all structural malformations can be detected by ultrasound examination. Ultrasound Consultation - The amount of dilation seen today would be considered low risk UTD (4 to <7 mm), suggesting a minimal risk of urinary tract abnormalities. - NIPT was negative - Currently, there are no other findings suggestive of increased risk of urinary tract abnormalities such as no peripheral calyceal dilation, normal parenchyma appearance / thickness, no bladder enlargement, and normal amniotic fluid volume. Recommendations Return 28 weeks for growth and check kidneys Maternal Assessment Height 170 cm Height (ft) 5 ft Height (in) 7 in Physical Exam Initial weight (lb) 215 lb Initial BMI 33.67 kg/m Method Transabdominal ultrasound examination. View: Adequate visualization Friend . Number of fetuses: 1 Dating LMP on: 11/28/2023 GA by LMP 24 w + 6 d MARIA DEL CARMEN by LMP: 09/03/2024 GA by prior assessment 21 w + 0 d MARIA DEL CARMEN by prior assessment: 09/30/2024 Ultrasound examination on: 05/20/2024 GA by U/S based upon: AC, BPD, Femur, HC GA by U/S 20 w + 5 d MARIA DEL CARMEN by U/S: 10/02/2024 Assigned: based on stated MARIA DEL CARMEN, selected on 03/18/2024 Assigned GA 21 w + 0 d Assigned MARIA DEL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 Psychiatry Comment on above: Generalized anxiety disorder [F41.1] Start: 09-04-2023 End: 09-26-2024 US Pelvis transvaginal US FEMALE PELVIS TRANSVAG Radiology Routine Irregular periods/menstrual cycles Secondary dysmenorrhea Menorrhagia with irregular cycle Expected: 09/04/2023, Expires: 09/26/2024 [facility] Work Phone: Comment on above: Expected: 09/04/2023, Expires: Start: 07-26-2023 [facility] Start: 07-26-2023 [facility] Start: 07-26-2023 Bacteria identified in Urine by Culture [facility] Start: 07-17-2023 [facility] Start: 07-02-2023 ANNUAL PCP TEAM CHRONIC DISEASE VISIT ANNUAL PCP TEAM CHRONIC DISEASE VISIT [facility] Start: 05-26-2023 Behavioral Health Screening Behavioral Health Screening [facility] Start: 05-26-2023 Depression Assessment Depression Assessment [facility] Start: 2023 Screening for malignant neoplasm of cervix Pap Testing [facility] Start: 01-24-2023 Covid-19 Vaccine ( season) Covid-19 Vaccine ( season) [facility] Start: 01-24-2023 Influenza vaccination Influenza Vaccine (#1) [facility] Start: 06-22-2022 ANNUAL PCP TEAM CHRONIC DISEASE VISIT ANNUAL PCP TEAM CHRONIC DISEASE VISIT [facility] Start: 05-26-2022 DEPRESSION ASSESSMENT DEPRESSION ASSESSMENT [facility] Start: 01-24-2022 Influenza vaccination INFLUENZA (#1) [facility] Start: 07-05-2021 CHLAMYDIA SCREENING (18-24) CHLAMYDIA SCREENING (18-24) [facility] Start: 07-05-2021 GC (GONORRHEA) SCREENING (18-24) GC (GONORRHEA) SCREENING (18-24) [facility] Start: 07-05-2021 Screening for Chlamydia trachomatis Chlamydia Screening (18-24) [facility] Start: 2020 Anxiety Screening Anxiety Screening [facility] Start: 2020 Depression Screening Depression Screening [facility] Start: 2020 SPIROMETRY SPIROMETRY [facility] Start: 07-09-2019 Adult depression screening assessment DEPRESSION SCREENING [facility] Start: 07-09-2019 ASTHMA CONTROL TEST ASTHMA CONTROL TEST [facility] Start: 2018 Meningococcal B Vaccine (1 of 2 - Standard) Meningococcal B Vaccine (1 of 2 - Standard) [facility] Start: 2018 Meningococcal B Vaccine: Consider Based On Risk (1 of 2 - Patient Seeks Protection) Meningococcal B Vaccine: Consider Based On Risk (1 of 2 - Patient Seeks Protection) [facility] Start: 12-20-2016 End: 12-20-2016 Appointment Appointment [facility] Work Phone: Start: 2016 PEDS TO ADULT TRANSITION ANNUAL ASSESSMENT PEDS TO ADULT TRANSITION ANNUAL ASSESSMENT [facility] Start: 2014 PEDS TO ADULT TRANSITION INITIAL DISCUSSION PEDS TO ADULT TRANSITION INITIAL DISCUSSION [facility] Start: 2012 MENINGOCOCCAL B: Consider based on risk (1 of 2 - Risk Bexsero 2-dose series) MENINGOCOCCAL B: Consider based on risk (1 of 2 - Risk Bexsero 2-dose series) [facility] Start: 2008 PNEUMOCOCCAL (1 - PCV) PNEUMOCOCCAL (1 - PCV) [facility] ic Start: 2008 Pneumococcal vaccination Pneumococcal Vaccine (1 of 2 - PCV) [facility] Start: 2004 ASTHMA ACTION PLAN ASTHMA ACTION PLAN [facility] Start: 2002 COVID-19 VACCINE (#1) COVID-19 VACCINE (#1) [facility] Bacteria identified in Urine by Culture URINE CULTURE Microbiology Routine with uncertain dates, antepartum 02/19/2024 1:58 PM EDT [facility] Chlamydia trachomatis+Neisseria gonorrhoeae DNA [Presence] in Unspecified specimen by FADY with probe detection GONORRHEA/CHLAMYDIA NAAT Lab Routine with uncertain dates, antepartum 02/19/2024 1:58 PM EDT [facility] CYTOLOGY NON-COMBUSTION ENGINEER CYTOLOGY NON-GY N Lab Routine Thyroid nodule 01/29/2024 3:13 PM EDT [facility] ECG COMPLETE ECG COMPLETE ECG Routine Tachycardia Ordered: 08/06/2024 [facility] Work Phone: Comment on above: Ordered: 08/06/2024 ENDO THYROID/LYMPH N ODE FNA ENDO THYROID/LYMPH NODE FNA Procedures Routine Thyroid nodule Ordered: 01/16/2024 [facility] Work Phone: Comment on above: Ordered: 01/16/2024 ENDO THYROID/LYMPH N ODE FNA ENDO THYROID/LYMPH NODE FNA Procedures Routine Thyroid nodule Ordered: 01/29/2024 [facility] Work Phone: Comment on above: Ordered: 01/29/2024 End: 09-27-2024 nonstress test NON-STRESS TEST Procedures Routine 35 weeks gestation of (HCC) High-risk in third trimester (HCC) Papillary thyroid carcinoma (HCC) Pyelectasis of fetus on ultrasound (HCC) Excessive weight gain during in third trimester (HCC) Obesity in (HCC) Once per week for 4 Occurrences starting 08/30/2024 until 09/27/2024 [facility] Work Phone: Comment on above: Once per week for 4 Occurrences starting 08/30/2024 until 09/27/2024 Glucose [Mass/volume ] in Serum or Plasma GLUCOSE, BLOOD (POC) Lab Routine Urine ketone Ordered: 07/02/2022 [facility] Work Phone: Comment on above: Ordered: 07/02/2022 End: 04-19-2024 OBSTETRIC ULTRASOUND WHI OBSTETRIC ULTRASOUND WHI Anc Imaging Routine Bipolar 2 disorder (HCC) Anxiety Papillary thyroid carcinoma (HCC) Obesity affecting in first trimester, unspecified obesity type Encounter for supervision of high risk in first trimester, antepartum 1 Occurrences starting 04/19/2024 until 04/19/2024 [facility] Work Phone: Comment on above: 1 Occurrences starting 04/19/2024 until 04/19/2024 PAP TEST PAP TEST Lab Rou german Encounter for gynecological examination (general) (routine) with abnormal findings Screening for cervical cancer 08/28/2023 2:44 PM EDT [facility] Work Phone: PAP TEST PAP TEST Lab Rou german Encounter for gynecological examination (general) (routine) with abnormal findings 10/31/2023 3:12 PM EDT [facility] Work Phone: Patient Education [facility] Now in Work Phone: Patient referral [facility] Work Phone: REFER FOR ADMIT INTERVIEW REFER FOR ADMIT INTERVIEW Procedures Routine Papillary thyroid carcinoma (HCC) Ordered: 12/09/2024 [facility] Comment on above: Ordered: 12/09/2024 ROUTINE, GR OUP B STREPTOCOCCUS BY PCR ROUTINE, GROUP B STREPTOCOCCUS BY PCR Microbiology Routine 36 weeks gestation of (HCC) High-risk in third trimester (HCC) Papillary thyroid carcinoma (HCC) Pyelectasis of fetus on ultrasound (HCC) Breech presentation, single or unspecified fetus (HCC) Ordered: 09/06/2024 [facility] Work Phone: Comment on above: Ordered: 09/06/2024 End: 12-15-2025 US Head and neck soft tissue US HEAD/NECK SOFT TISSUE OTHER Radiology Routine Thyroid cancer (HCC) Multiple thyroid nodules 1 Occurrences starting 11/15/2024 until 12/15/2025 [facility] Work Phone: Comment on above: 1 Occurrences starting 11/15/2024 until 12/15/2025 US Head and neck sof t tissue US HEAD/NECK SOFT TISSUE OTHER Radiology Routine Thyroid cancer (HCC) Multiple thyroid nodules 11/27/2024 3:07 PM EDT [facility] Work Phone: US Pelvis transvaginal US FEMALE PELVIS TRANSVAG Radiology Routine Irregular periods/menstrual cycles Secondary dysmenorrhea Menorrhagia with irregular cycle 10/03/2023 8:52 AM EDT [facility] Work Phone: US Thyroid gland [facility] Work Phone: Comment on above: Ordered: 12/16/2023 End: 03-10-2025 US Thyroid gland US THYROID/PARATHYROID Radiology Routine Thyroid nodule 1 Occurrences starting 02/09/2024 until 03/10/2025 [facility] Comment on above: 1 Occurrences starting 02/09/2024 until 03/10/2025 [facility] c [facility] c [facility] Immunizations Immunization Date Immunization Notes Care Provider Yoko parisi 01-06-2019 tuberculin skin test ; purified protein derivative solution, intradermal Arben Del Valle MD Work Phone: [facility] Work Phone: 07-09-2018 meningococcal polysaccharide (groups A, C, Y and W-135) diphtheria toxoid conjugate vaccine (MCV4P) Jazzy Barragan [employer] Work Phone: [facility] Work Phone: 12-19-2014 human papilloma viru s vaccine, quadrivalent Jazzy Jaimesk [employer] Work Phone: [facility] Work Phone: 12-19-2014 meningococcal polysaccharide (groups A, C, Y and W-135) diphtheria toxoid conjugate vaccine (MCV4P) Jazzy Barragan [employer] Work Phone: [facility] Work Phone: 12-19-2014 varicella virus vaccine Bebo a Yung [employer] Work Phone: [facility] Work Phone: 01-03-2014 human papilloma viru s vaccine, quadrivalent Jazzy Jaimesk [facility] Work Phone: [facility] Work Phone: 01-03-2014 tetanus toxoid, redu mc diphtheria toxoid, and acellular pertussis vaccine, adsorbed Jazzyjennifer Barragan [employer] Work Phone: [facility] Work Phone: 03-11-2011 influenza virus vacc ine, unspecified formulation Jasmyne Bermudez [employer] Work Phone: [facility] 02-23-2009 influenza virus vacc ine, unspecified formulation Jazzy Barragan [employer] Work Phone: [facility] Work Phone: 12-14-2007 diphtheria, tetanus toxoids and acellular pertussis vaccine Jazzy Yung [employer] Work Phone: [facility] Work Phone: 12-14-2007 measles, mumps and rubella virus vaccine Jazzy Yung [employer] Work Phone: [facility] Work Phone: 12-14-2007 poliovirus vaccine, inactivated Jazzy Barragan [employer] Work Phone: [facility] Work Phone: 03-13-2004 influenza virus vacc ine, unspecified formulation Jazzy Barragan [facility] Work Phone: [facility] Work Phone: 07-28-2003 diphtheria, tetanus toxoids and acellular pertussis vaccine Jazzy Barragan [facility] Work Phone: [facility] Work Phone: 07-28-2003 haemophilus influenz ae type b vaccine, HbOC conjugate Jazzy Barragan [facility] Work Phone: [facility] Work Phone: 07-28-2003 varicella virus vaccine Bebo Barragan [employer] Work Phone: [facility] Work Phone: 04-28-2003 influenza virus vacc ine, unspecified formulation Jazzy Barragan [facility] Work Phone: [facility] Work Phone: 04-28-2003 measles, mumps and rubella virus vaccine Jazzy Barragan [facility] Work Phone: [facility] Work Phone: 04-28-2003 pneumococcal conjuga te vaccine, 7 valent Jazzyjennifer Barragan [facility] Work Phone: [facility] Work Phone: 01-20-2003 hepatitis B vaccine, pediatric or pediatric/adolescent dosage Jazzy Barragan [employer] Work Phone: [facility] Work Phone: 01-20-2003 poliovirus vaccine, inactivated Jazzy Barragan [facility] Work Phone: [facility] Work Phone: 2002 diphtheria, tetanus toxoids and acellular pertussis vaccine Jazzy Barragan [facility] Work Phone: [facility] Work Phone: 2002 haemophilus influenz ae type b vaccine, HbOC conjugate Jazzy Yung [employer] Work Phone: [facility] Work Phone: 2002 pneumococcal conjuga te vaccine, 7 valent Jazzy Yung [employer] Work Phone: [facility] Work Phone: 2002 diphtheria, tetanus toxoids and acellular pertussis vaccine Jazzy Yung [employer] Work Phone: [facility] Work Phone: 2002 haemophilus influenz ae type b vaccine, HbOC conjugate Jazzy Yung [facility] Work Phone: [facility] Work Phone: 2002 pneumococcal conjuga te vaccine, 7 valent Jazzy Yung [facility] Work Phone: [facility] Work Phone: 2002 poliovirus vaccine, inactivated Jazzy Yung [employer] Work Phone: [facility] Work Phone: 2002 diphtheria, tetanus toxoids and acellular pertussis vaccine Jazzy Yung [facility] Work Phone: [facility] Work Phone: 2002 haemophilus influenz ae type b vaccine, HbOC conjugate Jazzy Yung [employer] Work Phone: [facility] Work Phone: 2002 pneumococcal conjuga te vaccine, 7 valent Jazzy Yung [facility] Work Phone: [facility] Work Phone: 2002 poliovirus vaccine, inactivated Jazzy Yung [facility] Work Phone: [facility] Work Phone: 2002 hepatitis B vaccine, pediatric or pediatric/adolescent dosage Jazzy Yung [employer] Work Phone: [facility] Work Phone: 2002 hepatitis B vaccine, pediatric or pediatric/adolescent dosage Jazzyjennifer [facility] Work [facility]: [facility] Work Phone: Payers Date Payer Category Payer Self-pay [id number] 2023 [employer] BLUE CARD PPO OOS [id number] 2023 Unknown [id number] 2021 Unknown CLAUDIA GOMEZ [employer] PPO [id number] 2021-Present [phone] [address] [place] [address] PPO [id number] 2021 Unknown [id number] 2013 Unknown [id number] Unknown [id number] Unknown [id number] Unknown [id number] Unknown [id number] Social History Date Type Detail Facility Start: 11-23-2021 End: 06-27-2022 Tobacco smoking status NHIS Smokes tobacco daily [facility] Start: 11-23-2021 End: 08-06-2024 Tobacco use and exposure Smokeless tobacco non-user [facility] Start: 07-05-2020 End: 11-23-2021 Alcohol intake Current non-drinker of alcohol (finding) [facility] Start: 11-23-2021 End: 06-27-2022 Tobacco Comment vaping [facility] Start: 2002 Sex Assigned At Not on file [facility] Start: 02-25-2021 End: 11-23-2021 Exposure to SARS-CoV-2 (event) Not sure [facility] Work Phone: Start: 07-17-2023 End: 07-26-2023 Tobacco smoking status NCIS Unknown if ever smoked [facility] Start: 2002 Sex Assigned At Female W [facility] Start: 07-26-2023 End: 09-11-2023 History of Social function [facility] Start: 07-26-2023 End: 09-11-2023 Tobacco use panel [facility] Start: 04-26-2012 National Score (1-100), lower number is lower risk 57 [facility] Start: 07-28-2023 Gender identity Identifies as female gender (finding) [facility] Start: 08-28-2023 End: 08-06-2024 Tobacco smoking status NHIS Never smoked tobacco [facility] Start: 10-14-2023 End: 01-29-2024 Alcohol intake Current drinker of alcohol (finding) [facility] Start: 10-14-2023 Alcohol [facility] Start: 12-16-2023 [facility] Start: 02-09-2024 End: 12-28-2024 Alcoholic beverage intake Ex-drinker (finding) [facility] Start: 02-13-2024 Education 15 [facility] Start: 01-07-2024 [facility] Start: 12-19-2014 Tobacco Comment [facility] History of tobacco use Passive smoker [facility] Start: 09-28-2024 End: 01-10-2025 Tobacco smoking status NHIS Ex-smoker (finding) [facility] Goals Date Patient Goal Desired Activity /State Personal health goal Functional Status Date Assessment Result Facility 01-08-2025 Are you deaf, or do you have serious difficulty hearing No 01/08/2025 7:15 AM Negro Joshi, ZAINAB No [facility] 01-08-2025 Are you blind, or do you have serious difficulty seeing, even when wearing glasses No 01/08/2025 7:15 AM Negro Joshi, ZAINAB No [facility] 01-08-2025 Do you have serious difficulty walking or climbing stairs No 01/08/2025 7:15 AM Negro Joshi, ZAINAB [facility] 01-08-2025 Do you have difficul ty dressing or bathing No 01/08/2025 7:15 AM Negro Joshi, ZAINAB [facility] 01-08-2025 Because of a physica l, mental, or emotional condition, do you have difficulty doing errands alone such as visiting a physician's office or shopping No 01/08/2025 7:15 AM Negro Joshi, ZAINAB [facility] 09-30-2024 Functional status Activity Abili ty Bedrest;Post Op [facility] Work Phone: 12-14-2023 Are you deaf, or do you have serious difficulty hearing No 12/14/2023 10:39 AM Leilani Park, ZAINAB No [facility] 12-14-2023 Are you blind, or do you have serious difficulty seeing, even when wearing glasses No 12/14/2023 10:39 AM Leilani Park RN No [facility] 12-14-2023 Do you have serious difficulty walking or climbing stairs No 12/14/2023 10:39 AM EDT Leilani Booth, ZAINAB No [facility] 12-14-2023 Do you have difficul ty dressing or bathing No 12/14/2023 10:39 AM EDT Leilani Booth, ZAINAB No [facility] 12-14-2023 Because of a physica l, mental, or emotional condition, do you have difficulty doing errands alone such as visiting a physician's office or shopping No 12/14/2023 10:39 AM EDLeilani Lee RN No [facility] Mental Status Date Assessment Result Facility 01-10-2025 Cognitive function Level Of Cons ciousness Awake;Alert;Appropriate;Fol lows Commands [facility] Work Phone: 01-08-2025 Because of a physica l, mental, or emotional condition, do you have serious difficulty concentrating, remembering, or making decisions No 01/08/2025 7:15 AM EDT Negro Gomez, ZAINAB No [facility] 10-01-2024 Cognitive function Voice/Name [facility] Work Phone: 12-14-2023 Because of a physica l, mental, or emotional condition, do you have serious difficulty concentrating, remembering, or making decisions No 12/14/2023 10:39 AM Leilani Park RN No [facility] Clinical Notes 10-08-2012 to 01-10-2025 Telephone Encounter - Juan Hanna MD - 01/10/2025 12:42 PM EDTTelephone Encounter - Juan Hanna MD - 01/10/2025 12:42 PM Juan Christie MD - 12/06/2024 10:05 AM EDT Note Date & Type Note Facility 01-10-2025 Telephone encounter Note Juan Hanna M.D. [facility] [address] Called [facility] to discuss patient's symptoms of hypocalcemia and spoke with Dr. Orr. The patient is POD#3 from total thyroidectomy and left central neck dissection. POD#1 calcium was 8.6 and PTH 8. Now in the ER with numbness/tingling and serum calcium of 6.3. Additional labs pending. Recommenced 2 gram calcium gluconate IV, increase PO calcium 1,200 mg Q3 hours while awake, and Rx calcitriol 0.25 mcg BID x 14. Should she worsen, she will be admitted. I ordered follow-up labs to be drawn on Friday. Juan Hanna M.D. Endocrine Surgeon [facility] Work Phone: 01-10-2025 Miscellaneous Notes Juan Hanna M.D. [facility] [place] [address] Called [facility] to discuss patient's symptoms of hypocalcemia and spoke with Dr. Orr. The patient is POD#3 from total thyroidectomy and left central neck dissection. POD#1 calcium was 8.6 and PTH 8. Now in the ER with numbness/tingling and serum calcium of 6.3. Additional labs pending. Recommenced 2 gram calcium gluconate IV, increase PO calcium 1,200 mg Q3 hours while awake, and Rx calcitriol 0.25 mcg BID x 14. Should she worsen, she will be admitted. I ordered follow-up labs to be drawn on Friday. Juan Hanna M.D. Endocrine Surgeon [facility] January 10, 2025 [id number] Patient Name: Nandini Lewis Contact Information: [phone] (home) [phone] (cell) Reason For Call: Patient is in emergency with Tingling in face and hands and feet. Weakness in arms. Left foot numb Problem with speech and vision (blurry). Sometimes she can't move today when tingling occurs. Thyroid surgery 01/07/[address] Orr a call to discuss what they should do? [phone] Physician:Juan Hanna MD documented in this encounter [facility] 01-10-2025 Telephone encounter Note January 10, 2025 [id number] Patient Name: Nandini Lewis Contact Information: [phone] (home) [phone] (cell) Reason For Call: Patient is in emergency with Tingling in face and hands and feet. Weakness in arms. Left foot numb Problem with speech and vision (blurry). Sometimes she can't move today when tingling occurs. Thyroid surgery 01/07/[address] Orr a call to discuss what they should do? [phone] Physician:Juan Hanna MD [facility] 01-10-2025 Telephone encounter Note Reason for Conversation Tingling in face and hands and feet. Weakness in arms. Left foot numb Problem with speech and vision (blurry). Sometimes she can't move today when tingling occurs. Background Thyroid surgery last week Disposition Call EMS 911 Now Patient is home alone with baby and scared to fall with baby. She plans to call dad who lives 5 minutes away to take her to [facility]. Advised making a 911 call as best option to get to an emergency room. Reason for Disposition [1] Numbness (i.e., loss of sensation) of the face, arm / hand, or leg / foot on one side of the body AND [2] sudden onset AND [3] present now No Initial Assessment on file. No Additional Information on file. Protocols Used Neurologic [id number] [facility] 01-10-2025 Miscellaneous Notes Reason for Conversation Tingling in face and hands and feet. Weakness in arms. Left foot numb Problem with speech and vision (blurry). Sometimes she can't move today when tingling occurs. Background Thyroid surgery last week Disposition Call EMS 911 Now Patient is home alone with baby and scared to fall with baby. She plans to call dad who lives 5 minutes away to take her to [facility]. Advised making a 911 call as best option to get to an emergency room. Reason for Disposition [1] Numbness (i.e., loss of sensation) of the face, arm / hand, or leg / foot on one side of the body AND [2] sudden onset AND [3] present now No Initial Assessment on file. No Additional Information on file. Protocols Used Neurologic [id number] documented in this encounter [facility] 01-08-2025 Note HNO ID: [id number] Author: GOYO WALDEN MD Service: Endocrine Surgery Author Type: Resident Type: Progress Notes Filed: 01/08/2025 07:14 Note Text: Summary: POD#1 ENDOCRINE SURGERY INPATIENT PROGRESS NOTE Name: Nandini Lewis Date: January 07, 2025 POD# 1 Day Post-Op s/p total thyroidectomy and left central neck dissection S: No acute events reported overnight. The patient is recovering appropriately. No dysphagia. No dysphonia. No paresthesias. No signs of hematoma. Tolerating liquid and solid intake well. Baseline voice reported. O: PHYSICAL EXAM: BP (!) 97/48 Pulse 65 Temp 36.7 ?C (98.1 ?F) (Oral) Resp 16 Ht 170.2 cm (5' 7) Wt 109.9 kg (242 lb 4.6 oz) LMP 12/24/2024 (Exact Date) SpO2 98% Yes BMI 37.95 kg/m? General Appearance: In no acute distress. Well appearing. Neuro: Alert and oriented x3. Voice clear, no hoarseness Neck: soft, incision clean/dry/intact, no evidence of deep neck hematoma, dermabond and steri strip in place Extremities: Warm and well perfused. Intake/Output Summary (Last 24 hours) at 01/08/2025 0711 Last data filed at 01/07/2025 1224 Gross per 24 hour Intake 720 ml Output 5 ml Net 715 ml ASSESSMENT: Nandini Lewis is POD 1 from total thyroidectomy and left central neck dissection and recovering well. PLAN of Care: - Multimodal pain regimen, minimize narcotics - Regular diet - Scheduled calcium TID - patient disposed of expressed milk - morning PTH and Ca reviewed - No SQH - SCDs - Start synthroid 125mcg today - prescribed synthroid 125 mcg and Chandana/Vit D at discharge - discharge candidate Goyo Walden MD - PGY4 Department of Endocrine Surgery [facility] 01-07-2025 Note HNO ID: [id number] Author: SARAI GOODEN MD Service: Endocrine Surgery Author Type: Physician Type: Progress Notes Filed: 01/07/2025 16:55 Note Text: ENDOCRINE SURGERY INPATIENT PROGRESS NOTE Name: Nandini Lewis Date: January 07, 2025 POD# 0 s/p total thyroidectomy and left central neck dissection S: Postoperative check was done and the patient is recovering appropriately. No dysphagia. No dysphonia. No paresthesias. No signs of hematoma. O: PHYSICAL EXAM: BP 137/85 Pulse 86 Temp 36.3 ?C (97.4 ?F) (Temporal) Resp 18 LMP 12/24/2024 (Exact Date) SpO2 97% Yes General Appearance: In no acute distress. Well appearing. Neuro: Alert and oriented x3. Voice clear, no hoarseness Neck: soft, incision clean/dry/intact, no evidence of deep neck hematoma Abdomen: Soft. Non-distended. Non-tender. No guarding or rebound. Extremities: Warm and well perfused. Intake/Output Summary (Last 24 hours) at 01/07/2025 1121 Last data filed at 01/07/2025 1052 Gross per 24 hour Intake 700 ml Output 5 ml Net 695 ml ASSESSMENT: Nandini Lewis is POD 0 from total thyroidectomy and left central neck dissection and recovering well. PLAN of Care: - Multimodal pain regimen, minimize narcotics - Regular diet - Scheduled calcium - Follow-up PTH and Ca in AM - No SQH - SCDs - Start synthroid 125mcg in AM - Monitor overnight in the surgical floor Sarai Gooden MD, 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, 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 Staffing Anesthesiologist: Sanjay Killian MD FILENET P8 DEVELOPER: Vinita Sims APRN.FILENET P8 DEVELOPER Performed by: FILENET P8 DEVELOPER Indications and Patient Condition Indications for airway management: anesthesia Preoxygenated: yes anesthesia circuit Patient position: sniffing Method: asleep Cricoid Pressure: Yes Difficult Mask: No Final Airway Details Final airway type: endotracheal airwayFinal Endotracheal Airway: ETT Cuffed: yes Successful intubation technique: video laryngoscopy Devices used: Gaopeng Endotracheal tube insertion site: oral Blade size: #4 ETT size (mm): 7.0 Measured from: lips Measurement (cm): 22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 Strickland MD documented in this encounter [facility] 10-03-2024 Discharge summary Note Date/Time October 03, 2024 7:53a m [facility] Medical Records Department [address] [place] [address] Discharge Summary 10/03/24 0749 MR#: [id number] Acct: [id number] Name: NANDINI LEWIS Rep #:[id number] : 2000 24 From: Sheri Murcia CNM PCP: SARA Cordova Status:ADM IN Location: [id number] Providers Date of Admission: 09/28/24 Primary Care Physician: SARA Cordova Reason For Visit: PRIMARY Diagnosis Discharge Diagnosis (1) Lactating mother: Status: Acute Code(s): Z39.1 - Encounter for care and examination of lactating mother (2) S/P primary low transverse : Status: Acute Code(s): Z98.891 - History of uterine scar from previous surgery (3) Obesity affecting : Status: Acute Code(s): O99.210 - Obesity complicating , unspecified trimester (4) Gestational hypertension: Status: Acute Code(s): O13.9 - Gestational [-induced] hypertension without significant proteinuria, unspecified trimester Qualifiers: Trimester: third trimester Qualified Code(s): O13.3 - Gestational [-induced] hypertension without significant proteinuria, third trimester (5) Anxiety: Status: Acute Code(s): F41.9 - Anxiety disorder, unspecified (6) Bipolar disorder: Status: Acute Code(s): F31.9 - Bipolar disorder, unspecified (7) Post-operative pain: Status: Acute Code(s): G89.18 - Other acute postprocedural pain (8) Anemia due to blood loss: Status: 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) Plan POD 3 Primary C/S Pain control Increase ambulation HGB 9.5 down from 12.3- Start Ferrous Sulfate 325 PO BID Blood pressures stable at 120-130's/80's- no severe ranges D/C home with follow up this week in office Medications at Discharge Home Medications vit with calcium-iron fum-folic acid 27 mg-1 mg tablet 1 tab PO DAILY 03/13/24 quetiapine 25 mg tablet 25 mg PO QHS see doc 03/13/24 pantoprazole 20 mg tablet,delayed release 20 mg PO DAILY see doc 09/28/24 acetaminophen 500 mg tablet 1,000 mg (2 x 500 mg) PO Q6H #0 tabs 10/03/24 ferrous sulfate 325 mg (65 mg iron) tablet (FeroSul) 325 mg PO 1200,1700 #0 tabs10/03/24 ibuprofen 600 mg tablet 600 mg PO Q6H #0 tabs 10/03/24 sennosides 8.6 mg-docusate sodium 50 mg tablet (Stimulant Laxative Plus) 1 - 2 tab PO DAILY #0 tabs 10/03/24 Hospital Course Operations section Procedures None Summary of Care Provided Minutes Spent on Discharge: 15 Hospital Course: Patient had section. Hospital course was uneventful. Physical Exam Narrative Dressing is dry and intact. Patient denies any headache, vision changes, SOB, orCP. Desires discharge home. Const alert and no apparent distress General Appearance: cooperative and comfortable Exam Limitations: no limitations HEENT normocephalic Eyes General Eye: normal appearance of both eyes Neck full ROM General: normal visual inspection Chest Chest: symmetrical chest wall rise Resp normal respiratory effort and normal air movement Effort and Inspection: symmetric chest movement Auscultation: clear to auscultation bilaterally Cardio regular rate and regular rhythm GI normal to inspection, nondistended, normoactive bowel sounds Back/Spine normal ROM Extremity full ROM and no calf tenderness General Extremity: normal exam except as noted Skin no rashes or lesions noted Wound Narrative: Dressing is dry and intact. Neuro CN's II-XII intact bilaterally Psych mental status grossly normal Weight / BMI Weight Weight: 275 lb 9.245 oz Body Mass Index (BMI) 43.1 ABG / Lab / Microbiology Data 10/01/24 05:45 09/28/24 20:55 D/C Instructions Discharge Diet: No restrictions Discharge Activity: May Drive (2 weeks) and May Shower May resume sexual activity in: 6-8 weeks Weight Bearing Status: Weight bearing as tolerated Lifting Restricted to (Lbs): 25 Call your doctor if your incision/area has: Continuous Slow Oozing, Sudden Increased Bleeding, Increased Pain/ Swelling, Increased Redness, Foul Smelling Discharge and Swelling at the incision site Call your doctor if you observe: Fever of 101 or Higher, Numbness or Tingling, Using more than 1 pad per hour, Shortness of breath, Dizziness, Swelling in the ankles, Chest pain, Calf discomfort and Uncontrolled pain Suture Line Care: Avoid Pulling/Pushing Remove Dressing in: 5 days (Remove yourself or call office and schedule appointment for dressing removal.) DC O2, CPAP, BIPAP Needs Home O2 Discharge instructions: No When: 5 days for dressing removal or 2 weeks for post appointment. Meaningful Use Info Meaningful Use Meaningful Use Diagnoses (Choose all that apply): None applicable Ischemic Stroke Statin Dosing Therapy Reference: STATIN DOSE THERAPY REFERENCE: * Patients > 75 years receive moderate or high dose statin therapy. * Patients 75 years or YOUNGER should receive HIGH intensity statin dose unless contraindicated. You will be required to document reason for non-treatment if statin daily dose does not meet guidelines. HIGH DOSE STATIN THERAPY DAILY Atorvastatin > than or = to 40 mg Rosuvastatin > than or = to 20 mg Amlodipine + Atorvastatin > than or = to 2.5/40 mg Ezetimibe + Simvastatin 10/80 mg Simvastatin 80mg Discharge Plan Admission Admit Date/Time: 09/28/24 19:21 Primary Reason for Your Visit: Labor and Delivery Attending Provider: Ousmane Zurita Primary Care Provider: Jolanta Velasquez Discharge Orders/Prescriptions Prescriptions: New sennosides-docusate sodium [Stimulant Laxative Plus] 8.6-50 mg Tablet 1 - 2 tab PO DAILY Qty: 0 0RF ferrous sulfate [FeroSul] 325 mg (65 mg iron) Tablet 325 mg PO 1200,1700 Qty: 0 0RF ibuprofen 600 mg Tablet 600 mg PO Q6H Qty: 0 0RF acetaminophen 500 mg Tablet 1,000 mg PO Q6H Qty: 0 0RF Continued pantoprazole 20 mg tablet,delayed release (DR/EC) 20 mg PO DAILY quetiapine 25 mg tablet 25 mg PO QHS vit-iron fum-folic ac 27-1 mg tablet 1 tab PO DAILY Discontinued aspirin 81 mg tablet,delayed release (DR/EC) 81 mg PO DAILY Referrals / Follow Up: Jolanta Velasquez, [employer] [Primary Care Provider] - Disposition Disposition (needs filled in before D/C Order can be placed): Home, Self Care 10/03/24 0753 <Electronically signed by Sheri Murcia CNM> Cosigner Signature (if applicable): CC: SUMA Murcia; [employer] Jolanta Velasquez~ Signed [facility] Work Phone: 1(277) 693-444705-11-2025 Discharge summary [facility] Medical Records Department [address] [place] [address] Discharge Summary 10/03/24 0749 MR#: [id number] Acct: [id number] Name: NANDINI LEWIS Rep #:[id number] : 2000 24 From: Sheri Murcia CNM PCP: SARA Cordova Status:ADM IN Location: [place] [id number] Providers Date of Admission: 09/28/24 Primary Care Physician: SARA Cordova Reason For Visit: PRIMARY Diagnosis Discharge Diagnosis (1) Lactating mother: Status: Acute Code(s): Z39.1 - Encounter for care and examination of lactating mother (2) S/P primary low transverse : Status: Acute Code(s): Z98.891 - History of uterine scar from previous surgery (3) Obesity affecting : Status: Acute Code(s): O99.210 - Obesity complicating , unspecified trimester (4) Gestational hypertension: Status: Acute Code(s): O13.9 - Gestational [-induced] hypertension without significant proteinuria, unspecified trimester Qualifiers: Trimester: third trimester Qualified Code(s): O13.3 - Gestational [- induced] hypertension without significant proteinuria, third trimester (5) Anxiety: Status: Acute Code(s): F41.9 - Anxiety disorder, unspecified (6) Bipolar disorder: Status: Acute Code(s): F31.9 - Bipolar disorder, unspecified (7) Post-operative pain: Status: Acute Code(s): G89.18 - Other acute postprocedural pain (8) Anemia due to blood loss: Status: 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) Plan POD 3 Primary C/S Pain control Increase ambulation HGB 9.5 down from 12.3- Start Ferrous Sulfate 325 PO BID Blood pressures stable at 120-130's/80's- no severe ranges D/C home with follow up this week in office Medications at Discharge Home Medications vit with calcium-iron fum-folic acid 27 mg-1 mg tablet 1 tab PO DAILY 03/13/24 quetiapine 25 mg tablet 25 mg PO QHS see doc 03/13/24 pantoprazole 20 mg tablet,delayed release 20 mg PO DAILY see doc 09/28/24 acetaminophen 500 mg tablet 1,000 mg (2 x 500 mg) PO Q6H #0 tabs 10/03/24 ferrous sulfate 325 mg (65 mg iron) tablet (FeroSul) 325 mg PO 1200,1700 #0 tabs10/03/24 ibuprofen 600 mg tablet 600 mg PO Q6H #0 tabs 10/03/24 sennosides 8.6 mg-docusate sodium 50 mg tablet (Stimulant Laxative Plus) 1 - 2 tab PO DAILY #0 tabs10/03/24 Hospital Course Operations section Procedures None Summary of Care Provided Minutes Spent on Discharge: 15 Hospital Course: Patient had section. Hospital course was uneventful. Physical Exam Narrative Dressing is dry and intact. Patient denies any headache, vision changes, SOB, orCP. Desires discharge home. Const alert and no apparent distress General Appearance: cooperative and comfortable Exam Limitations: no limitations HEENT normocephalic Eyes General Eye: normal appearance of both eyes Neck full ROM General: normal visual inspection Chest Chest: symmetrical chest wall rise Resp normal respiratory effort and normal air movement Effort and Inspection: symmetric chest movement Auscultation: clear to auscultation bilaterally Cardio regular rate and regular rhythm GI normal to inspection, nondistended, normoactive bowel sounds Back/Spine normal ROM Extremity full ROM and no calf tenderness General Extremity: normal exam except as noted Skin no rashes or lesions noted Wound Narrative: Dressing is dry and intact. Neuro CN's II-XII intact bilaterally Psych mental status grossly normal Weight / BMI Weight Weight: 275 lb 9.245 oz Body Mass Index (BMI) 43.1 ABG / Lab / Microbiology Data 10/01/24 05:45 09/28/24 20:55 D/C Instructions Discharge Diet: No restrictions Discharge Activity: May Drive (2 weeks) and May Shower May resume sexual activity in: 6-8 weeks Weight Bearing Status: Weight bearing as tolerated Lifting Restricted to (Lbs): 25 Call your doctor if your incision/area has: Continuous Slow Oozing, Sudden Increased Bleeding, Increased Pain/ Swelling, Increased Redness, Foul Smelling Discharge and Swelling at the incision site Call your doctor if you observe: Fever of 101 or Higher, Numbness or Tingling, Using more than 1 pad per hour, Shortness of breath, Dizziness, Swelling in the ankles, Chest pain, Calf discomfort and Uncontrolled pain Suture Line Care: Avoid Pulling/Pushing Remove Dressing in: 5 days (Remove yourself or call office and schedule appointment for dressing removal.) DC O2, CPAP, BIPAP Needs Home O2 Discharge instructions: No When: 5 days for dressing removal or 2 weeks for post appointment. Meaningful Use Info Meaningful Use Meaningful Use Diagnoses (Choose all that apply): None applicable Ischemic Stroke Statin Dosing Therapy Reference: STATIN DOSE THERAPY REFERENCE: * Patients > 75 years receive moderate or high dose statin therapy. * Patients 75 years or YOUNGER should receive HIGH intensity statin dose unless contraindicated. You will be required to document reason for non-treatment if statin daily dose does not meet guidelines. HIGH DOSE STATIN THERAPY DAILY Atorvastatin > than or = to 40 mg Rosuvastatin > than or = to 20 mg Amlodipine + Atorvastatin > than or = to 2.5/40 mg Ezetimibe + Simvastatin 10/80 mg Simvastatin 80mg Discharge Plan Admission Admit Date/Time: 09/28/24 19:21 Primary Reason for Your Visit: Labor and Delivery Attending Provider: Ousmane Zurita Primary Care Provider: Jolanta Velasquez Discharge Orders/Prescriptions Prescriptions: New sennosides-docusate sodium [Stimulant Laxative Plus] 8.6-50 mg Tablet 1 - 2 tab PO DAILY Qty: 0 0RF ferrous sulfate [FeroSul] 325 mg (65 mg iron) Tablet 325 mg PO 1200,1700 Qty: 0 0RF ibuprofen 600 mg Tablet 600 mg PO Q6H Qty: 0 0RF acetaminophen 500 mg Tablet 1,000 mg PO Q6H Qty: 0 0RF Continued pantoprazole 20 mg tablet,delayed release (DR/EC) 20 mg PO DAILY quetiapine 25 mg tablet 25 mg PO QHS vit-iron fum-folic ac 27-1 mg tablet 1 tab PO DAILY Discontinued aspirin 81 mg tablet,delayed release (DR/EC) 81 mg PO DAILY Referrals / Follow Up: Jolanta Velasquez CNS [Primary Care Provider] - Disposition Disposition (needs filled in before D/C Order can be placed): Home, Self Care 10/03/24 1923 Cosigner Signature (if applicable): CC: SUMA Murcia; SARA Velasquez~ Signed [facility]05-11-2025 [facility] Medical Records Department [address] [place] [address] Discharge Summary 10/03/24 0749 MR#: [id number] Acct: [id number] Name: NANDINI LEWIS Rep #: [id number] : 2000 24 From: Sheri Murcia CNM PCP: SARA Cordova Status:ADM IN Location: [id number] Providers Date of Admission: 09/28/24 Primary Care Physician: SARA Cordova Reason For Visit: PRIMARY Diagnosis Discharge Diagnosis (1) Lactating mother: Status: Acute Code(s): Z39.1 - Encounter for care and examination of lactating mother (2) S/P primary low transverse : Status: Acute Code(s): Z98.891 - History of uterine scar from previous surgery (3) Obesity affecting : Status: Acute Code(s): O99.210 - Obesity complicating , unspecified trimester (4) Gestational hypertension: Status: Acute Code(s): O13.9 - Gestational [-induced] hypertension without significant proteinuria, unspecified trimester Qualifiers: Trimester: third trimester Qualified Code(s): O13.3 - Gestational [-induced] hypertension without significant proteinuria, third trimester (5) Anxiety: Status: Acute Code(s): F41.9 - Anxiety disorder, unspecified (6) Bipolar disorder: Status: Acute Code(s): F31.9 - Bipolar disorder, unspecified (7) Post-operative pain: Status: Acute Code(s): G89.18 - Other acute postprocedural pain (8) Anemia due to blood loss: Status: 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) Plan POD 3 Primary C/S Pain control Increase ambulation HGB 9.5 down from 12.3- Start Ferrous Sulfate 325 PO BID Blood pressures stable at 120-130's/80's- no severe ranges D/C home with follow up this week in office Medications at Discharge Home Medications vit with calcium-iron fum-folic acid 27 mg-1 mg tablet 1 tab PO DAILY 03/13/24 quetiapine 25 mg tablet 25 mg PO QHS see doc 03/13/24 pantoprazole 20 mg tablet,delayed release 20 mg PO DAILY see doc 09/28/24 acetaminophen 500 mg tablet 1,000 mg (2 x 500 mg) PO Q6H #0 tabs 10/03/24 ferrous sulfate 325 mg (65 mg iron) tablet (FeroSul) 325 mg PO 1200,1700 #0 tabs 10/03/24 ibuprofen 600 mg tablet 600 mg PO Q6H #0 tabs 10/03/24 sennosides 8.6 mg-docusate sodium 50 mg tablet (Stimulant Laxative Plus) 1 - 2 tab PO DAILY #0 tabs 10/03/24 Hospital Course Operations section Procedures None Summary of Care Provided Minutes Spent on Discharge: 15 Hospital Course: Patient had section. Hospital course was uneventful. Physical Exam Narrative Dressing is dry and intact. Patient denies any headache, vision changes, SOB, or CP. Desires discharge home. Const alert and no apparent distress General Appearance: cooperative and comfortable Exam Limitations: no limitations HEENT normocephalic Eyes General Eye: normal appearance of both eyes Neck full ROM General: normal visual inspection Chest Chest: symmetrical chest wall rise Resp normal respiratory effort and normal air movement Effort and Inspection: symmetric chest movement Auscultation: clear to auscultation bilaterally Cardio regular rate and regular rhythm GI normal to inspection, nondistended, normoactive bowel sounds Back/Spine normal ROM Extremity full ROM and no calf tenderness General Extremity: normal exam except as noted Skin no rashes or lesions noted Wound Narrative: Dressing is dry and intact. Neuro CN's II-XII intact bilaterally Psych mental status grossly normal Weight / BMI Weight Weight: 275 lb 9.245 oz Body Mass Index (BMI) 43.1 ABG / Lab / Microbiology Data 10/01/24 05:45 09/28/24 20:55 D/C Instructions Discharge Diet: No restrictions Discharge Activity: May Drive (2 weeks) and May Shower May resume sexual activity in: 6-8 weeks Weight Bearing Status: Weight bearing as tolerated Lifting Restricted to (Lbs): 25 Call your doctor if your incision/area has: Continuous Slow Oozing, Sudden Increased Bleeding, Increased Pain/ Swelling, Increased Redness, Foul Smelling Discharge and Swelling at the incision site Call your doctor if you observe: Fever of 101 or Higher, Numbness or Tingling, Using more than 1 pad per hour, Shortness of breath, Dizziness, Swelling in the ankles, Chest pain, Calf discomfort and Uncontrolled pain Suture Line Care: Avoid Pulling/Pushing Remove Dressing in: 5 days (Remove yourself or call office and schedule appointment for dressing removal.) DC O2, CPAP, BIPAP Needs Home O2 Discharge instructions: No When: 5 days for dressing removal or 2 weeks for post appointment. Meaningful Use Info Meaningful Use Meaningful Use Diagnoses (Choose all that apply): None applicable Ischemic Stroke Statin Dosing Ther (more content not included)...[facility] 10-02-2024 Progress note Author Sheri Murcia [facility] Note Date/Time October 02, 2024 8:29a m [facility] Medical Records Department [address] [place] [address] Progress Note - OBGYN 10/02/24 0820 MR#: [id number] Acct: [id number] Name: NANDINI LEWIS Rep #:[id number] : 2000 24 From: Sheri Murcia CNM PCP: Jolanta Velasquez, [employer] Status:ADM IN Location: [address] Subjective Subjective Patient seen at bedside. Denies headache, vision changes, SOB or CP. Ambulating and voiding without difficulty. Passing flatus. Lochia decreased. Dressing dry and intact. Objective Data Objective Data Vital Signs: Vital Signs Temp Pulse Resp BP Pulse Ox O2 Del Method 97.2 F L 73 18 128/86 H 99 Room Air 10/02/24 01:37 10/02/24 01:37 10/02/24 01:37 10/02/24 01:37 10/02/24 01:37 10/02/24 01:37 Oxygen Delivery Method Room Air Weight: 275 lb 9.245 oz Body Mass Index (BMI) 43.1 Intake & Output: Intake and Output for Last 24 Hours 09/30/24 10/01/24 10/02/24 23:59 23:59 23:59 Intake Total 4293.06 / 4293.06 1000 / 1000 Output Total 2450 / 2450 1550 / 1550 Balance 1843.06 / 1843.06 -550 / -550 Lab / Micro Data Attestation: I reviewed the patient's lab results. 10/01/24 05:45 09/28/24 20:55 ROS Eyes Eyes: Denies blurry vision, spots in vision or tunnel vision ENT HEENT: Denies dizziness or headache(s) Cardiovascular Cardiovascular: Reports systems reviewed and no addt'l complaints, except as documented, dizziness and dyspnea Respiratory/Chest Respiratory/Chest: Reports systems reviewed and no addt'l complaints, except as documented Gastrointestinal Gastrointestinal: Reports systems reviewed and no addt'l complaints, except as documented Genitourinary Genitourinary: Reports systems reviewed and no addt'l complaints, except as documented Neurologic Neurologic: Denies abnormal speech, dizziness, headache(s), syncope or vertigo Psychiatric Psychiatric: Reports systems reviewed and no addt'l complaints, except as documented Physical Exam Const alert and no apparent distress General Appearance: cooperative Orientation / Consciousness: awake, oriented to person and oriented to place Exam Limitations: no limitations HEENT normocephalic Eyes General Eye: normal appearance of both eyes Neck full ROM Chest Chest: symmetrical chest wall rise Resp normal respiratory effort, normal air movement and clear to auscultation bilaterally Auscultation: clear to auscultation bilaterally Cardio regular rate and regular rhythm GI normal to inspection, nondistended, normoactive bowel sounds Uterus Palpation: uterus fundus firm Extremity full ROM and no calf tenderness Skin no rashes or lesions noted Neuro oriented x3 Psych mental status grossly normal and activity/motor behavior normal Assessment & Plan (1) Lactating mother: (2) S/P primary low transverse : (3) Obesity affecting : (4) Gestational hypertension: QUALIFIERS: Trimester: third trimester Qualified Code(s): O13.3 -Gestational [-induced] hypertension without significant proteinuria, third trimester (5) Anxiety: (6) Bipolar disorder: (7) Post-operative pain: (8) Anemia due to blood loss: PLAN: Plan POD 2 Primary C/S Pain control Increase ambulation HGB 9.5 down from 12.3- Start Ferrous Sulfate 325 PO BID Blood pressures stable at 120-130's/80's- no severe ranges Assisted patient with putting post operative binder on support Anticipate D/C home tomorrow 10/02/24828 <Electronically signed by Sheri Murcia CNM> Cosigner Signature (if applicable): CC: ~ Signed [facility] Work Phone: 1(903) 834-292605-10-2025 Progress note [facility] Medical Records Department [address] [place] [address] Progress Note - OBGYN 10/02/24819 MR#: [id number] Acct: [id number] Name: NANDINI LEWIS Rep #:[id number] : 2000 From: Sheri Murcia CNM PCP: Jolanta Velasquez, [employer] Status:ADM IN Location: [place] [address]-1 Subjective Subjective Patient seen at bedside. Denies headache, vision changes, SOB or CP. Ambulating and voiding withoutdifficulty. Passing flatus. Lochia decreased. Dressing dry and intact. Objective Data Objective Data Vital Signs: Vital Signs Temp Pulse Resp BP Pulse Ox O2 Del Method 97.2 F L 73 18 128/86 H 99 Room Air 10/02/24 01:37 10/02/24 01:37 10/02/24 01:37 10/02/24 01:37 10/02/24 01:37 10/02/24 01:37 Oxygen Delivery Method Room Air Weight: 275 lb 9.245 oz Body Mass Index (BMI) 43.1 Intake & Output: Intake and Output for Last 24 Hours 09/30/24 10/01/24 10/02/24 23:59 23:59 23:59 Intake Total 4293.06 / 4293.06 1000 / 1000 Output Total 2450 / 2450 1550 / 1550 Balance 1843.06 / 1843.06 -550 / -550 Lab / Micro Data Attestation: I reviewed the patient's lab results. 10/01/24 05:45 09/28/24 20:55 ROS Eyes Eyes: Denies blurry vision, spots in vision or tunnel vision ENT HEENT: Denies dizziness or headache(s) Cardiovascular Cardiovascular: Reports systems reviewed and no addt'l complaints, except as documented, dizziness and dyspnea Respiratory/Chest Respiratory/Chest: Reports systems reviewed and no addt'l complaints, except as documented Gastrointestinal Gastrointestinal: Reports systems reviewed and no addt'l complaints, except as documented Genitourinary Genitourinary: Reports systems reviewed and no addt'l complaints, except as documented Neurologic Neurologic: Denies abnormal speech, dizziness, headache(s), syncope or vertigo Psychiatric Psychiatric: Reports systems reviewed and no addt'l complaints, except as documented Physical Exam Const alert and no apparent distress General Appearance: cooperative Orientation / Consciousness: awake, oriented to person and oriented to place Exam Limitations: no limitations HEENT normocephalic Eyes General Eye: normal appearance of both eyes Neck full ROM Chest Chest: symmetrical chest wall rise Resp normal respiratory effort, normal air movement and clear to auscultation bilaterally Auscultation: clear to auscultation bilaterally Cardio regular rate and regular rhythm GI normal to inspection, nondistended, normoactive bowel sounds Uterus Palpation: uterus fundus firm Extremity full ROM and no calf tenderness Skin no rashes or lesions noted Neuro oriented x3 Psych mental status grossly normal and activity/motor behavior normal Assessment & Plan (1) Lactating mother: (2) S/P primary low transverse : (3) Obesity affecting : (4) Gestational hypertension: QUALIFIERS: Trimester: third trimester Qualified Code(s): O13.3 -Gestational [-induced] hypertension without significant proteinuria, third trimester (5) Anxiety: (6) Bipolar disorder: (7) Post-operative pain: (8) Anemia due to blood loss: PLAN: Plan POD 2 Primary C/S Pain control Increase ambulation HGB 9.5 down from 12.3- Start Ferrous Sulfate 325 PO BID Blood pressures stable at 120-130's/80's- no severe ranges Assisted patient with putting post operative binder on support Anticipate D/C home tomorrow 10/02/24 0833 Cosigner Signature (if applicable): CC: ~ Signed [facility]05-09-2025 Progress note Author Jasmyne Whitney [facility] Note Date/Time October 01, 2024 8:56am [facility] Medical Records Department [address] [place] [address] Progress Note - OBGYN 10/01/24 0854 MR#: [id number] Acct: [id number] Name: NANDINI LEWIS Rep #:[id number] : 2000 24 From: Jasymne GONZALEZ PCP: Jolanta Velasquez, [employer] Status:ADM IN [facility] Subjective Subjective Doing well per patient and nursing staff. Ambulating and taking PO without difficulty.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 you are interested in this testing. It will require an appointment withour petroleum laboratory technician. This is not an ultrasound performed by a physician in our office during a routine visit. SIGNS AND SYMPTOMS OF LABOR 1. Contractions every 10 minutes or more often 2. Clear, pink, or brownish fluid (water) leaking from vagina 3. Feeling that baby is pushing down, pressure 4. Low, dull backache 5. Cramps that feel like a period 6. Cramps with or without diarrhea If you notice any of the above symptoms, contact our office at [phone] and ask to speak with anurse. After hours, you can call doctors registry at [phone] OR call [facility] at [phone] ask to have the doctor electronic technician paged. If you consider this an emergency, dial 9-1-1 or go to your nearest emergency department. NEED HELP? Are you dealing with a violent or abusive relationship? Are you a victim of rape or sexual assult? Call [facility] ([place]) 24 hour Crisis Hotline: 814.961.5145 or 990-587-1027. MANUAL Your Guide to a Healthy manual is now on-line. Visit [email or web address] to download your free copy documented in this encounterSumma [facility]04-22-2025 Telephone encounter Note * Telephone Encounter - Homa Mcdermott RN - 09/14/2024 9:49 AM EDT 37w5d Last OV 09/13/24. Requested Prescriptions Pending Prescriptions Disp Refills pantoprazole DR (PROTONIX) 20 mg tablet 30 tablet 3 Sig: Take 1 tablet by mouth once daily. Homa Mcdermott RN [facility]04-22-2025 Miscellaneous Notes* Telephone Encounter - Homa Mcdermott RN - 09/14/2024 9:49 AM EDT 37w5d Last OV 09/13/24. Requested Prescriptions Pending Prescriptions Disp Refills pantoprazole DR (PROTONIX) 20 mg tablet 30 tablet 3 Sig: Take 1 tablet by mouth once daily. Homa Mcdermott RN documented in this encounterSumma Health [facility]04-21-2025 Progress note* Quick Notes - Brunilda Calderon MD - 09/13/2024 2:28 PM EDT S: Nandini Lewis is a 24 year old female who presents at 09/30/2024, by Ultrasound for a routine visit. Denies headache, visual changes, chest pain, shortness of breath, vaginal bleeding, leakage of fluid, or dysuria. Feeling well, no complaints. Good movement, No contractions O: See flow sheet Gen: No apparent distress Abd: Gravid, nontender Vtx verified by US ASSESSMENT/PLAN: 1. 37 weeks gestation of (HCC) - ICD9: V22.2, ICD10: Z3A.37 (primary diagnosis) Labor precautions - URINE OB DIP B/O 2. Encounter for supervision of high risk in first trimester, antepartum (HCC) - ICD9: V23.9, ICD10: O09.91 - URINE OB DIP B/O 3. High-risk in third trimester ([facility]) - ICD9: V23.9, ICD10: O09.93 - URINE OB DIP B/O 4. Papillary thyroid carcinoma (HCC) - ICD9: 193, ICD10: C73 - URINE OB DIP B/O 5. Pyelectasis of fetus on ultrasound ([facility]) - ICD9: 796.5, ICD10: O35.EXX0 F/u after delivery - URINE OB DIP B/O Brunilda Calderon MD [facility]04-21-2025 Miscellaneous Notes* Quick Notes - Brunilda Calderon MD - 09/13/2024 2:28 PM EDT S: Nandini Lewis is a 24 year old female who presents at 09/30/2024, by Ultrasound for a routine visit. Denies headache, visual changes, chest pain, shortness of breath, vaginal bleeding, leakage of fluid, or dysuria. Feeling well, no complaints. Good movement, No contractions O: See flow sheet Gen: No apparent distress Abd: Gravid, nontender Vtx verified by US ASSESSMENT/PLAN: 1. 37 weeks gestation of ([facility]) - ICD9: V22.2, ICD10: Z3A.37 (primary diagnosis) Labor precautions - URINE OB DIP B/O 2. Encounter for supervision of high risk in first trimester, antepartum ([facility]) - ICD9: V23.9, ICD10: O09.91 - URINE OB DIP B/O 3. High-risk in third trimester ([facility]) - ICD9: V23.9, ICD10: O09.93 - URINE OB DIP B/O 4. Papillary thyroid carcinoma (HCC) - ICD9: 193, ICD10: C73 - URINE OB DIP B/O 5. Pyelectasis of fetus on ultrasound ([facility]) - ICD9: 796.5, ICD10: O35.EXX0 F/u after delivery - URINE OB DIP B/O Brunilda Calderon MD documented in this encounterCleveland [id number] Instructions* Patient Instructions* Imelda Keith MA - 09/13/2024 1:47 PM EDT SEQUENTIAL SCREENINGS The [facility] offers sequential screenings for women who are interested in screenings for chromosomal abnormalities and certain defects during a . The sequential screen combinesultrasound and blood tests to determine the risk of chromosomal abnormalities, including Down's Syndrome (Trisomy 21) and Trisomy 18, as well as open neural tube defects including spina bifida. Ultrasound examination is performed between 11 weeks and 13 weeks gestational age. Blood tests are drawn after the ultrasound and again later in the between 15 and 21 weeks gestational age. Please let your physician know if you are interested in this testing. It will require an appointment withour petroleum laboratory technician. This is not an ultrasound performed by a physician in our office during a routine visit. SIGNS AND SYMPTOMS OF LABOR 1. Contractions every 10 minutes or more often 2. Clear, pink, or brownish fluid (water) leaking from vagina 3. Feeling that baby is pushing down, pressure 4. Low, dull backache 5. Cramps that feel like a period 6. Cramps with or without diarrhea If you notice any of the above symptoms, contact our office at [phone] and ask to speak with anurse. After hours, you can call doctors registry at [phone] OR call [facility] at [phone] ask to have the doctor electronic technician paged. If you consider this an emergency, dial 9-1-7 or go to your nearest emergency department. NEED HELP? Are you dealing with a violent or abusive relationship? Are you a victim of rape or sexual assult? Call [facility] ([place]) 24 hour Crisis Hotline: 618.622.7074 or 093-049-7854. MANUAL Your Guide to a Healthy manual is now on-line. Visit [email or web address] to download your free copy documented in this encounterSumma Health [facility]04-14-2025 Note* Addendum Note - Ousmane Zurita MD - 09/06/2024 4:45 PM EDTAddended by: OUSMANE ZURITA on: 09/06/2024 04:45 PM Modules accepted: Orders [facility]04-14-2025 Miscellaneous Notes* Addendum Note - Ousmane Zurita MD - 09/06/2024 4:45 PM EDTAddended by: OUSMANE ZURITA on: 09/06/2024 04:45 PM Modules accepted: Orders * Addendum Note - Imelda Keith MA - 09/06/2024 1:46 PM EDTAddended by: IMELDA KEITH on: 09/06/2024 01:46 PM Modules accepted: Orders * Quick Notes - Ousmane Zurita MD - 09/06/2024 1:30 PM EDT SW- Doing well. No ctx, vb, lof. Good FM PE: Gen- NAD, well appearing Abd- Soft, gravid, NT LE- 2+ pitting edema See flowsheet A/p 36 wk gestation - GBS today - Bedside TAUS VERTEX today and feels engaged in pelvis - PTL precautions reviewed - RTO 1 wk Ousmane Zurita DO documented in this encounterSumma Health [facility]04-14-2025 Note* Addendum Note - Imelda Keith MA - 09/06/2024 1:46 PM EDTAddended by: IMELDA KEITH on: 09/06/2024 01:46 PM Modules accepted: Orders [facility]04-14-2025 Progress note* Quick Notes - Ousmane Zurita MD - 09/06/2024 1:30 PM EDT SW- Doing well. No ctx, vb, lof. Good FM PE: Gen- NAD, well appearing Abd- Soft, gravid, NT LE- 2+ pitting edema See flowsheet A/p 36 wk gestation - GBS today - Bedside TAUS VERTEX today and feels engaged in pelvis - PTL precautions reviewed - RTO 1 wk Ousmane Zurita DO [facility]04-14-2025 Instructions* Patient Instructions* Imelda Keith MA - 09/06/2024 1:15 PM EDT SEQUENTIAL SCREENINGS The [facility] offers sequential screenings for women who are interested in screenings for chromosomal abnormalities and certain defects during a . The sequential screen combinesultrasound and blood tests to determine the risk of chromosomal abnormalities, including Down's Syndrome (Trisomy 21) and Trisomy 18, as well as open neural tube defects including spina bifida. Ultrasound examination is performed between 11 weeks and 13 weeks gestational age. Blood tests are drawn after the ultrasound and again later in the between 15 and 21 weeks gestational age. Please let your physician know if you are interested in this testing. It will require an appointment withour petroleum laboratory technician. This is not an ultrasound performed by a physician in our office during a routine visit. SIGNS AND SYMPTOMS OF LABOR 1. Contractions every 10 minutes or more often 2. Clear, pink, or brownish fluid (water) leaking from vagina 3. Feeling that baby is pushing down, pressure 4. Low, dull backache 5. Cramps that feel like a period 6. Cramps with or without diarrhea If you notice any of the above symptoms, contact our office at [phone] and ask to speak with anurse. After hours, you can call doctors registry at [phone] OR call [facility] at [phone] ask to have the doctor electronic technician paged. If you consider this an emergency, dial 01-24- or go to your nearest emergency department. NEED HELP? Are you dealing with a violent or abusive relationship? Are you a victim of rape or sexual assult? Call [facility] ([facility] 24 hour Crisis Hotline: 508.549.7250 or 826-697-2206. MANUAL Your Guide to a Healthy manual is now on-line. Visit [email or web address] to download your free copy documented in this encounterSumma Health [facility]04-10-2025 Miscellaneous Notes* Telephone Encounter - Sue Morton RN - 09/02/2024 1:15 PM EDT Order signed and faxed. Sue Morton RN * Telephone Encounter - Brunilda Lazcano RN - 09/02/2024 10:01 AM EDT Received breast pump RX from [employer]. To CP to sign. Brunilda Lazcano RN documented in this encounterSumma Health [facility]04-10-2025 Telephone encounter Note * Telephone Encounter - Sue Morton RN - 09/02/2024 1:15 PM EDT Order signed and faxed. Sue Morton RN [facility]04-10-2025 Telephone encounter Note* Telephone Encounter - Brunilda Lazcano RN - 09/02/2024 10:01 AM EDT Received breast pump RX from [employer]. To CP to sign. Brunilda Lazcano RN [facility]04-07-2025 Note Indication Evaluation of growth Maternal obesity, BMI >30, papillary thyroid cancer Impression REMOTE READ - Single, live, intrauterine . - The biometry is consistent with the assigned gestational dating. - The EFW is 2782 g, at the 57%. AC is at the 84%. - The amniotic fluid volume is normal amount with an MVP of 6.2 cm and an LIZETT of 14.3 cm. - The placenta is posterior, fundal. - No malformations visualized on a limited survey as detailed below. Low risk UTD (A1), 28 weeks and higher (Bilateral AP RPD: 7 to 10 mm, or any duplication anomaly without associated dilation): - Urinary tract dilatation (previously called pyelectasis) is noted (6.4 mm right, 8 mm left; normal <7 mm) - The degree of dilation observed today is consistent with low risk UTD (7 to 10 mm), indicating a low risk of urinary tract abnormalities. - No additional findings suggestive of increased risk are present: -No peripheral calyceal dilation. -Normal parenchyma appearance and thickness. -No bladder enlargement. -Normal amniotic fluid volume. Recommendations Inform pediatrics at delivery [facility] pediatric urology recommends urology follow up and renal ultrasound in around 1 month after delivery Maternal Assessment Height 170 cm Height (ft) 5 ft Height (in) 7 in Physical Exam Initial weight (lb) 215 lb Initial BMI 33.67 kg/m Maternal assessment other: 1 Para 0 Method Transabdominal ultrasound examination Friend . Number of fetuses: 1 Dating LMP on: 11/28/2023 GA by LMP 39 w + 3 d MARIA DEL CARMEN by LMP: 09/03/2024 GA by prior assessment 35 w + 4 d MARIA DEL CARMEN by prior assessment: 09/30/2024 Ultrasound examination on: 08/30/2024 GA by U/S based upon: AC, BPD, Femur, HC GA by U/S 35 w + 6 d MARIA DEL CARMEN by U/S: 09/28/2024 Assigned: based on stated MARIA DEL CARMEN, selected on 08/30/2024 Assigned GA 35 w + 4 d Assigned MARIA DEL CARMEN: 09/30/2024 General Evaluation Cardiac activity present. FHR 155 bpm. movements: present. Presentation: breech Placenta: Placental site: posterior, fundal Umbilical cord: Cord vessels: 3 vessel cord Amniotic fluid: Amount of AF: normal amount. MVP 6.2 cm. LIZETT 14.3 cm. Q1 3.2 cm, Q2 6.2 cm, Q3 2.0 cm, Q4 2.9 cm Growth Overview Exam date GA BPD (mm) HC (mm) AC (mm) FL (mm) HL (mm) EFW (g) 04/19/2024 16w 4d 35.3 62% 129.8 42% 103.9 43% 21.8 51% 155 31% 05/20/2024 21w 0d 49.5 48% 181.3 35% 153.6 29% 32.8 35% 34.4 72% 352 19% 07/05/2024 27w 4d 70.9 68% 256.2 46% 237.1 56% 50.3 44% 1108 41% 08/02/2024 31w 4d 80.8 67% 296.1 57% 291.1 87% 57.3 17% 1903 56% 08/30/2024 35w 4d 91.1 88% 326.7 62% 326.5 84% 65.7 24% 2782 57% Biometry Standard BPD 91.1 mm 37w 0d 88% Hadlock OFD 113.3 mm 35w 1d 49% Nicolaides HC 326.7 mm 36w 2d 62% Arvin AC 326.5 mm 36w 4d 84% Hadlock Femur 65.7 mm 33w 4d 24% Arvin EFW 2,782 g 35w 6d 57% Hadlock EFW (lb) 6 lb EFW (oz) 2 oz EFW by: Hadlock (HC-AC-FL) [employer] 5.0 mm Rt Renal pelvis ap 6.4 mm Lt Renal pelvis ap 8.0 mm Extremities / Bony Struc FL / HC 0.20 Other Structures FHR 155 bpm Anatomy Lateral ventricles: normal Cavum septi pellucidi: normal Cerebellum: normal Cisterna magna: normal 4-chamber view: suboptimally visualized RVOT view: suboptimally visualized LVOT view: suboptimally visualized 3-vessel view: suboptimally visualized Heart / Thorax Situs: situs solitus (normal) Diaphragm: normal Stomach: normal Bladder: normal Abdomen Rt kidney: normal Lt kidney: abnormal Lt kidney: Urinary tract dilation 8.0mm sex: male Wants to know sex: yes Performed By: Sue Peraza RDMS, RVT Read By: Kathie Frazier M.D.MATERNAL [id number] Progress note* Quick Notes - Ousmane Zurita MD - 08/30/2024 3:01 PM EDT SW- Pt doing well. Some pelvic pressure. No vb, lof. Some cramping. Good FM. Has had mild headache for a few days. Had some sinus congestion and rhinorrhea. Has not taken Tylenol PE: Gen- NAD, well appearing See flowsheet A/p 35 wk gestation - Growth US today and final report pending. Prelim BREECH. Discussed r/b/a ECV vs primary section. Questions answered. Patient undecided. Plans to work with chiropractor. She would like to reassess next week and decide on a plan at that time - High risk : Plan for weekly NST's at 36 weeks and order placed - RTO 1 wk Ousmane Zurita DO [facility]04-07-2025 Miscellaneous Notes* Quick Notes - Ousmane Zurita MD - 08/30/2024 3:01 PM EDT SW- Pt doing well. Some pelvic pressure. No vb, lof. Some cramping. Good FM. Has had mild headache for a few days. Had some sinus congestion and rhinorrhea. Has not taken Tylenol PE: Gen- NAD, well appearing See flowsheet A/p 35 wk gestation - Growth US today and final report pending. Prelim BREECH. Discussed r/b/a ECV vs primary section. Questions answered. Patient undecided. Plans to work with chiropractor. She would like to reassess next week and decide on a plan at that time - High risk : Plan for weekly NST's at 36 weeks and order placed - RTO 1 wk Ousmane Zurita DO documented in this encounterSumma Health [facility]04-07-2025 Instructions* Patient Instructions* Imelda Keith MA - 08/30/2024 2:42 PM EDT SEQUENTIAL SCREENINGS The [facility] offers sequential screenings for women who are interested in screenings for chromosomal abnormalities and certain defects during a . The sequential screen combinesultrasound and blood tests to determine the risk of chromosomal abnormalities, including Down's Syndrome (Trisomy 21) and Trisomy 18, as well as open neural tube defects including spina bifida. Ultrasound examination is performed between 11 weeks and 13 weeks gestational age. Blood tests are drawn after the ultrasound and again later in the between 15 and 21 weeks gestational age. Please let your physician know if you are interested in this testing. It will require an appointment withour petroleum laboratory technician. This is not an ultrasound performed by a physician in our office during a routine visit. SIGNS AND SYMPTOMS OF LABOR 1. Contractions every 10 minutes or more often 2. Clear, pink, or brownish fluid (water) leaking from vagina 3. Feeling that baby is pushing down, pressure 4. Low, dull backache 5. Cramps that feel like a period 6. Cramps with or without diarrhea If you notice any of the above symptoms, contact our office at [phone] and ask to speak with anurse. After hours, you can call doctors registry at [phone] OR call [facility] at [phone] ask to have the doctor electronic technician paged. If you consider this an emergency, dial 9-1-2 or go to your nearest emergency department. NEED HELP? Are you dealing with a violent or abusive relationship? Are you a victim of rape or sexual assult? Call [facility] ([place]) 24 hour Crisis Hotline: 464.615.1993 or 365-002-8408. MANUAL Your Guide to a Healthy manual is now on-line. Visit [email or web address] to download your free copy documented in this encounterSumma Health [facility]03-31-2025 Progress note* Quick Notes - Brunilda Calderon MD - 08/23/2024 4:44 PM EDT S: Nandini Lewis is a 24 year old female who presents at 09/30/2024, by Ultrasound for a routine visit. Denies headache, visual changes, chest pain, shortness of breath, vaginal bleeding, leakage of fluid, or dysuria. Feeling well, no complaints. Good movement, No contractions O: See flow sheet Gen: No apparent distress Abd: Gravid, nontender Growth US scheduled next week ASSESSMENT/PLAN: 1. High-risk in third trimester - ICD9: V23.9, ICD10: O09.93 (primary diagnosis) - URINE OB DIP B/O 2. Papillary thyroid carcinoma (HCC) - ICD9: 193, ICD10: C73 - URINE OB DIP B/O 3. Pyelectasis of fetus on ultrasound - ICD9: 796.5, ICD10: O35.EXX0 - URINE OB DIP B/O 4. 34 weeks gestation of - ICD9: V22.2, ICD10: Z3A.34 Labor precautions - URINE OB DIP B/O Brunilda Calderon MD [facility]03-31-2025 Miscellaneous Notes* Quick Notes - Brunilda Calderon MD - 08/23/2024 4:44 PM EDT S: Nandini Lewis is a 24 year old female who presents at 09/30/2024, by Ultrasound for a routine visit. Denies headache, visual changes, chest pain, shortness of breath, vaginal bleeding, leakage of fluid, or dysuria. Feeling well, no complaints. Good movement, No contractions O: See flow sheet Gen: No apparent distress Abd: Gravid, nontender Growth US scheduled next week ASSESSMENT/PLAN: 1. High-risk in third trimester - ICD9: V23.9, ICD10: O09.93 (primary diagnosis) - URINE OB DIP B/O 2. Papillary thyroid carcinoma (HCC) - ICD9: 193, ICD10: C73 - URINE OB DIP B/O 3. Pyelectasis of fetus on ultrasound - ICD9: 796.5, ICD10: O35.EXX0 - URINE OB DIP B/O 4. 34 weeks gestation of - ICD9: V22.2, ICD10: Z3A.34 Labor precautions - URINE OB DIP B/O Brunilda Calderon MD documented in this encounterSumma Health [facility]03-31-2025 Instructions* Patient Instructions* Porfirio Bass MA - 08/23/2024 12:55 PM EDT SEQUENTIAL SCREENINGS The [facility] offers sequential screenings for women who are interested in screenings for chromosomal abnormalities and certain defects during a . The sequential screen combinesultrasound and blood tests to determine the risk of chromosomal abnormalities, including Down's Syndrome (Trisomy 21) and Trisomy 18, as well as open neural tube defects including spina bifida. Ultrasound examination is performed between 11 weeks and 13 weeks gestational age. Blood tests are drawn after the ultrasound and again later in the between 15 and 21 weeks gestational age. Please let your physician know if you are interested in this testing. It will require an appointment withour petroleum laboratory technician. This is not an ultrasound performed by a physician in our office during a routine visit. SIGNS AND SYMPTOMS OF LABOR 1. Contractions every 10 minutes or more often 2. Clear, pink, or brownish fluid (water) leaking from vagina 3. Feeling that baby is pushing down, pressure 4. Low, dull backache 5. Cramps that feel like a period 6. Cramps with or without diarrhea If you notice any of the above symptoms, contact our office at [phone] and ask to speak with anurse. After hours, you can call doctors registry at [phone] OR call [facility] at [phone] ask to have the doctor electronic technician paged. If you consider this an emergency, dial 9-1-1 or go to your nearest emergency department. NEED HELP? Are you dealing with a violent or abusive relationship? Are you a victim of rape or sexual assult? Call [facility] ([facility] 24 hour Crisis Hotline: 636.236.6233 or 263-786-3732. MANUAL Your Guide to a Healthy manual is now on-line. Visit [email or web address] to download your free copy documented in this encounterSumma Health [facility]03-14-2025 Progress note* Quick Notes - Sheri Murcia APRN.CNM - 08/06/2024 3:50 PM EDT S: Nandini Lewis is a 24 year old female who presents as an add on. She was being seen in endocrinology department for a visit and pulse rate was up to 130 bpm. Patient also reports increased swelling in both feet/ ankles. Stated swelling began a couple of days ago. She cannot fit into shoes and has to wear sandals. Denies current headache but reports having headache a couple of days ago. Denies any chest pain or heaviness, feelings of racing heart, SOB, or visual changes. Positive movements. Denies any loss of fluid, vaginal bleeding or contractions. GEN:No apparent distress BLE- +2 edema bilateral medial ankles and feet. +1 reflexes with negative clonus BP normal 124/79 ASSESSMENT/PLAN: 1. Tachycardia 2. High-risk in third trimester 3. 32 weeks gestation of 4. Papillary thyroid carcinoma (HCC) -EKG completed- reading sinus tachycardia- awaiting final report - Do not suspect preeclampsia at this time - Keep feet elevated - Keep well hydrated - Lower sodium intake - Pulse down to 119 bpm - Patient to report to ER if any chest heaviness, SOB, CP, feelings of racing heart beat, headache or vision changes - Dr. Zurita notified and involved with plan of care - RTO 1 week or sooner if needed Sheri Murcia APRN.CNM [facility]03-14-2025 Miscellaneous Notes* Quick Notes - Sheri Murcia APRN.CNM - 08/06/2024 3:50 PM EDT S: Nandini Lewis is a 24 year old female who presents as an add on. She was being seen in endocrinology department for a visit and pulse rate was up to 130 bpm. Patient also reports increased swelling in both feet/ ankles. Stated swelling began a couple of days ago. She cannot fit into shoes and has to wear sandals. Denies current headache but reports having headache a couple of days ago. Denies any chest pain or heaviness, feelings of racing heart, SOB, or visual changes. Positive movements. Denies any loss of fluid, vaginal bleeding or contractions. GEN:No apparent distress BLE- +2 edema bilateral medial ankles and feet. +1 reflexes with negative clonus BP normal 124/79 ASSESSMENT/PLAN: 1. Tachycardia 2. High-risk in third trimester 3. 32 weeks gestation of 4. Papillary thyroid carcinoma (HCC) -EKG completed- reading sinus tachycardia- awaiting final report - Do not suspect preeclampsia at this time - Keep feet elevated - Keep well hydrated - Lower sodium intake - Pulse down to 119 bpm - Patient to report to ER if any chest heaviness, SOB, CP, feelings of racing heart beat, headache or vision changes - Dr. Zurita notified and involved with plan of care - RTO 1 week or sooner if needed Sheri Murcia APRN.CNM documented in this encounterSumma Health [facility]03-14-2025 Instructions* Patient Instructions* Porfirio Bass MA - 08/06/2024 3:00 PM EDT SEQUENTIAL SCREENINGS The [facility] offers sequential screenings for women who are interested in screenings for chromosomal abnormalities and certain defects during a . The sequential screen combinesultrasound and blood tests to determine the risk of chromosomal abnormalities, including Down's Syndrome (Trisomy 21) and Trisomy 18, as well as open neural tube defects including spina bifida. Ultrasound examination is performed between 11 weeks and 13 weeks gestational age. Blood tests are drawn after the ultrasound and again later in the between 15 and 21 weeks gestational age. Please let your physician know if you are interested in this testing. It will require an appointment withour petroleum laboratory technician. This is not an ultrasound performed by a physician in our office during a routine visit. SIGNS AND SYMPTOMS OF LABOR 1. Contractions every 10 minutes or more often 2. Clear, pink, or brownish fluid (water) leaking from vagina 3. Feeling that baby is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 Auto-Generate d Referral 02/16/2024 03/17/2025 1 1 Specialty Diagnoses / Procedures Referred By Contac t Referred To Contact XR IMAGING Diagnoses Foot pain, right Procedures XR FOOT GENERAL 3V AP/LAT/OBL RIGHT RADEX FOOT COMPLETE MINIMUM 3 VIEWS Jzazy Barragan, CODER.SMASH PIECER [address] [place] [address] [place] [address] Referral ID Status Reason Start Date Expiration Date V isits Requested Visits Authorized [id number] Closed Auto-Generate d Referral 02/16/2024 03/17/2025 1 1 Additional Source Comments INFORMATION SOURCE (unrecogn ized section and content) DATE CREATED AUTHOR 05/06/[address] [facility] DATE CREATED AUTHOR AUTHOR'S ORGANIZ ATION 12/14/2019 [facility] DATE CREATED AUTHOR AUTHOR'S ORGANIZ ATION 12/16/2023 [facility] DATE CREATED AUTHOR AUTHOR'S ORGANIZ ATION 11/29/2024 [facility] DATE CREATED AUTHOR AUTHOR'S ORGANIZ ATION 12/31/2024 [facility] DATE CREATED AUTHOR AUTHOR[facility]S [facility]GANIZ ATION [facility] DATE CREATED AUTHOR AUTHOR'S ORGANIZ ATION 01/11/2025 [facility] DATE CREATED AUTHOR AUTHOR'S ORGANIZ ATION 01/11/2025 [facility] Source Comments (unrecognize d section and content) In the event this informatio n is protected by the Federal Confidentiality of Alcohol and Drug Abuse Patient Records regulations: The Federal rules restrict any use of the information to criminally investigate or prosecute any alcohol or drug abuse patient.[facility] the event this information is protected by the Federal Confidentiality of Alcohol and Drug Abuse Patient Records regulations: The Federal rules restrict any use of the information to criminally investigate or prosecute any alcohol or drug abuse patient.[facility] the event this information is protected by the Federal Confidentiality of Alcohol and Drug Abuse Patient Records regulations: The Federal rules restrict any use of the information to criminally investigate or prosecute any alcohol or drug abuse patient.[facility] the event this information is protected by the Federal Confidentiality of Alcohol and Drug Abuse Patient Records regulations: The Federal rules restrict any use of the information to criminally investigate or prosecute any alcohol or drug abuse patient.[facility] the event this information is protected by the Federal Confidentiality of Alcohol and Drug Abuse Patient Records regulations: The Federal rules restrict any use of the information to criminally investigate or prosecute any alcohol or drug abuse patient.[facility] the event this information is protected by the Federal Confidentiality of Alcohol and Drug Abuse Patient Records regulations: The Federal rules restrict any use of the information to criminally investigate or prosecute any alcohol or drug abuse patient.[facility] the event this information is protected by the Federal Confidentiality of Alcohol and Drug Abuse Patient Records regulations: The Federal rules restrict any use of the information to criminally investigate or prosecute any alcohol or drug abuse patient.[facility] the event this information is protected by the Federal Confidentiality of Alcohol and Drug Abuse Patient Records regulations: The Federal rules restrict any use of the information to criminally investigate or prosecute any alcohol or drug abuse patient.[facility] the event this information is protected by the Federal Confidentiality of Alcohol and Drug Abuse Patient Records regulations: The Federal rules restrict any use of the information to criminally investigate or prosecute any alcohol or drug abuse patient.[facility] the event this information is protected by the Federal Confidentiality of Alcohol and Drug Abuse Patient Records regulations: The Federal rules restrict any use of the information to criminally investigate or prosecute any alcohol or drug abuse patient.[facility] CampusIn the event this information is protected by the Federal Confidentiality of Alcohol and Drug Abuse Patient Records regulations: The Federal rules restrict any use of the information to criminally investigate or prosecute any alcohol or drug abuse patient.[facility] the event this information is protected by the Federal Confidentiality of Alcohol and Drug Abuse Patient Records regulations: The Federal rules restrict any use of the information to criminally investigate or prosecute any alcohol or drug abuse patient.[facility] Campus[facility] the event this information is protected by the Federal Confidentiality of Alcohol and Drug Abuse Patient Records regulations: The Federal rules restrict any use of the information to criminally investigate or prosecute any alcohol or drug abuse patient.[facility] Campus[facility] the event this information is protected by the Federal Confidentiality of Alcohol and Drug Abuse Patient Records regulations: The Federal rules restrict any use of the information to criminally investigate or prosecute any alcohol or drug abuse patient.[facility] Campus[facility] the event this information is protected by the Federal Confidentiality of Alcohol and Drug Abuse Patient Records regulations: The Federal rules restrict any use of the information to criminally investigate or prosecute any alcohol or drug abuse patient.[facility] CampusIn the event this information is protected by the Federal Confidentiality of Alcohol and Drug Abuse Patient Records regulations: The Federal rules restrict any use of the information to criminally investigate or prosecute any alcohol or drug abuse patient.[facility] Campus[facility] the event this information is protected by the Federal Confidentiality of Alcohol and Drug Abuse Patient Records regulations: The Federal rules restrict any use of the information to criminally investigate or prosecute any alcohol or drug abuse patient.[facility] CampusIn the event this information is protected by the Federal Confidentiality of Alcohol and Drug Abuse Patient Records regulations: The Federal rules restrict any use of the information to criminally investigate or prosecute any alcohol or drug abuse patient.[facility] Campus[facility] the event this information is protected by the Federal Confidentiality of Alcohol and Drug Abuse Patient Records regulations: The Federal rules restrict any use of the information to criminally investigate or prosecute any alcohol or drug abuse patient.[facility] CampusIn the event this information is protected by the Federal Confidentiality of Alcohol and Drug Abuse Patient Records regulations: The Federal rules restrict any use of the information to criminally investigate or prosecute any alcohol or drug abuse patient.[facility] CampusIn the event this information is protected by the Federal Confidentiality of Alcohol and Drug Abuse Patient Records regulations: The Federal rules restrict any use of the information to criminally investigate or prosecute any alcohol or drug abuse patient.[facility] CampusIn the event this information is protected by the Federal Confidentiality of Alcohol and Drug Abuse Patient Records regulations: The Federal rules restrict any use of the information to criminally investigate or prosecute any alcohol or drug abuse patient.[facility] CampusIn the event this information is protected by the Federal Confidentiality of Alcohol and Drug Abuse Patient Records regulations: The Federal rules restrict any use of the information to criminally investigate or prosecute any alcohol or drug abuse patient.[facility] CampusIn the event this information is protected by the Federal Confidentiality of Alcohol and Drug Abuse Patient Records regulations: The Federal rules restrict any use of the information to criminally investigate or prosecute any alcohol or drug abuse patient.[facility] CampusIn the event this information is protected by the Federal Confidentiality of Alcohol and Drug Abuse Patient Records regulations: The Federal rules restrict any use of the information to criminally investigate or prosecute any alcohol or drug abuse patient.[facility] CampusIn the event this information is protected by the Federal Confidentiality of Alcohol and Drug Abuse Patient Records regulations: The Federal rules restrict any use of the information to criminally investigate or prosecute any alcohol or drug abuse patient.[facility] CampusIn the event this information is protected by the Federal Confidentiality of Alcohol and Drug Abuse Patient Records regulations: The Federal rules restrict any use of the information to criminally investigate or prosecute any alcohol or drug abuse patient.[facility] CampusIn the event this information is protected by the Federal Confidentiality of Alcohol and Drug Abuse Patient Records regulations: The Federal rules restrict any use of the information to criminally investigate or prosecute any alcohol or drug abuse patient.[facility] CampusIn the event this information is protected by the Federal Confidentiality of Alcohol and Drug Abuse Patient Records regulations: The Federal rules restrict any use of the information to criminally investigate or prosecute any alcohol or drug abuse patient.[facility] CampusIn the event this information is protected by the Federal Confidentiality of Alcohol and Drug Abuse Patient Records regulations: The Federal rules restrict any use of the information to criminally investigate or prosecute any alcohol or drug abuse patient.[facility] CampusIn the event this information is protected by the Federal Confidentiality of Alcohol and Drug Abuse Patient Records regulations: The Federal rules restrict any use of the information to criminally investigate or prosecute any alcohol or drug abuse patient.[facility] CampusIn the event this information is protected by the Federal Confidentiality of Alcohol and Drug Abuse Patient Records regulations: The Federal rules restrict any use of the information to criminally investigate or prosecute any alcohol or drug abuse patient.[facility] CampusIn the event this information is protected by the Federal Confidentiality of Alcohol and Drug Abuse Patient Records regulations: The Federal rules restrict any use of the information to criminally investigate or prosecute any alcohol or drug abuse patient.[facility] CampusIn the event this information is protected by the Federal Confidentiality of Alcohol and Drug Abuse Patient Records regulations: The Federal rules restrict any use of the information to criminally investigate or prosecute any alcohol or drug abuse patient.[facility] CampusIn the event this information is protected by the Federal Confidentiality of Alcohol and Drug Abuse Patient Records regulations: The Federal rules restrict any use of the information to criminally investigate or prosecute any alcohol or drug abuse patient.[facility] CampusIn the event this information is protected by the Federal Confidentiality of Alcohol and Drug Abuse Patient Records regulations: The Federal rules restrict any use of the information to criminally investigate or prosecute any alcohol or drug abuse patient.[facility] CampusIn the event this information is protected by the Federal Confidentiality of Alcohol and Drug Abuse Patient Records regulations: The Federal rules restrict any use of the information to criminally investigate or prosecute any alcohol or drug abuse patient.[facility] CampusIn the event this information is protected by the Federal Confidentiality of Alcohol and Drug Abuse Patient Records regulations: The Federal rules restrict any use of the information to criminally investigate or prosecute any alcohol or drug abuse patient.[facility] CampusIn the event this information is protected by the Federal Confidentiality of Alcohol and Drug Abuse Patient Records regulations: The Federal rules restrict any use of the information to criminally investigate or prosecute any alcohol or drug abuse patient.[facility] CampusIn the event this information is protected by the Federal Confidentiality of Alcohol and Drug Abuse Patient Records regulations: The Federal rules restrict any use of the information to criminally investigate or prosecute any alcohol or drug abuse patient.[facility] the event this information is protected by the Federal Confidentiality of Alcohol and Drug Abuse Patient Records regulations: The Federal rules restrict any use of the information to criminally investigate or prosecute any alcohol or drug abuse patient.[facility] CampusIn the event this information is protected by the Federal Confidentiality of Alcohol and Drug Abuse Patient Records regulations: The Federal rules restrict any use of the information to criminally investigate or prosecute any alcohol or drug abuse patient.[facility] CampusIn the event this information is protected by the Federal Confidentiality of Alcohol and Drug Abuse Patient Records regulations: The Federal rules restrict any use of the information to criminally investigate or prosecute any alcohol or drug abuse patient.[facility] ClinicIn the event this information is protected by the Federal Confidentiality of Alcohol and Drug Abuse Patient Records regulations: The Federal rules restrict any use of the information to criminally investigate or prosecute any alcohol or drug abuse patient.[facility] CampusIn the event this information is protected by the Federal Confidentiality of Alcohol and Drug Abuse Patient Records regulations: The Federal rules restrict any use of the information to criminally investigate or prosecute any alcohol or drug abuse patient.[facility] CampusIn the event this information is protected by the Federal Confidentiality of Alcohol and Drug Abuse Patient Records regulations: The Federal rules restrict any use of the information to criminally investigate or prosecute any alcohol or drug abuse patient.[facility] CampusIn the event this information is protected by the Federal Confidentiality of Alcohol and Drug Abuse Patient Records regulations: The Federal rules restrict any use of the information to criminally investigate or prosecute any alcohol or drug abuse patient.[facility] CampusIn the event this information is protected by the Federal Confidentiality of Alcohol and Drug Abuse Patient Records regulations: The Federal rules restrict any use of the information to criminally investigate or prosecute any alcohol or drug abuse patient.[facility] CampusIn the event this information is protected by the Federal Confidentiality of Alcohol and Drug Abuse Patient Records regulations: The Federal rules restrict any use of the information to criminally investigate or prosecute any alcohol or drug abuse patient.[facility] CampusIn the event this information is protected by the Federal Confidentiality of Alcohol and Drug Abuse Patient Records regulations: The Federal rules restrict any use of the information to criminally investigate or prosecute any alcohol or drug abuse patient.[facility] CampusIn the event this information is protected by the Federal Confidentiality of Alcohol and Drug Abuse Patient Records regulations: The Federal rules restrict any use of the information to criminally investigate or prosecute any alcohol or drug abuse patient.[facility] CampusIn the event this information is protected by the Federal Confidentiality of Alcohol and Drug Abuse Patient Records regulations: The Federal rules restrict any use of the information to criminally investigate or prosecute any alcohol or drug abuse patient.[facility] CampusIn the event this information is protected by the Federal Confidentiality of Alcohol and Drug Abuse Patient Records regulations: The Federal rules restrict any use of the information to criminally investigate or prosecute any alcohol or drug abuse patient.[facility] CampusIn the event this information is protected by the Federal Confidentiality of Alcohol and Drug Abuse Patient Records regulations: The Federal rules restrict any use of the information to criminally investigate or prosecute any alcohol or drug abuse patient.[facility] CampusIn the event this information is protected by the Federal Confidentiality of Alcohol and Drug Abuse Patient Records regulations: The Federal rules restrict any use of the information to criminally investigate or prosecute any alcohol or drug abuse patient.[facility] CampusIn the event this information is protected by the Federal Confidentiality of Alcohol and Drug Abuse Patient Records regulations: The Federal rules restrict any use of the information to criminally investigate or prosecute any alcohol or drug abuse patient.[facility] CampusIn the event this information is protected by the Federal Confidentiality of Alcohol and Drug Abuse Patient Records regulations: The Federal rules restrict any use of the information to criminally investigate or prosecute any alcohol or drug abuse patient.[facility] CampusIn the event this information is protected by the Federal Confidentiality of Alcohol and Drug Abuse Patient Records regulations: The Federal rules restrict any use of the information to criminally investigate or prosecute any alcohol or drug abuse patient.[facility] CampusIn the event this information is protected by the Federal Confidentiality of Alcohol and Drug Abuse Patient Records regulations: The Federal rules restrict any use of the information to criminally investigate or prosecute any alcohol or drug abuse patient.[facility] CampusIn the event this information is protected by the Federal Confidentiality of Alcohol and Drug Abuse Patient Records regulations: The Federal rules restrict any use of the information to criminally investigate or prosecute any alcohol or drug abuse patient.[facility] CampusIn the event this information is protected by the Federal Confidentiality of Alcohol and Drug Abuse Patient Records regulations: The Federal rules restrict any use of the information to criminally investigate or prosecute any alcohol or drug abuse patient.[facility] CampusIn the event this information is protected by the Federal Confidentiality of Alcohol and Drug Abuse Patient Records regulations: The Federal rules restrict any use of the information to criminally investigate or prosecute any alcohol or drug abuse patient.[facility] CampusIn the event this information is protected by the Federal Confidentiality of Alcohol and Drug Abuse Patient Records regulations: The Federal rules restrict any use of the information to criminally investigate or prosecute any alcohol or drug abuse patient.[facility] CampusIn the event this information is protected by the Federal Confidentiality of Alcohol and Drug Abuse Patient Records regulations: The Federal rules restrict any use of the information to criminally investigate or prosecute any alcohol or drug abuse patient.[facility] CampusIn the event this information is protected by the Federal Confidentiality of Alcohol and Drug Abuse Patient Records regulations: The Federal rules restrict any use of the information to criminally investigate or prosecute any alcohol or drug abuse patient.[facility] CampusIn the event this information is protected by the Federal Confidentiality of Alcohol and Drug Abuse Patient Records regulations: The Federal rules restrict any use of the information to criminally investigate or prosecute any alcohol or drug abuse patient.[facility] CampusIn the event this information is protected by the Federal Confidentiality of Alcohol and Drug Abuse Patient Records regulations: The Federal rules restrict any use of the information to criminally investigate or prosecute any alcohol or drug abuse patient.[facility] CampusIn the event this information is protected by the Federal Confidentiality of Alcohol and Drug Abuse Patient Records regulations: The Federal rules restrict any use of the information to criminally investigate or prosecute any alcohol or drug abuse patient.[facility] CampusIn the event this information is protected by the Federal Confidentiality of Alcohol and Drug Abuse Patient Records regulations: The Federal rules restrict any use of the information to criminally investigate or prosecute any alcohol or drug abuse patient.[facility] CampusIn the event this information is protected by the Federal Confidentiality of Alcohol and Drug Abuse Patient Records regulations: The Federal rules restrict any use of the information to criminally investigate or prosecute any alcohol or drug abuse patient.[facility] CampusIn the event this information is protected by the Federal Confidentiality of Alcohol and Drug Abuse Patient Records regulations: The Federal rules restrict any use of the information to criminally investigate or prosecute any alcohol or drug abuse patient.[facility] CampusIn the event this information is protected by the Federal Confidentiality of Alcohol and Drug Abuse Patient Records regulations: The Federal rules restrict any use of the information to criminally investigate or prosecute any alcohol or drug abuse patient.[facility] CampusIn the event this information is protected by the Federal Confidentiality of Alcohol and Drug Abuse Patient Records regulations: The Federal rules restrict any use of the information to criminally investigate or prosecute any alcohol or drug abuse patient.[facility] CampusIn the event this information is protected by the Federal Confidentiality of Alcohol and Drug Abuse Patient Records regulations: The Federal rules restrict any use of the information to criminally investigate or prosecute any alcohol or drug abuse patient.[facility] CampusIn the event this information is protected by the Federal Confidentiality of Alcohol and Drug Abuse Patient Records regulations: The Federal rules restrict any use of the information to criminally investigate or prosecute any alcohol or drug abuse patient.[facility] CampusIn the event this information is protected by the Federal Confidentiality of Alcohol and Drug Abuse Patient Records regulations: The Federal rules restrict any use of the information to criminally investigate or prosecute any alcohol or drug abuse patient.[facility] CampusIn the event this information is protected by the Federal Confidentiality of Alcohol and Drug Abuse Patient Records regulations: The Federal rules restrict any use of the information to criminally investigate or prosecute any alcohol or drug abuse patient.[facility] CampusIn the event this information is protected by the Federal Confidentiality of Alcohol and Drug Abuse Patient Records regulations: The Federal rules restrict any use of the information to criminally investigate or prosecute any alcohol or drug abuse patient.[facility] CampusIn the event this information is protected by the Federal Confidentiality of Alcohol and Drug Abuse Patient Records regulations: The Federal rules restrict any use of the information to criminally investigate or prosecute any alcohol or drug abuse patient.[facility] CampusIn the event this information is protected by the Federal Confidentiality of Alcohol and Drug Abuse Patient Records regulations: The Federal rules restrict any use of the information to criminally investigate or prosecute any alcohol or drug abuse patient.[facility] CampusIn the event this information is protected by the Federal Confidentiality of Alcohol and Drug Abuse Patient Records regulations: The Federal rules restrict any use of the information to criminally investigate or prosecute any alcohol or drug abuse patient.[facility] CampusIn the event this information is protected by the Federal Confidentiality of Alcohol and Drug Abuse Patient Records regulations: The Federal rules restrict any use of the information to criminally investigate or prosecute any alcohol or drug abuse patient.[facility] CampusIn the event this information is protected by the Federal Confidentiality of Alcohol and Drug Abuse Patient Records regulations: The Federal rules restrict any use of the information to criminally investigate or prosecute any alcohol or drug abuse patient.[facility] CampusIn the event this information is protected by the Federal Confidentiality of Alcohol and Drug Abuse Patient Records regulations: The Federal rules restrict any use of the information to criminally investigate or prosecute any alcohol or drug abuse patient.[facility]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
[2025-01-12 21:00] VITALS: BP 118/65; PULSE 87; RESP 15; O2SAT 98
[2025-01-12 21:19] LABS: Magnesium 1.5 mg/dL (1.5-2.2)
[2025-01-12 22:01] VITALS: BMI 39.0
[2025-01-12] MEDS: Ergocalciferol 1.25 MG (50, 000 UNIT) Capsule PO (22:57)
[2025-01-12] MEDS: NORMAL SALINE 0.9% IVP (22:57)
[2025-01-12] MEDS: CALCIUM GLUCONATE IVP (22:57)
[2025-01-13] VITALS (7 sets, daily range): BP systolic 108–137; BP diastolic 60–78; PULSE 60–85; RESP 12–16; TEMP 36.5–36.9; O2SAT 97–100; BMI 39.0
[2025-01-13 00:08] LABS: Anion Gap 19 (5-15); BUN 8 mg/dL (4-19); BUN/Creat Ratio 9.8 RATIO (10-20); Calcium,Total 6.7 mg/dL (7.6-11.0); Carbon Dioxide 22.5 mmol/L (21.0-32.0); Chloride 100 mmol/L (98-108); Estimated Creatinine Clearance 139.71 ml/min (50-250); Glucose 91 mg/dL (70-99); Potassium 3.5 mmol/L (3.3-5.1); Vitamin D,25 Hydroxy 39.1 ng/mL (30-100)
[2025-01-13 00:43] LABS: Calcium,Total 6.0 mg/dL (7.6-11.0)
[2025-01-13 02:53] LABS: Anion Gap 17 (5-15); BUN 9 mg/dL (4-19); BUN/Creat Ratio 13.7 RATIO (10-20); Calcium,Total 6.6 mg/dL (7.6-11.0); Carbon Dioxide 23.2 mmol/L (21.0-32.0); Chloride 101 mmol/L (98-108); Estimated Creatinine Clearance 179.01 ml/min (50-250); Glucose 119 mg/dL (70-99); Potassium 3.3 mmol/L (3.3-5.1)
[2025-01-13] MEDS: 0.9% Saline Lock 10 ML Syringe IV (05:28)
[2025-01-13 06:55] LABS: Hematocrit 39.1 % (37-47); Hemoglobin 13.1 g/dL (12.0-15.0); Immature Granulocytes Count 0.020 X10^3/uL (0.0-0.0); Mean Corp Hgb Conc 33.5 g/dL (32-36); Mean Corpuscular Volume 81.6 fL (81-99); Mean Platelet Vol. 10.3 fl (6.2-12.0); NRBC Flagged by Analyzer 0 % (0-5); Platelet Count 278 K/mm3 (150-450); RBC Distribution Width CV 12.9 % (11.6-14.6); RBC Distribution Width SD 38.5 fl (35.1-43.9); Red Blood Count 4.79 M/mm3 (4.2-5.4); White Blood Count 7.1 K/mm3 (4.4-11.0)
[2025-01-13 07:19] LABS: Anion Gap 16 (5-15); BUN 9 mg/dL (4-19); BUN/Creat Ratio 11.5 RATIO (10-20); Calcium,Total 6.9 mg/dL (7.6-11.0); Carbon Dioxide 25.7 mmol/L (21.0-32.0); Chloride 100 mmol/L (98-108); Estimated Creatinine Clearance 143.21 ml/min (50-250); Glucose 122 mg/dL (70-99); Potassium 3.7 mmol/L (3.3-5.1)
[2025-01-13 07:31] LABS: PTHIN 6 pg/mL (11-61)
[2025-01-13 11:33] LABS: Anion Gap 16 (5-15); BUN 8 mg/dL (4-19); BUN/Creat Ratio 9.7 RATIO (10-20); Calcium,Total 7.3 mg/dL (7.6-11.0); Carbon Dioxide 24.1 mmol/L (21.0-32.0); Chloride 101 mmol/L (98-108); Estimated Creatinine Clearance 138.03 ml/min (50-250); Glucose 110 mg/dL (70-99); Potassium 4.4 mmol/L (3.3-5.1)
--- NOTE | 2025-01-13 12:00 | CASEMGMT ---
RN CM Face to Face with patient for initial transition planning/care coordination assessment. RN CM introduced self and role at [facility]. Patient lying in bed, alert and oriented. Patient willing to participate in assessment and is able to answer all questions appropriately. Care providers, pharmacy, and demographics verified. Strata: 2 PCP: [facility] Specialists: [facility] Preferred Pharmacy: [facility] Insurance: [place] Prescription Benefit: yes Living Will/HPOA: none LNOK: Parents, boyfriend Living Arrangements: Patient lives with boyfriend and 3mo son in a 2 story townhouse. Patient is independent and able to ambulate stairs. Transportation: self, boyfriend DME/HHC: Patient has shower chair. No previous HHC or SNF. Patient wishes to discharge home, denies need for home health at this time. Patient states she has no further needs or concerns at this time. CM to follow for discharge planning needs that may arise. Disposition Plan: Patient to discharge home with family support and follow-up plans in place. Mechelle BYNUM, RN, CM
[2025-01-13 16:12] LABS: Anion Gap 18 (5-15); BUN 8 mg/dL (4-19); BUN/Creat Ratio 9.1 RATIO (10-20); Calcium,Total 7.7 mg/dL (7.6-11.0); Carbon Dioxide 22.1 mmol/L (21.0-32.0); Chloride 102 mmol/L (98-108); Estimated Creatinine Clearance 127.29 ml/min (50-250); Glucose 111 mg/dL (70-99); Potassium 3.9 mmol/L (3.3-5.1)
--- NOTE | 2025-01-13 18:34 | PN.HOSP_ITS ---
Reason for Visit Chief Complaint: Muscle cramping, paresthesias Subjective Subjective Patient was seen and examined today, she still complains of some tingling in her hands, her last calcium this afternoon was normal at 7.7. It is possible that the patient's parathyroid glands were removed during her surgery, she will need close follow-up as an outpatient. Objective Data Objective Data Vital Signs: Vital Signs Temp Pulse Resp BP Pulse Ox O2 Del Method 98.4 F 85 14 137/78 H 100 Room Air 01/13/25 14:14 01/13/25 16:09 01/13/25 14:14 01/13/25 14:14 01/13/25 14:14 01/13/25 14:14 Oxygen Delivery Method Room Air Weight: 113.2 kg Body Mass Index (BMI) 39.0 Intake & Output: Intake and Output for Last 24 Hours 01/11/25 01/12/25 01/13/25 23:59 23:59 23:59 Intake Total 1687.5 / 1687.5 Balance 1687.5 / 1687.5 Lab / Micro Data 01/13/25 06:00 01/13/25 22:16 Labs: Laboratory Results - last 24 hr 01/12/25 17:19: Calcium 6.0 L*, Phosphorus 6.6 H, Magnesium 1.5 01/12/25 23:15: Sodium 141, Potassium 3.5, Chloride 100, Carbon Dioxide 22.5, A nion Gap 19 H, BUN 8, Creatinine 0.82, Estim Creat Clear Calc 139.71, Est GFR (MDRD) Non-Af 103, BUN/Creatinine Ratio 9.8 L, Glucose 91, Calcium 6.7 L, Vitamin D 25-Hydroxy 39.1 01/13/25 02:16: Sodium 141, Potassium 3.3, Chloride 101, Carbon Dioxide 23.2, A nion Gap 17 H, BUN 9, Creatinine 0.64 L, Estim Creat Clear Calc 179.01, Est GFR (MDRD) Non-Af 128, BUN/Creatinine Ratio 13.7, Glucose 119 H, Calcium 6.6 L 01/13/25 06:00: WBC 7.1, RBC 4.79, Hgb 13.1, Hct 39.1, MCV 81.6, MCH 27.3, MCHC 33.5, RDW Std Deviation 38.5, RDW Coeff of Jerel 12.9, Plt Count 278, MPV 10.3, Immature Gran % (Auto) 0.300, Neut % (Auto) 57.0, Lymph % (Auto) 33.0, [place] % (Auto) 7.5, Eos % (Auto) 1.8, Baso % (Auto) 0.4, Absolute Neuts (auto) 4.0, Absolute Lymphs (auto) 2.33, Nucleated RBC % 0, Sodium 141, Potassium 3.7, Chloride 100, Carbon Dioxide 25.7, Anion Gap 16 H, BUN 9, Creatinine 0.80, Estim Creat Clear Calc 143.21, Est GFR (MDRD) Non-Af 107, BUN/Creatinine Ratio 11.5, G lucose 122 H, Calcium 6.9 L, PTH Intact 6 L 01/13/25 10:35: Sodium 141, Potassium 4.4, Chloride 101, Carbon Dioxide 24.1, A nion Gap 16 H, BUN 8, Creatinine 0.83, Estim Creat Clear Calc 138.03, Est GFR (MDRD) Non-Af 102, BUN/Creatinine Ratio 9.7 L, Glucose 110 H, Calcium 7.3 L 01/13/25 14:56: Sodium 141, Potassium 3.9, Chloride 102, Carbon Dioxide 22.1, A nion Gap 18 H, BUN 8, Creatinine 0.90, Estim Creat Clear Calc 127.29, Est GFR (MDRD) Non-Af 93, BUN/Creatinine Ratio 9.1 L, Glucose 111 H, Calcium 7.7 Physical Exam Const alert, oriented x3, no apparent distress and healthy appearing General Appearance: cooperative, well kempt and well developed Orientation / Consciousness: awake, oriented to person, oriented to place and oriented to time HEENT normocephalic and moist oral mucous membranes Eyes PERRL, EOMs intact bilaterally and conjunctivae normal Neck supple, no JVD, thyroid normal and no carotid bruits General: trachea midline Resp normal respiratory effort and clear to auscultation bilaterally Auscultation: Negative for rales, rhonchi or wheezes Cardio regular rate, regular rhythm, no murmurs, no rub and no gallops GI normal to inspection, nondistended, normoactive bowel sounds, soft to palpation, non-tender and non-distended Extremity no clubbing, cyanosis or edema Skin no rashes or lesions noted General Skin Exam: no breakdown Neuro oriented x3, CN's II-XII intact bilaterally, no focal motor deficits and no sensory deficits noted Sensorium / Orientation: awake and alert Speech: speech normal Psych affect normal Assessment & Plan Assessment/Plan (1) Hypocalcemia: PLAN: Plan 1. 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
[2025-01-13 23:06] LABS: Anion Gap 20 (5-15); BUN 8 mg/dL (4-19); BUN/Creat Ratio 9.2 RATIO (10-20); Calcium,Total 7.5 mg/dL (7.6-11.0); Carbon Dioxide 20.2 mmol/L (21.0-32.0); Chloride 100 mmol/L (98-108); Estimated Creatinine Clearance 128.72 ml/min (50-250); Glucose 141 mg/dL (70-99); Potassium 3.5 mmol/L (3.3-5.1)
--- NOTE | 2025-01-13 23:11 | PCM.HOSP.N ---
Hospitalist Note Patient with recurrent paresthesias. BMP obtained and Ca mildly decreased from prior 7.7->7.5, will administer Ca gluc 1 gm IV x 1 with planned repeat level in AM.
[2025-01-14 03:00] VITALS: BP 116/72; PULSE 75; RESP 14; TEMP 36.8; O2SAT 100
[2025-01-14 04:54] VITALS: BMI 39.7
[2025-01-14 06:43] LABS: Calcium 7.0 mg/dL (7.6-11.0)
[2025-01-14] MEDS: Calcium (Elemental) 500 MG Tablet PO ×2 (09:13→11:49)
[2025-01-14 10:09] VITALS: BP 129/75; PULSE 79; RESP 14; TEMP 36.9; O2SAT 99
--- NOTE | 2025-01-14 11:21 | DCINST_ITS ---
Discharge Instructions DC O2, CPAP, BIPAP needs Home O2 Discharge instructions: No Dressing / Incision Discharge Activity: Return to Normal Activity Weight Bearing Status: Full weight bearing Follow Up Care Test Results: Test results from this visit will be discussed in further detail at your follow- up appointment, if applicable. Discharge Plan Admission Admit Date/Time: 01/12/25 19:41 Attending Provider: Severiano Roldan Primary Care Provider: Jolanta Cerna Consulting Providers: Paula Aparicio Instructions Additional Instructions / Restrictions: I recommend you take calcium 3 to 4 g a day or the dose that will be recommended by your reactor operator Follow-up with your reactor operator at your regular appointment time-within 2 weeks You may want to consider taking magnesium to 50 mg - 1000 mg divided into 2-4 daily doses, this may cause loose stools however Discharge Orders/Prescriptions Prescriptions: New calcitriol 0.25 mcg Capsule 0.25 mcg PO BID Qty: 60 0RF Continued levothyroxine 125 mcg tablet 125 mcg PO DAILY quetiapine 25 mg tablet 25 mg PO QHS vit-iron fum-folic ac 27-1 mg tablet 1 tab PO DAILY Discontinued calcitriol 0.25 mcg capsule 0.25 mcg PO BID Qty: 14 0RF Referrals / Follow Up: Jolanta Cerna, ENERGY CONSERVATION SPECIALIST [Primary Care Provider] - See Referral Note (At your next appointment time) Disposition Disposition (needs filled in before D/C Order can be placed): Home, Self Care
--- NOTE | 2025-01-14 11:36 | DS.PCM_ITS ---
Providers Date of Admission: 01/12/25 Date of Discharge: 01/14/25 Primary Care Physician: SARA Cordova Reason For Visit: ACUTE HYPOCALCEMIA S/P THYROIDECTOMY Diagnosis Discharge Diagnosis (1) Hypocalcemia: Status: Acute Code(s): E83.51 - Hypocalcemia Plan 1. 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 of thyroidectomy-patient will continue on calcium and vitamin D supplementation, calcium will be rechecked tomorrow #2 bipolar disorder-patient is on Seroquel #3 hypothyroidism-patient is on Synthroid Total clinical time spent by myself addressing the patient's medical issues, reviewing all of her data, and collaborating with patient's care team: 35 minutes Medications at Discharge Home Medications vit with calcium-iron fum-folic acid 27 mg-1 mg tablet 1 tab PO DAILY 03/13/24 quetiapine 25 mg tablet 25 mg PO QHS see doc 03/13/24 levothyroxine 125 mcg tablet 125 mcg PO DAILY Thyroid replacement 01/10/25 calcitriol 0.25 mcg capsule 0.25 mcg PO BID #60 caps 01/14/25 Hospital Course Operations None Procedures None Summary of Care Provided Minutes Spent on Discharge: 30 Hospital Course: This 24-year-old white female was seen in the emergency room at [facility] with complaints of muscle cramping in her hands and tingling in her face. She had been seen in the emergency room 3 days prior and noted to have a low calcium. Patient stated that she had had her thyroid removed approximately a week before, she sees an animal husbandry teacher and currently takes calcium several times a day. Workup in the emergency room included a CBC CHEM panel-both of these were normal, patient's calcium level however was low at 6. Patient was admitted to PCU and given IV calcium, her calcium levels were monitored and eventually stabilized. On 01/14/2025, patient was seen and examined: On examination she appeared in good health and spirits, she does not appear to be in any distress. Vital signs as documented. Skin warm and dry and without overt rashes. Neck without JVD, thyroid appears normal, trachea is midline, neck is supple. Lungs clear, normal air movement was noted. Heart exam notable for regular rhythm, normal sounds and absence of murmurs, rubs or gallops. Abdomen unremarkable and without evidence of organomegaly, masses, or abdominal aortic enlargement, bowel sounds are present in all 4 quadrants, no abdominal tenderness was noted. Extremities nonedematous, no cyanosis was noted, no clubbing was noted. Neuro: Cranial nerves II through XII are grossly intact, no focal motor deficits were noted, sensation to light touch and pinprick is intact, motor exam 5/5 throughout. Psych: Patient is alert and oriented x3, she does not appear anxious or depressed, she does not appear agitated. Patient was felt to be stable for discharge home on 01/14/2025. Weight / BMI Weight Weight: 115.2 kg Body Mass Index (BMI) 39.7 ABG / Lab / Microbiology Data 01/13/25 06:00 01/13/25 22:16 Laboratory: Laboratory Results - last 24 hr 01/13/25 14:56: Sodium 141, Potassium 3.9, Chloride 102, Carbon Dioxide 22.1, A nion Gap 18 H, BUN 8, Creatinine 0.90, Estim Creat Clear Calc 127.29, Est GFR (MDRD) Non-Af 93, BUN/Creatinine Ratio 9.1 L, Glucose 111 H, Calcium 7.7 01/13/25 22:16: Sodium 140, Potassium 3.5, Chloride 100, Carbon Dioxide 20.2 L, Anion Gap 20 H, BUN 8, Creatinine 0.89, Estim Creat Clear Calc 128.72, Est GFR (MDRD) Non-Af 94, BUN/Creatinine Ratio 9.2 L, Glucose 141 H, Calcium 7.5 L 01/14/25 05:08: Calcium 7.0 L D/C Instructions Weight Bearing Status: Full weight bearing DC O2, CPAP, BIPAP Needs Home O2 Discharge instructions: No Meaningful Use Info Meaningful Use Meaningful Use Diagnoses (Choose all that apply): None applicable Discharge Plan Admission Admit Date/Time: 01/12/25 19:41 Attending Provider: Severiano Roldan Primary Care Provider: Jolanta Cerna Consulting Providers: Paula Aparicio Instructions Additional Instructions / Restrictions: I recommend you take calcium 3 to 4 g a day or the dose that will be recommended by your animal husbandry teacher Follow-up with your animal husbandry teacher at your regular appointment time-within 2 weeks You may want to consider taking magnesium to 50 mg - 1000 mg divided into 2-4 daily doses, this may cause loose stools however Discharge Orders/Prescriptions Prescriptions: New calcitriol 0.25 mcg Capsule 0.25 mcg PO BID Qty: 60 0RF Continued levothyroxine 125 mcg tablet 125 mcg PO DAILY quetiapine 25 mg tablet 25 mg PO QHS vit-iron fum-folic ac 27-1 mg tablet 1 tab PO DAILY Discontinued calcitriol 0.25 mcg capsule 0.25 mcg PO BID Qty: 14 0RF Referrals / Follow Up: Jolanta Cerna, ONLINE RETAILER [Primary Care Provider] - See Referral Note (At your next appointment time) Disposition Disposition (needs filled in before D/C Order can be placed): Home, Self Care Charges/Coding Visit Charges Inpatient E&M: 76150 Disch Hosp
[2025-01-14] MEDS: Prenatal Vits Tablet 1 TABLET PO (11:51)
--- NOTE | 2025-01-14 11:57 | CASEMGMT ---
Patient has order for discharge. RN CM in to discuss needs at discharge. Patient states she is feeling much better and denies needs or help at discharge. Patient had no further questions or concerns.
--- NOTE | 2025-01-14 12:09 | NURSING ---
reviewed dc instructions picked up breast milk from ob
[2025-01-17 13:08] LABS: Vitamin D 1,25-Dihydroxy 23.2 pg/mL (24.8-81.5)
== END 2025-01-14 12:10 | disposition home or self-care (01) | DRG 641 ==
LOC: ED 20:24 → PCU 20:36
PROVIDERS: Admitting Provider Family Medicine; Emergency Provider Emergency Medicine; PCP Clinical Nurse Specialist Adult Health; Visit Provider Internal Medicine
DX: E83.51 Hypocalcemia (principal); E89.0 Postprocedural hypothyroidism; F31.9 Bipolar disorder, unspecified; J45.909 Unspecified asthma, uncomplicated; F17.210 Nicotine dependence, cigarettes, uncomplicated; F17.290 Nicotine dependence, other tobacco product, uncomplicated; F41.9 Anxiety disorder, unspecified; Z79.899 Other long term (current) drug therapy
CPT/HCPCS: 36415; 80048; 82306; 82310; 82652; 83735; 83970; 84100; 85025; 99285; A4216; J0612; J2405